=== PATIENT | male | born 1935 ===

== ENCOUNTER 2021-03-07 10:38 | Inpatient (IN) | payer MEDICARE ==
[~2021-03-07] VITALS: Ht 167.6 cm; Wt 74.0 kg
[2021-03-07] MEDS ORDERED: MAG HYDROX/AL HYDROX/SIMETH 30 ML ORAL.SUSP PO PRN (11:45)
[2021-03-07] MEDS ORDERED: ACETAMINOPHEN 325 MG TABLET PO PRN (11:45)
[2021-03-07] MEDS ORDERED: MAGNESIUM HYDROXIDE 2,400 MG/30 ML ORAL.SUSP. PO PRN (11:45)
[2021-03-07] MEDS ORDERED: METHYL SALICYLATE/MENTHOL TOPICAL OINTMENT 57GM TUBE. TP PRN (11:45)
[2021-03-07] MEDS ORDERED: DOCU-109 PO (12:59)
[2021-03-07] MEDS ORDERED: POLY17PO5 PO (12:59)
[2021-03-07] MEDS ORDERED: OLAN5TAB67 PO (12:59)
[2021-03-07] MEDS ORDERED: CYAN100072 PO (12:59)
--- NOTE | 2021-03-07 15:15 | NUR ---
Admission Note with Justification for Admission to [facility] Patient admitted to [facility] for protective oversight for emergency stabilization of acute psychiatric crisis. Pt admitted from: SNF Mode of arrival: POV Accompanied By: unknown Precipitating behaviors that initiated intake and admission: Refused to elevate legs, thinks he's in [facility], refusing skin assessments, wants to take clothes off, argumentative, yelling at people, refusing to eat, refusing meds, delusional, family abandoned him, very angry, calls staff spawn of the devil, paranoid Description of failure of out patient attempts at stabilization in previous setting list behavior and medication trials: Redirection, olanzapine, PCP recommends chetan psych tx Behaviors and assessment findings upon admission: Calm, hunched over r/t curved spine, drowsy at times, several abrasions, +4 pitting edema BLE, groin moist and red, weak, transfers with assist of 2, propels self in w/c, ate all of dinner. Plan: Admit for protective oversight for adjustment and stabilization of medications, behaviors and mood. Intense treatment regimen including groups, medication adjustments, therapy, consistent regimen for ADL's, self care, and sleep hygiene. Daily monitoring by Inpatient staff, Psychiatry, and Medical Physician.
[2021-03-07 15:51] VITALS: BP 166/82
[2021-03-07 17:33] LABS: BASO % 1 % (0-3); EOS # 0.1 x10^3/uL (0.0-0.7); EOS % 2 % (0-3); HEMATOCRIT 34.6 % (39.0-53.0); HEMOGLOBIN 11.9 g/dL (13.0-17.5); LYMPH # 0.7 x10^3/uL (1.0-4.8); LYMPH % 9 % (24-48); MEAN CORPUSCULAR HEMOGLOBIN 36 pg (25-35); MEAN CORPUSCULAR HGB CONC 34 g/dL (31-37); MEAN CORPUSCULAR VOLUME 104 fL (79-100); MONO # 0.7 x10^3/uL (0.0-1.1); MONO % 8 % (0-9); NEUT # 6.3 x10^3uL (1.8-7.7); NEUT % 80 % (31-73); PLATELET COUNT 251 x10^3/uL (140-400); RED BLOOD COUNT 3.33 x10^6/uL (4.30-5.70); RED CELL DISTRIBUTION WIDTH 13.4 % (11.5-14.5); WHITE BLOOD COUNT 7.8 x10^3/uL (4.0-11.0)
[2021-03-07 17:37] LABS: ALBUMIN 3.3 g/dL (3.4-5.0); ALBUMIN/GLOBULIN RATIO 0.7 (1.0-1.7); CALCIUM 8.7 mg/dL (8.5-10.1); CREATININE 1.1 mg/dL (0.7-1.3); GFR 63.6; MAGNESIUM 2.4 mg/dL (1.8-2.4); POTASSIUM 4.1 mmol/L (3.5-5.1); TOTAL BILIRUBIN 0.4 mg/dL (0.2-1.0); TOTAL PROTEIN 7.9 g/dL (6.4-8.2)
[2021-03-07] MEDS: traZODone 50 MG TABLET. PO PRN ×3 (19:52→21:18)
--- NOTE | 2021-03-07 20:13 | PDOC ---
Exam Note: Carmelo Note: Please also refer to the separate dictated note~for this date of service dictated separately.~Patient seen individually. Discussed the patient with Nursing staff reviewed the chart.~Reviewed interim history and current functioning. Reviewed vital signs,~Labs/ Radiology~and current medications noted below. Continue current treatment with the changes noted in the dictated addendum note Assessment: Vital Signs/I&O: Vital Signs Date Time Temp Pulse Resp B/P (MAP) Pulse Ox O2 Delivery O2 Flow Rate FiO2 03/07/21 15:51 98.9 90 18 166/82 (110) 96 Room Air Labs: Laboratory Tests Test 03/07/21 17:09 White Blood Count 7.8 x10^3/uL (4.0-11.0) Red Blood Count 3.33 x10^6/uL (4.30-5.70) L Hemoglobin 11.9 g/dL (13.0-17.5) L Hematocrit 34.6 % (39.0-53.0) L Mean Corpuscular Volume 104 fL (79-100) H Mean Corpuscular Hemoglobin 36 pg (25-35) H Mean Corpuscular Hemoglobin Concent 34 g/dL (31-37) Red Cell Distribution Width 13.4 % (11.5-14.5) Platelet Count 251 x10^3/uL (140-400) Neutrophils (%) (Auto) 80 % (31-73) H Lymphocytes (%) (Auto) 9 % (24-48) L Monocytes (%) (Auto) 8 % (0-9) Eosinophils (%) (Auto) 2 % (0-3) Basophils (%) (Auto) 1 % (0-3) Neutrophils # (Auto) 6.3 x10^3uL (1.8-7.7) Lymphocytes # (Auto) 0.7 x10^3/uL (1.0-4.8) L Monocytes # (Auto) 0.7 x10^3/uL (0.0-1.1) Eosinophils # (Auto) 0.1 x10^3/uL (0.0-0.7) Basophils # (Auto) 0.0 x10^3/uL (0.0-0.2) D-Dimer (Dyan) 1.28 mg/L (0.00-0.50) H Sodium Level 140 mmol/L (136-145) Potassium Level 4.1 mmol/L (3.5-5.1) Chloride Level 104 mmol/L (98-107) Carbon Dioxide Level 28 mmol/L (21-32) Anion Gap 8 (6-14) Blood Urea Nitrogen 16 mg/dL (8-26) Creatinine 1.1 mg/dL (0.7-1.3) Estimated GFR (Cockcroft-Gault) 63.6 BUN/Creatinine Ratio 15 (6-20) Glucose Level 137 mg/dL (70-99) H Calcium Level 8.7 mg/dL (8.5-10.1) Magnesium Level 2.4 mg/dL (1.8-2.4) Total Bilirubin 0.4 mg/dL (0.2-1.0) Aspartate Amino Transferase (AST) 17 U/L (15-37) Alanine Aminotransferase (ALT) 16 U/L (16-63) Alkaline Phosphatase 111 U/L (46-116) Total Protein 7.9 g/dL (6.4-8.2) Albumin 3.3 g/dL (3.4-5.0) L Albumin/Globulin Ratio 0.7 (1.0-1.7) L Current Medications: I have reviewed the current psychotropics carefully including drug interactions. Risk benefit ratio favors no change other than as noted in my dictated progress note. JENNY CHEUNG MD Mar 07, 2021 20:13
[2021-03-07 21:00] LABS: BACTERIA,URINE FEW /HPF (0-FEW); BILIRUBIN,URINE NEG (NEG); CLARITY,URINE HAZY; COLOR,URINE YELLOW; GLUCOSE,URINE NEG (NEG); NITRITE,URINE NEG (NEG); RBC,URINE OCC /HPF (0-2); SQUAMOUS EPITHELIAL CELL,UR OCC /LPF; WBC,URINE >40 /HPF (0-4)
[2021-03-07] MEDS: LORazepam 0.5 MG TABLET PO PRN (21:18)
--- NOTE | 2021-03-07 22:54 | NUR ---
Pt highly agitated and combative this evening. Pt yelling out stating that he needs to leave and is upset about being here. Pt A/O to self only. Cursing at staff. Refused crushed PRNs. Pt refusing to stay in his bed. PRN Zyprexa and Trazodone administered sublingually with staff x5. Pt combative and spit medications on staff. PRNs readministered sublingually. Pt then proceeded to spit phlegm all over the floor. Pt taken to the mats on the quiet room floor for safety. Repeatedly yelling help. Pt undressed and crawled into the hallway. Dr. Naeem israel. Orders received. PRN Ativan and repeat Trazodone administered sublingually with staff x5. Pt placed in onesie. Pt currently asleep on mats in quiet room. Will continue to monitor.
[2021-03-08 06:33] VITALS: BP 165/73
[2021-03-08 07:10] LABS: HEMOGLOBIN A1C 5.6 % (4.8-5.6)
--- NOTE | 2021-03-08 08:26 | EKG ---
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
[2021-03-08 09:10] LABS: THYROXINE 5.1 ug/dL (4.5-12.0)
[2021-03-08] MEDS ORDERED: DOCUSATE SODIUM 100 MG CAPSULE PO PRN (14:00)
[2021-03-08] MEDS ORDERED: POLYETHYLENE GLYCOL 3350 17 GM PACKET. PO PRN (14:00)
--- NOTE | 2021-03-08 16:08 | NUR ---
Nursing note: Patient is in hallway for morning medication & assessment. He is alert and oriented to self only. He propels self in w/c, requires a 2:1 assist with transfers. Patient denies pain/discomfort. He is currently resting in w/c in hallway with eyes closed. This nurse noted orders for nystatin powder BID. Will continue to monitor.
[2021-03-08 16:11] VITALS: BP 130/74
[2021-03-08 16:32] LABS: THYROID STIM HORMONE (TSH) 0.845 uIU/mL (0.358-3.740)
[2021-03-08] MEDS: traZODone 50 MG TABLET. PO PRN (20:50)
[2021-03-08] MEDS: NYSTATIN TOPICAL POWDER 15GM BOTTLE. TP SCH (20:50)
--- NOTE | 2021-03-08 21:06 | PDOC ---
Exam Note: Carmelo Note: Please also refer to the separate dictated note~for this date of service dictated separately.~Patient seen individually. Discussed the patient with Nursing staff reviewed the chart.~Reviewed interim history and current functioning. Reviewed vital signs,~Labs/ Radiology~and current medications noted below. Continue current treatment with the changes noted in the dictated addendum note Assessment: Vital Signs/I&O: Vital Signs Date Time Temp Pulse Resp B/P (MAP) Pulse Ox O2 Delivery O2 Flow Rate FiO2 03/08/21 16:11 98.3 83 17 130/74 (92) 96 03/07/21 15:51 Room Air I & O 03/07/21 03/07/21 03/08/21 15:00 23:00 07:00 Intake Total 240 ml Balance 240 ml Current Medications: Meds: Current Medications Medications (Trade) Dose Ordered Sig/Joseline Route PRN Reason Start Time Stop Time Status Last Admin Dose Admin Lorazepam (Ativan) 0.5 mg PRN Q2HR PRN PO ANXIETY / AGITATION 03/07/21 21:15 03/07/21 21:18 Nystatin (Nystop) 1 rivka BID TP 03/08/21 21:00 03/08/21 20:50 I have reviewed the current psychotropics carefully including drug interactions. Risk benefit ratio favors no change other than as noted in my dictated progress note. JENNY CHEUNG MD Mar 08, 2021 21:06
--- NOTE | 2021-03-08 22:17 | HP ---
DATE OF SERVICE: 03/08/2021 ADMIT DATE: 03/07/2021 PSYCHIATRIC ADMISSION HISTORY/EVALUATION This is a late entry, date of service 03/07, covers elements not covered in my initial note, 03/07. I met with the patient evening of 03/07. Previously discussed with Concha Driscoll, intake co-coordinator, reviewed information from [facility] in [place], [place]. IDENTIFYING DATA: The patient is an 85-year-old male referred to us from the above Custodial by his primary care physician/psychiatrist on account of worsening confusion, delusions, believing he was in half-way. He was getting increasingly agitated, psychotic, calling staff members "pawn of the devil." He was yelling at people, refusing to eat, refusing medications. He believes the family had abandoned him and he was angry, irritable with marked mood lability. Behaviors were deemed dangerous, unmanageable at the facility, resulting in this referral. CHIEF COMPLAINT: "I am okay. I won't take my medications, I don't need them." Additionally, after I met with the patient as called by ASHA Moreira late at night as the patient was getting extremely agitated, disruptive, rolling himself on the floor, refusing medications. We did start Zyprexa Zydis p.r.n., gave him trazodone to help him sleep and later Ativan was added p.r.n. and finally, he did sleep. HISTORY OF PRESENT ILLNESS: The patient has a history of dementia, Alzheimer's, vascular type. He has been residing at the [facility] for some time, recently getting more paranoid, delusional with sleep and appetite changes, psychotic, agitated, aggressive. No active suicidal or homicidal ideation. PAST PSYCHIATRIC HISTORY: As above. MEDICAL HISTORY: Cellulitis, left lower extremity, osteoporosis, hearing loss, nonrheumatic aortic valve disease, benign prostatic hypertrophy, history of repeated falls, cognitive deficit edema. CODE STATUS: Full code. DIET: Regular. ALLERGIES: Negative. Takes medications whole, ambulates in wheelchair with 2-person transfer. UA completed 03/07, culture is pending. CURRENT PSYCHOTROPICS: Zyprexa 2.5 mg q. 2 hours p.r.n., psychosis, agitation, trazodone 50 mg at bedtime p.r.n. insomnia, may repeat x2, one hour apart, Ativan 0.5 mg q. 2 hours p.r.n. anxiety, agitation, max 2 mg in 24 hours. All his psychotropics were added after he was hospitalized. FAMILY HISTORY: Noncontributory. SOCIAL HISTORY: No history of alcohol, drug abuse, physical, sexual, elder abuse. He is not known to be a perpetrator. REACTION TO HOSPITALIZATION: The patient oblivious of it. REVIEW OF SYSTEMS: Ambulation impaired wheelchair with 2 person transfer. No CV, , eye, ENT, pulmonary system symptoms on review. Reliability poor. MENTAL STATUS EXAM: The patient was seen individually on evening of 03/07. He is lying in bed, oriented to himself. Insight, judgment, recent and remote memory, attention, concentration, fund of knowledge, poor, consistent with his diagnosis. He is hard of hearing. LABORATORY DATA: Reviewed. IMPRESSION: Major neurocognitive disorder, Alzheimer, vascular with delusion, depression, behavioral disturbance, anxiety disorder, unspecified; impulse control disorder, unspecified; rule out infection. Rest as above. PLAN: Admit to Geropsychiatry unit at [facility]. I will see the patient daily individually from a psychiatric standpoint, medical followup, Dr. Latham/Dr. Taylor. Continue patient on his current psychotropics and as noted, the Zyprexa, trazodone, Ativan were added. Observe baseline and make further adjustments as clinically indicated. ESTIMATED LENGTH OF STAY: 10-12 days. DISPOSITION PLANS: Back to fpc when stable. TUCKER DR: Panchito TID: [id number]
--- NOTE | 2021-03-08 23:13 | NUR ---
Pt located in the hallway this evening sitting calmly in his wheelchair. No agitation or aggression. Compliant with all cares. Pt does not have scheduled HS medications. PRN Trazodone administered crushed in one bite of pudding.
--- NOTE | 2021-03-09 00:19 | CONS ---
DATE OF CONSULTATION: 03/08/2021 ATTENDING PHYSICIAN: Dr. Cheung. We are asked to see this patient for medical consultation. HISTORY OF PRESENT ILLNESS: The patient is an 85-year-old gentleman, admitted to the [facility] with some paranoia. He is demented. He is refusing to eat, refusing his meds, become somewhat delusional. No recent fevers or chills. He has very little medicine. He takes B12 shots. PAST MEDICAL HISTORY: Has indicated he has venous insufficiency, chronic cellulitis, generalized debilitation, benign prostatic hypertrophy, pedal edema. He also has severe kyphoscoliosis. He is hunched over and as a result, he has formal restrictive lung disease. There is no pulmonary symptoms at this time. ALLERGIES: He has no recorded drug allergies. CURRENT MEDICATIONS: Includes B12, docusate, and MiraLax. In the [facility] behavioral unit, he was started on trazodone, olanzapine and lorazepam. SOCIAL HISTORY: He is a nonsmoker, nondrinker. FAMILY HISTORY: Unobtainable. REVIEW OF SYSTEMS: Unobtainable due to the patient's confusion. PHYSICAL EXAMINATION: GENERAL: When I saw him, this is a pleasant elderly gentleman in no acute distress. We tried to have a fairly normal conversation. VITAL SIGNS: His blood pressure is 160/80, pulse is 90 and regular, temperature 98.9 degrees Fahrenheit, oxygen saturation 94% on room air. HEENT: Head is without trauma. The pupils are reactive. Sclerae nonicteric. Oropharynx is clear. NECK: Supple, no bruits identified. LUNGS: Good breath sounds. CARDIOVASCULAR: Showed regular heart tones. No gallops. ABDOMEN: Soft. EXTREMITIES: Showed 2+ nonpitting edema. NEUROLOGIC: Function focally intact. Speech is fluent. He has no focal deficits. PERTINENT LABORATORY STUDIES: Admission hemoglobin was 11.9 g/dL with a white count of 7800. Electrolytes all within normal range. Creatinine 1.1. Transaminases were normal. ASSESSMENT: 1. This 85-year-old gentleman is admitted to the [facility] with increasing delusional behavior with underlying dementia. 2. Kyphoscoliosis with restrictive lung disease, asymptomatic at this time. 3. Stasis dermatitis. 4. Generalized debilitation. 5. Degenerative arthritis. RECOMMENDATIONS: 1. This patient has been seen and is medically stable. 2. I reviewed his limited meds and there are no changes. 3. He is stable from a medical standpoint. We should gladly follow along during his inpatient course. Thank you again for asking me to see this patient for medical consultation. PARMJIT/MARIANNE DR: Safia TID: [id number] CC: JENNY CHEUNG MD
[2021-03-09 06:00] VITALS: BP 146/81
--- NOTE | 2021-03-09 07:33 | PDOC ---
Exam Note: Carmelo Note: This note is a late entry for 03/08/2021 covers elements not covered in my initial note. Subjective: The patient was seen individually in the evening of 03/08/2021 with Ligia BARRY, discussed and reviewed the chart. The patient slept 6-1/4 hours previous night. Nursing staff had called me late last night. He was extremely agitated, rolling himself on the floor. We have added Zyprexa and trazodone to help him sleep and for his psychotic symptoms and then later added Ativan for his anxiety. He finally slept and has done better today, so far this evening he is doing better per nursing staff. UA is pending. Review of Systems: Ambulation impaired, in wheelchair. No CV, , pulmonary, eye, ENT system symptoms on review. Reliability poor. Mental Status Exam: The patient is oriented to himself. Insight and judgment, recent and remote memory, attention and concentration, fund of knowledge is poor consistent with his diagnosis. Laboratory Data: Reviewed. Impression: Major neurocognitive disorder, Alzheimer, vascular with delusion, depression, behavioral disturbance. Anxiety disorder unspecified. Impulse control disorder unspecified and rest from admission. Plan: Continue current psychotropics and p.r.n.s., noted above. Start Zoloft 25 mg a day for 3 days, then 50 mg a day thereafter for his mood and anxiety symptoms. Adjust further as clinically indicated. Assessment: Vital Signs/I&O: Vital Signs Date Time Temp Pulse Resp B/P (MAP) Pulse Ox O2 Delivery O2 Flow Rate FiO2 03/09/21 06:00 98.4 87 16 146/81 (102) 92 03/07/21 15:51 Room Air I & O 03/08/21 03/08/21 03/09/21 15:00 23:00 07:00 Intake Total 600 ml 240 ml 0 ml Balance 600 ml 240 ml 0 ml Current Medications: Meds: Current Medications Medications (Trade) Dose Ordered Sig/Joseline Route PRN Reason Start Time Stop Time Status Last Admin Dose Admin Acetaminophen (Tylenol) 650 mg PRN Q6HRS PRN PO MILD PAIN / TEMP > 100.3'F 03/07/21 11:45 Multi-Ingredient Ointment (Analgesic [place]) 1 rivka PRN QID PRN TP MUSCLE PAIN 03/07/21 11:45 Al Hydroxide/Mg Hydroxide (Mylanta Plus Xs) 15 ml PRN AFTMEALHC PRN PO DYSPEPSIA 03/07/21 11:45 Magnesium Hydroxide (Milk Of Magnesia) 2,400 mg PRN QHS PRN PO CONSTIPATION 03/07/21 11:45 Trazodone HCl (Desyrel) 50 mg PRN QHS PRN PO INSOMNIA, MAY REPEAT X2 03/07/21 19:45 03/08/21 20:50 Olanzapine (ZyPREXA ZYDIS) 2.5 mg PRN Q2HRS PRN PO PSYCHOSIS 03/07/21 19:45 03/07/21 20:00 Lorazepam (Ativan) 0.5 mg PRN Q2HR PRN PO ANXIETY / AGITATION 03/07/21 21:15 03/07/21 21:18 Nystatin (Nystop) 1 rivka BID TP 03/08/21 21:00 03/08/21 20:50 Cyanocobalamin (Vitamin B-12) 1,000 mcg DAILY08 PO 03/09/21 08:00 Docusate Sodium (Colace) 100 mg PRN DAILY PRN PO 2ND CHOICE CONSTIPATION 03/08/21 14:00 Polyethylene Glycol (miraLAX) 17 gm PRN DAILY PRN PO FIRST CHOICE CONSTIPATION 03/08/21 14:00 Sertraline HCl (Zoloft) 25 mg DAILY PO 03/09/21 09:00 03/11/21 21:00 Sertraline HCl (Zoloft) 50 mg DAILY PO 03/12/21 09:00 Current Medications Medications (Trade) Dose Ordered Sig/Joseline Route PRN Reason Start Time Stop Time Status Last Admin Dose Admin Nystatin (Nystop) 1 rivka BID TP 03/08/21 21:00 03/08/21 20:50 I have reviewed the current psychotropics carefully including drug interactions. Risk benefit ratio favors no change other than as noted in my dictated progress note. Diagnosis: Problems: (1) Major neurocognitive disorder (2) Dementia in Alzheimer's disease with delusions (3) Dementia in Alzheimer's disease with depression (4) Dementia of the Alzheimer's type with early onset with behavioral disturbance (5) Dementia, vascular, with delusions (6) Dementia, vascular, with depression (7) Anxiety disorder, unspecified (8) Impulse control disorder, unspecified JENNY CHEUNG MD Mar 09, 2021 07:33
[2021-03-09] MEDS: NYSTATIN TOPICAL POWDER 15GM BOTTLE. TP SCH ×2 (09:12→21:00)
[2021-03-09] MEDS: CYANOCOBALAMIN (VITAMIN B-12) 1,000 MCG TABLET. PO SCH (09:13)
[2021-03-09] MEDS: SERTRALINE 25 MG TABLET. PO SCH (09:13)
--- NOTE | 2021-03-09 15:34 | NUR ---
PSYCHOSOCIAL ASSESSMENT ADMISSION DATE: 03/07/21 CONTACT INFORMATION: DPOA/Guardian Contact Name: Jon Robertson Contact Address: [place], [place] Contact Phone #: ETHNIC ORIGIN: REASONS FOR ADMISSION: ADDITIONAL ADMISSION COMMENTS: According to the intake, thinks he's in detention, calls "spawn of the devil", yelling at people, refusing to eat, refusing meds, delusional, thinks family abandoned him and angry. REASON FOR ADMISSION IN PATIENT/FAMILY'S OWN WORDS: He just gets into these fits and then levels out PATIENT/FAMILY EXPECTATIONS FOR ADMISSION: Medication and behavior management LIVING SITUATION: Patient lives with: Memory Care Other living arrangements: Contact Name: [facility] Contact Address: [address] [place] [address]; [place] [address] Contact Phone #: Contact Fax #: FAMILY RELATIONS: Marital Status: # of Marriages: 1 # of Children: 2 [facility] Family Support: Involved in DC Planning Additional Comments r/t Family: Pt had been to his , Agusto Allan, for 60 years. Pt cared for his who had severe diabetes, arthritis and Dementia until he had to place her at [facility]. Pt about a year ago. Pt has 2 sons: Mc who lives in [place] and Jeremias who lives in [place]. They are somewhat estranged from pt but keeps in contact with the DPOA. SIGNIFICANT PSYCHIATRIC/MEDICAL HISTORY: Psychiatric/Treatment History: This is pt first stay on [facility]. Pertinent Family History: None noted HISTORICAL DATA: Childhood Environment: Supportive Childhood Environment Additional Comments: Pt grew up in [place], [place]. Pt is the 2nd oldest of 4 siblings, who are all still living. Pt sister is 87, pt is 85, his other sister is 82 and his youngest brother is 71. "They were essentially teenagers and out of the house when I was born, I was raised differently than Joaquín and my sisters, so it's hard for me to speak on their childhood versus mine". 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 Pt bought a bunch of land and then built [employer]/townhomes on the land. service: [employer] for the [employer] (years spent unknown) Mosque background: Pt is a devout Evangelical. He attended Evangelical tenriism services until he "couldn't keep up the facade any longer". Sexual orientation: Heterosexual Educational Level: Pt did graduate high school (12 years) and attended one year of college. Past/Present Interests/Hobbies: "he has none. He worked all the time". Financial support/resources: Detention/Pension Social Security Monthly income: Person handling finances: Pt brother handles all finances Do you have a history of legal problems: N Cultural considerations: None SOCIAL RELATIONSHIPS-CURRENT/PAST: Psychiatrist: None PCP: Dr. Christiano Mcarthur Counselor/Therapist: None Veterans' Administration: None Support Group: Non Mannequin Mold Maker/Forensic Sergeant: None Other relationships: staff at [facility] STRENGTHS & WEAKNESSES: Patient's strengths: Good family support Good verbal skills Other patient strengths: Patient's weaknesses: Impulsive Physically Aggressive Verbally Aggressive Other patient weaknesses: PRELIMINARY PLAN OF TREATMENT: Preliminary plan: Promote Coping Skill Improved Social Skills Medication Stabilization Dec. Outbursts Dec. Aggression Other preliminary treatment comments: DISCHARGE PLANNING: Discharge planning/disposition: Current Living Arrange. Additional discharge needs identified: Potential referrals for psychiatric follow-up at discharge ADDITIONAL INFORMATION: Other Pertinent Data: ANDRE completed PSA with pt brother, Jon. ANDRE gave Jon an update on pt behaviors, who noted that pt goes through these "fits". He knows that people are there to help him but then gets delusional and believes that his son is conspiring with others against him, which results in him acting out. Pt brother noted that he found pt on the floor naked and to be there all day; pt refused to let him help him up to the point where, Jon had to call the ambulance for help. Pt has been at his current facility for less than a month but continues to have his properties, in which Jon manages for him. Jon did note he believes that pt has had a slow decline over the last 10 years and understands that he may live for another 10 years at this rate. ANDRE will continue to keep pt brother updated and work with him on getting pt moved back to [facility] once stable.
--- NOTE | 2021-03-09 15:55 | TX PLAN ---
Interdisciplinary Tx Plan Admission Information Mar 07, 2021 at 15:19 Legal Status (on Admission): Voluntary DPOA/Guardian Name: Jon Robertson Contact Other Contact Name: [facility] gay Erickson Other Contact Verified Code Status: Full Code Allergies: Coded Allergies: No Known Allergies (Verified Allergy, Unknown, 03/07/21) Diagnoses Primary Diagnosis: Dementia with Behavioral Disturbance Reasons for Admission: Delusions, Sig. Change Appetite, Suspicious/paranoid, Confusion/Disoriented, Other Problem in Patient's Words: He just gets into these fits and then levels out Additional Admission Comments: According to the intake, thinks he's in penitentiary, calls "spawn of the devil", yelling at people, refusing to eat, refusing meds, delusional, thinks family abandoned him and angry. Problems Active Problems: combative delusional refusal of medications upon admissions Inactive Problems: N/A Pt Strengths/Limitations Ability for Frontier: Poor Cognitive Functioning/Ability: Fair Communication Skills/Ability: Fair Financial Resources: Good Insight/Judgement: Poor Intellectual Ability: Fair Physical Health: Fair Social Skills: Poor Stability in Family: Good Stability in School/Work: Poor Verbal Skills: Fair Discharge Criteria Discharge Criteria: No need for close observ., Adequate arrangements @DC, Improved behavior, Improved mood/thought Preliminary Discharge Plan Preliminary DC Plan: Current Living Arrange. Special Precautions Fall Risk: Moderate Initial D/C Plan Pt will return to [facility] at discharg Identified Discharge Needs: Potential referrals for psychiatric follow-up at discharge Currently Utilized Resources Currently Utilized Resources/P: Primary Care Physican Referrals Community Resources: Psychiatrist Identified Problems/Hx/Goals Objectives/Short-Term Goals Short Term Goals: Feb. Aggression, Feb. Outbursts, Improved Social Skills, Medication Stabilization, Promote Coping Skill Short Term Goals in Patient's: N/A Interventions/Frequency Staff Interventions/Frequency&: Psychiatrist to assess pt at least 3x per week for medication management. Social Work to assess pt at least 2x per week to identify barriers to care and discharge planning. Nursing to asess medication effects, behavior modification and completion of 15 minute checks daily. Encourage participation in group activities (if applicable) or 1:1 engagement based off Activity Dept goals. 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 Pt bought a bunch of land and then built [employer] on the land. Education: Pt did graduate high school (12 years) and attended one year of college. Community Follow-up Primary Care Physician Community Provider/Family Inpu: He has these "fits" sometimes. He just need something to take the edge off so he can be cared for at his facility. Treatment Plan Explained Patient/Maltster had this treatment plan explained to him/her as indicated by the signature below and has been given the opportunity to ask questions and make suggestions: Date: Patient/Maltster Signature: Patient/Maltster Decline: No (Pt brother is active in pt care.) KRISHNA RIVAS Mar 09, 2021 15:55
[2021-03-09 16:00] VITALS: BP 169/89
--- NOTE | 2021-03-09 18:30 | NUR ---
Patient has been calm, cooperative, and pleasantly confused throughout this shift. He has been drowsy throughout this shift and generally withdrawn. Patient was cooperative with staff when showered and toileted. Will continue to monitor and report to oncoming shift.
[2021-03-09] MEDS: ENOXAPARIN ** NOTE DOSE ** SYRINGE SQ SCH (21:00)
--- NOTE | 2021-03-09 21:01 | PDOC ---
Exam Note: Carmelo Note: Please also refer to the separate dictated note~for this date of service dictated separately.~Patient seen individually. Discussed the patient with Nursing staff reviewed the chart.~Reviewed interim history and current functioning. Reviewed vital signs,~Labs/ Radiology~and current medications noted below. Continue current treatment with the changes noted in the dictated addendum note Assessment: Vital Signs/I&O: Vital Signs Date Time Temp Pulse Resp B/P (MAP) Pulse Ox O2 Delivery O2 Flow Rate FiO2 03/09/21 16:00 98.0 86 18 169/89 (115) 95 Room Air I & O 03/08/21 03/08/21 03/09/21 15:00 23:00 07:00 Intake Total 600 ml 240 ml 0 ml Balance 600 ml 240 ml 0 ml Current Medications: Meds: Current Medications Medications (Trade) Dose Ordered Sig/Joseline Route PRN Reason Start Time Stop Time Status Last Admin Dose Admin Acetaminophen (Tylenol) 650 mg PRN Q6HRS PRN PO MILD PAIN / TEMP > 100.3'F 03/07/21 11:45 Multi-Ingredient Ointment (Analgesic [place]) 1 rivka PRN QID PRN TP MUSCLE PAIN 03/07/21 11:45 Al Hydroxide/Mg Hydroxide (Mylanta Plus Xs) 15 ml PRN AFTMEALHC PRN PO DYSPEPSIA 03/07/21 11:45 Magnesium Hydroxide (Milk Of Magnesia) 2,400 mg PRN QHS PRN PO CONSTIPATION 03/07/21 11:45 Trazodone HCl (Desyrel) 50 mg PRN QHS PRN PO INSOMNIA, MAY REPEAT X2 03/07/21 19:45 03/08/21 20:50 Olanzapine (ZyPREXA ZYDIS) 2.5 mg PRN Q2HRS PRN PO PSYCHOSIS 03/07/21 19:45 03/07/21 20:00 Lorazepam (Ativan) 0.5 mg PRN Q2HR PRN PO ANXIETY / AGITATION 03/07/21 21:15 03/07/21 21:18 Nystatin (Nystop) 1 rivka BID TP 03/08/21 21:00 03/09/21 09:12 Cyanocobalamin (Vitamin B-12) 1,000 mcg DAILY08 PO 03/09/21 08:00 03/09/21 09:13 Docusate Sodium (Colace) 100 mg PRN DAILY PRN PO 2ND CHOICE CONSTIPATION 03/08/21 14:00 Polyethylene Glycol (miraLAX) 17 gm PRN DAILY PRN PO FIRST CHOICE CONSTIPATION 03/08/21 14:00 Sertraline HCl (Zoloft) 25 mg DAILY PO 03/09/21 09:00 03/11/21 21:00 03/09/21 09:13 Sertraline HCl (Zoloft) 50 mg DAILY PO 03/12/21 09:00 Enoxaparin Sodium (Lovenox 80mg Syringe) 70 mg Q12HR SQ 03/09/21 21:00 Current Medications Medications (Trade) Dose Ordered Sig/Joseline Route PRN Reason Start Time Stop Time Status Last Admin Dose Admin Cyanocobalamin (Vitamin B-12) 1,000 mcg DAILY08 PO 03/09/21 08:00 03/09/21 09:13 Sertraline HCl (Zoloft) 25 mg DAILY PO 03/09/21 09:00 03/11/21 21:00 03/09/21 09:13 I have reviewed the current psychotropics carefully including drug interactions. Risk benefit ratio favors no change other than as noted in my dictated progress note. Diagnosis: Problems: (1) Impulse control disorder, unspecified (2) Anxiety disorder, unspecified (3) Dementia, vascular, with depression (4) Dementia, vascular, with delusions (5) Dementia in Alzheimer's disease with depression (6) Dementia in Alzheimer's disease with delusions (7) Dementia of the Alzheimer's type with early onset with behavioral disturbance (8) Major neurocognitive disorder JENNY CHEUNG MD Mar 09, 2021 21:01
--- NOTE | 2021-03-09 22:56 | NUR ---
Nursing Note Pt in bed, calm and cooperative, denies complaints. Now sleeping well. Med compliant.
[2021-03-10 05:59] VITALS: BP 168/74
--- NOTE | 2021-03-10 08:00 | PDOC ---
Exam Note: Carmelo Note: This note is a late entry for 03/09/2021 covers elements not covered in my initial note. Subjective: The patient was seen individually in the evening of 03/09/2021 with Joseluis BARRY, discussed and reviewed the chart. The patient slept 6-3/4 hours previous night. He remains confused, compliant with medications. He is cooperative with cares. No behaviors last night. He is oriented x1. He is going to have an ultrasound left lower extremity to rule out DVT per Dr. Latham. Review of Systems: Ambulation impaired, in wheelchair. No CV, , pulmonary, eye, ENT system symptoms on review. Reliability poor. Mental Status Exam: The patient is oriented to himself. He was eating ice-ream and quite pleasant and cooperative. Insight and judgment, recent and remote memory, attention and concentration, fund of knowledge is poor consistent with his diagnosis. Laboratory Data: Reviewed. Impression: Major neurocognitive disorder, Alzheimer, vascular with delusion, depression, behavioral disturbance. Anxiety disorder unspecified. Impulse control disorder unspecified and rest from admission. Plan: We will continue to gradually increase the Zoloft. Maintain rest of the psychotropics unchanged. If mood lability worsens, he may use low dose Seroquel. Assessment: Vital Signs/I&O: Vital Signs Date Time Temp Pulse Resp B/P (MAP) Pulse Ox O2 Delivery O2 Flow Rate FiO2 03/10/21 05:59 97.4 73 18 168/74 (105) 93 03/09/21 16:00 Room Air I & O 03/09/21 03/09/21 03/10/21 15:00 23:00 07:00 Intake Total 600 ml 360 ml Balance 600 ml 360 ml Current Medications: Meds: Current Medications Medications (Trade) Dose Ordered Sig/Joseline Route PRN Reason Start Time Stop Time Status Last Admin Dose Admin Acetaminophen (Tylenol) 650 mg PRN Q6HRS PRN PO MILD PAIN / TEMP > 100.3'F 03/07/21 11:45 Multi-Ingredient Ointment (Analgesic [place]) 1 rivka PRN QID PRN TP MUSCLE PAIN 03/07/21 11:45 Al Hydroxide/Mg Hydroxide (Mylanta Plus Xs) 15 ml PRN AFTMEALHC PRN PO DYSPEPSIA 03/07/21 11:45 Magnesium Hydroxide (Milk Of Magnesia) 2,400 mg PRN QHS PRN PO CONSTIPATION 03/07/21 11:45 Trazodone HCl (Desyrel) 50 mg PRN QHS PRN PO INSOMNIA, MAY REPEAT X2 03/07/21 19:45 03/08/21 20:50 Olanzapine (ZyPREXA ZYDIS) 2.5 mg PRN Q2HRS PRN PO PSYCHOSIS 03/07/21 19:45 03/07/21 20:00 Lorazepam (Ativan) 0.5 mg PRN Q2HR PRN PO ANXIETY / AGITATION 03/07/21 21:15 03/07/21 21:18 Nystatin (Nystop) 1 rivka BID TP 03/08/21 21:00 03/09/21 21:00 Cyanocobalamin (Vitamin B-12) 1,000 mcg DAILY08 PO 03/09/21 08:00 03/09/21 09:13 Docusate Sodium (Colace) 100 mg PRN DAILY PRN PO 2ND CHOICE CONSTIPATION 03/08/21 14:00 Polyethylene Glycol (miraLAX) 17 gm PRN DAILY PRN PO FIRST CHOICE CONSTIPATION 03/08/21 14:00 Sertraline HCl (Zoloft) 25 mg DAILY PO 03/09/21 09:00 03/11/21 21:00 03/09/21 09:13 Sertraline HCl (Zoloft) 50 mg DAILY PO 03/12/21 09:00 Enoxaparin Sodium (Lovenox 80mg Syringe) 70 mg Q12HR SQ 03/09/21 21:00 03/09/21 21:00 Current Medications Medications (Trade) Dose Ordered Sig/Joseline Route PRN Reason Start Time Stop Time Status Last Admin Dose Admin Cyanocobalamin (Vitamin B-12) 1,000 mcg DAILY08 PO 03/09/21 08:00 03/09/21 09:13 Sertraline HCl (Zoloft) 25 mg DAILY PO 03/09/21 09:00 03/11/21 21:00 03/09/21 09:13 Enoxaparin Sodium (Lovenox 80mg Syringe) 70 mg Q12HR SQ 03/09/21 21:00 03/09/21 21:00 I have reviewed the current psychotropics carefully including drug interactions. Risk benefit ratio favors no change other than as noted in my dictated progress note. Diagnosis: Problems: (1) Impulse control disorder, unspecified (2) Anxiety disorder, unspecified (3) Dementia, vascular, with depression (4) Dementia, vascular, with delusions (5) Dementia in Alzheimer's disease with depression (6) Dementia in Alzheimer's disease with delusions (7) Dementia of the Alzheimer's type with early onset with behavioral disturbance (8) Major neurocognitive disorder JENNY CHEUNG MD Mar 10, 2021 08:00
--- NOTE | 2021-03-10 08:10 | RAD ---
US DPLX VENOUS EXTREMITY LOWER LT History: Reason: LLE is more swollen than RLE / Spl. Instructions: / History: Comparison: None. Technique: Multiple longitudinal and transverse high resolution real-time images of the venous system of left lower extremity were obtained with color and Doppler sampling. Findings: The common femoral, superficial femoral, popliteal and proximal calf veins are all patent and demonst rate normal flow and compressibility. Normal respiratory phasicity and augmentation is present. Left lower extremity subcutaneous edema. Impression: 1. No evidence of deep vein thrombosis. 2. Left lower extremity subcutaneous edema. Electronically signed by: Giancarlo Alicia DO (03/10/2021 8:07 AM) [id number]
[2021-03-10] MEDS: CYANOCOBALAMIN (VITAMIN B-12) 1,000 MCG TABLET. PO SCH (09:24)
[2021-03-10] MEDS: SERTRALINE 25 MG TABLET. PO SCH (09:24)
[2021-03-10] MEDS: NYSTATIN TOPICAL POWDER 15GM BOTTLE. TP SCH ×2 (09:24→20:53)
[2021-03-10] MEDS: ENOXAPARIN ** NOTE DOSE ** SYRINGE SQ SCH (09:25)
--- NOTE | 2021-03-10 11:32 | NUR ---
WEEKLY ACTIVITY THERAPY NOTE Date of Admission:03/07/21 Date of AT Assessment: TBD Precipitating behaviors that initiated intake and admission:Refused to elevate legs, thinks he's in group home, refusing skin assessments, wants to take clothes off, argumentative, yelling at people, refusing to eat, refusing meds, delusional, family abandoned him, very angry, calls staff spawn of the devil, paranoid Goal aimed: TBD Initial Goal: TBD Weekly progress towards goal: NA Group participation level: NA Weekly highlights: arrived on [facility] Behaviors observed: Plan: meet/assess pt Beneficial adaptations: TBD
--- NOTE | 2021-03-10 13:50 | NUR ---
ACTIVITY THERAPY ASSESSMENT completed based on notes,observation and interview. RD SCIENTIST introduced self and explained groups offered on [facility]. Pt said that he enjoys working, hunting, magazines and gardening. Pt was able to answer his birthday accurately but couldn't identify the current year. Pt stated that he has trouble remembering things and needed ample time to answer questions. Pt said that his towards the beginning of this year and they have three sons and two daughters together. Per nots pt has two sons. Pt expressed frustration with his sons saying they put him in here and they are worthless. Pt stated"I'm very disgusted with them because their trying to steal everything." Pt reports that he uses a wheelchair at all times to ambulate. RD SCIENTIST asked pt if he is experiencing any stress and he said "yes, I'm trying to get back to work on my property but I can't maintain it." Pt said that he typically tobias with stress by "trying to move on to the next thing." Pt reports that he was living at home prior to his admission but per notes pt was admitted to [facility] from a memory care unit. Per notes pt is mostly pleasantly confused and cooperative with staff. Initial goal aimed to increase socialization and engagement. Pt will participate in at least three Activity Therapy session per week. Addendum: 03/24/21 at 1223 by KIRA TILLMAN ACT Goal changed 03/24:Pt will participate in at least five Activity Therapy session per week
[2021-03-10 15:51] VITALS: BP 157/80
--- NOTE | 2021-03-10 16:06 | NUR ---
public policy coordinator was out of the office when Bonilla was admitted TO [facility] on 03/07/21. public policy coordinator returned to the office this date and contacted [facility] to obtain authorization. public policy coordinator was transferred from Meredith Razo, Richelle, and finally to Lenore. public policy coordinator was on the phone [address] [facility] is out of network and would need to do a single case agreement. public policy coordinator will ask revenue rep to reach out to [facility] for clarification. Call reference number for the call today is [id number]. Isabela Arreola will be the UR reviewer at [phone] ext [phone]. Lenore indicated that a [facility] patient service representative will call back within 24 hours with an authorization number. Addendum: 03/14/21 at 1310 by SARAH POWELL ANDRE was notified by Teja Marsh that [facility] authorization number is [id number] and [id number].
--- NOTE | 2021-03-10 17:56 | NUR ---
Patient has been calm, cooperative, and pleasantly confused throughout this shift. He has been interactive with staff and peers. Patient was cooperative with staff and ADLS. Will continue to monitor and report to oncoming shift.
[2021-03-10] MEDS: AMOXICILLIN 250 MG CAPSULE PO SCH (20:52)
--- NOTE | 2021-03-10 21:07 | PDOC ---
Exam Note: Carmelo Note: Please also refer to the separate dictated note~for this date of service dictated separately.~Patient seen individually. Discussed the patient with Nursing staff reviewed the chart.~Reviewed interim history and current functioning. Reviewed vital signs,~Labs/ Radiology~and current medications noted below. Continue current treatment with the changes noted in the dictated addendum note Assessment: Vital Signs/I&O: Vital Signs Date Time Temp Pulse Resp B/P (MAP) Pulse Ox O2 Delivery O2 Flow Rate FiO2 03/10/21 15:51 98.1 72 16 157/80 (105) 94 Room Air I & O 03/09/21 03/09/21 03/10/21 15:00 23:00 07:00 Intake Total 600 ml 360 ml Balance 600 ml 360 ml Current Medications: Meds: Current Medications Medications (Trade) Dose Ordered Sig/Joseline Route PRN Reason Start Time Stop Time Status Last Admin Dose Admin Acetaminophen (Tylenol) 650 mg PRN Q6HRS PRN PO MILD PAIN / TEMP > 100.3'F 03/07/21 11:45 Multi-Ingredient Ointment (Analgesic [place]) 1 rivka PRN QID PRN TP MUSCLE PAIN 03/07/21 11:45 Al Hydroxide/Mg Hydroxide (Mylanta Plus Xs) 15 ml PRN AFTMEALHC PRN PO DYSPEPSIA 03/07/21 11:45 Magnesium Hydroxide (Milk Of Magnesia) 2,400 mg PRN QHS PRN PO CONSTIPATION 03/07/21 11:45 Trazodone HCl (Desyrel) 50 mg PRN QHS PRN PO INSOMNIA, MAY REPEAT X2 03/07/21 19:45 03/08/21 20:50 Olanzapine (ZyPREXA ZYDIS) 2.5 mg PRN Q2HRS PRN PO PSYCHOSIS 03/07/21 19:45 03/07/21 20:00 Lorazepam (Ativan) 0.5 mg PRN Q2HR PRN PO ANXIETY / AGITATION 03/07/21 21:15 03/07/21 21:18 Nystatin (Nystop) 1 rivka BID TP 03/08/21 21:00 03/10/21 20:53 Cyanocobalamin (Vitamin B-12) 1,000 mcg DAILY08 PO 03/09/21 08:00 03/10/21 09:24 Docusate Sodium (Colace) 100 mg PRN DAILY PRN PO 2ND CHOICE CONSTIPATION 03/08/21 14:00 Polyethylene Glycol (miraLAX) 17 gm PRN DAILY PRN PO FIRST CHOICE CONSTIPATION 03/08/21 14:00 Sertraline HCl (Zoloft) 25 mg DAILY PO 03/09/21 09:00 03/11/21 21:00 03/10/21 09:24 Sertraline HCl (Zoloft) 50 mg DAILY PO 03/12/21 09:00 Enoxaparin Sodium (Lovenox 80mg Syringe) 70 mg Q12HR SQ 03/09/21 21:00 03/10/21 17:44 DC 03/10/21 09:25 Amoxicillin (Amoxil) 500 mg TID PO 03/10/21 21:00 03/17/21 16:00 03/10/21 20:52 Current Medications Medications (Trade) Dose Ordered Sig/Joseline Route PRN Reason Start Time Stop Time Status Last Admin Dose Admin Amoxicillin (Amoxil) 500 mg TID PO 03/10/21 21:00 03/17/21 16:00 03/10/21 20:52 I have reviewed the current psychotropics carefully including drug interactions. Risk benefit ratio favors no change other than as noted in my dictated progress note. Diagnosis: Problems: (1) Impulse control disorder, unspecified (2) Anxiety disorder, unspecified (3) Dementia, vascular, with depression (4) Dementia, vascular, with delusions (5) Dementia in Alzheimer's disease with depression (6) Dementia in Alzheimer's disease with delusions (7) Dementia of the Alzheimer's type with early onset with behavioral disturbance (8) Major neurocognitive disorder JENNY CHEUNG MD Mar 10, 2021 21:07
--- NOTE | 2021-03-11 01:09 | NUR ---
Nursing Note Pt in bed in room, takes po meds well, left leg edematous and red. Skin is taght to the touch. 2-3 plus pitting edema. Pleasant and cooperative with meds and assessments.
[2021-03-11 06:09] VITALS: BP 172/88
--- NOTE | 2021-03-11 06:56 | PDOC ---
Exam Note: Carmelo Note: This note is a late entry for 03/10/2021 covers elements not covered in my initial note. Subjective: The patient was reviewed at treatment team meeting individually in the morning on 03/10/2021 with Kaylyn Marsh, Concha Doan, and Priya Gay (social welfare administrator), Kajal Mckeon (Driver Service Technician), [place], activity therapy, and Joseluis BARRY, discussed and reviewed the chart. The patient slept 7- 3/4 hours previous night. Average sleep 6-1/2 hours. He remains confused. Appetite 80%. He is cooperative with cares. UA 80,000 enterococcus faecalis. Culture is being done. We will defer to Dr. Latham. I met with him in his room. Reportedly we reviewed his history at length. 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 One day brother found him naked on the floor at home. Patient was cooperative, unmanageable and that is when he was placed in a residential. His memory has worsened significantly. However as I met with him today at length he was able to tell me he owned about 10 rental apartments. He was getting an average of $900 a month for each but he was unable to calculate what he had had left with him if the expenses were #1100 a month. He is probably not doing a very good job of keeping his accounts at home due to his memory deficits. He had flu vaccine on 03/04/2021. At times he was yelling. Oral intake is poor, refusing meds at times. Review of Systems: Ambulation impaired, in wheelchair. No CV, , pulmonary, eye, ENT system symptoms on review. Reliability poor. Mental Status Exam: The patient is oriented to himself and situation. Speech moderate latency, coherent, low in volume. Abstraction fair. Computation impaired. Language function intact. Mood and affect withdrawn. Laboratory Data: Reviewed. Impression: Major neurocognitive disorder, Alzheimer, vascular with delusion, depression, behavioral disturbance. Anxiety disorder unspecified. Impulse control disorder unspecified. Plan: Continue current psychotropics, Zyprexa p.r.n., trazodone and Ativan p.r.n. Gradually increase Zoloft. Add Seroquel as needed for psychosis and anxiety. Make adjustments as clinically indicated. Assessment: Vital Signs/I&O: Vital Signs Date Time Temp Pulse Resp B/P (MAP) Pulse Ox O2 Delivery O2 Flow Rate FiO2 03/11/21 06:09 97.9 73 16 172/88 (116) 92 Room Air I & O 03/10/21 03/10/21 03/11/21 15:00 23:00 07:00 Intake Total 540 ml 560 ml 120 ml Balance 540 ml 560 ml 120 ml Current Medications: Meds: Current Medications Medications (Trade) Dose Ordered Sig/Joseline Route PRN Reason Start Time Stop Time Status Last Admin Dose Admin Acetaminophen (Tylenol) 650 mg PRN Q6HRS PRN PO MILD PAIN / TEMP > 100.3'F 03/07/21 11:45 Multi-Ingredient Ointment (Analgesic [place]) 1 rivka PRN QID PRN TP MUSCLE PAIN 03/07/21 11:45 Al Hydroxide/Mg Hydroxide (Mylanta Plus Xs) 15 ml PRN AFTMEALHC PRN PO DYSPEPSIA 03/07/21 11:45 Magnesium Hydroxide (Milk Of Magnesia) 2,400 mg PRN QHS PRN PO CONSTIPATION 03/07/21 11:45 Trazodone HCl (Desyrel) 50 mg PRN QHS PRN PO INSOMNIA, MAY REPEAT X2 03/07/21 19:45 03/08/21 20:50 Olanzapine (ZyPREXA ZYDIS) 2.5 mg PRN Q2HRS PRN PO PSYCHOSIS 03/07/21 19:45 03/07/21 20:00 Lorazepam (Ativan) 0.5 mg PRN Q2HR PRN PO ANXIETY / AGITATION 03/07/21 21:15 03/07/21 21:18 Nystatin (Nystop) 1 rivka BID TP 03/08/21 21:00 03/10/21 20:53 Cyanocobalamin (Vitamin B-12) 1,000 mcg DAILY08 PO 03/09/21 08:00 03/10/21 09:24 Docusate Sodium (Colace) 100 mg PRN DAILY PRN PO 2ND CHOICE CONSTIPATION 03/08/21 14:00 Polyethylene Glycol (miraLAX) 17 gm PRN DAILY PRN PO FIRST CHOICE CONSTIPATION 03/08/21 14:00 Sertraline HCl (Zoloft) 25 mg DAILY PO 03/09/21 09:00 03/11/21 21:00 03/10/21 09:24 Sertraline HCl (Zoloft) 50 mg DAILY PO 03/12/21 09:00 Enoxaparin Sodium (Lovenox 80mg Syringe) 70 mg Q12HR SQ 03/09/21 21:00 03/10/21 17:44 DC 03/10/21 09:25 Amoxicillin (Amoxil) 500 mg TID PO 03/10/21 21:00 03/17/21 16:00 03/10/21 20:52 Current Medications Medications (Trade) Dose Ordered Sig/Joseline Route PRN Reason Start Time Stop Time Status Last Admin Dose Admin Amoxicillin (Amoxil) 500 mg TID PO 03/10/21 21:00 03/17/21 16:00 03/10/21 20:52 I have reviewed the current psychotropics carefully including drug interactions. Risk benefit ratio favors no change other than as noted in my dictated progress note. Diagnosis: Problems: (1) Impulse control disorder, unspecified (2) Anxiety disorder, unspecified (3) Dementia, vascular, with depression (4) Dementia, vascular, with delusions (5) Dementia in Alzheimer's disease with depression (6) Dementia in Alzheimer's disease with delusions (7) Dementia of the Alzheimer's type with early onset with behavioral disturban ce (8) Major neurocognitive disorder JENNY CHEUNG MD Mar 11, 2021 06:56
[2021-03-11] MEDS: CYANOCOBALAMIN (VITAMIN B-12) 1,000 MCG TABLET. PO SCH (08:46)
[2021-03-11] MEDS: SERTRALINE 25 MG TABLET. PO SCH (08:46)
[2021-03-11] MEDS: AMOXICILLIN 250 MG CAPSULE PO SCH ×3 (08:46→20:07)
[2021-03-11] MEDS: NYSTATIN TOPICAL POWDER 15GM BOTTLE. TP SCH ×2 (08:46→20:07)
--- NOTE | 2021-03-11 10:31 | NUR ---
Nursing Note Pt up to chair with help calm and cooperative med compliant. No agitation, social with peers. Denies complaints.
[2021-03-11 15:27] VITALS: BP 147/83
[2021-03-11] MEDS: LACTOBACILLUS RHAMNOSUS GG 1 CAPSULE. PO SCH (20:09)
--- NOTE | 2021-03-11 21:07 | PDOC ---
Exam Note: Carmelo Note: Please also refer to the separate dictated note~for this date of service dictated separately.~Patient seen individually. Discussed the patient with Nursing staff reviewed the chart.~Reviewed interim history and current functioning. Reviewed vital signs,~Labs/ Radiology~and current medications noted below. Continue current treatment with the changes noted in the dictated addendum note Assessment: Vital Signs/I&O: Vital Signs Date Time Temp Pulse Resp B/P (MAP) Pulse Ox O2 Delivery O2 Flow Rate FiO2 03/11/21 15:27 98.0 76 16 147/83 (104) 95 03/11/21 06:09 Room Air I & O 03/10/21 03/10/21 03/11/21 15:00 23:00 07:00 Intake Total 540 ml 560 ml 120 ml Balance 540 ml 560 ml 120 ml Current Medications: Meds: Current Medications Medications (Trade) Dose Ordered Sig/Joseline Route PRN Reason Start Time Stop Time Status Last Admin Dose Admin Acetaminophen (Tylenol) 650 mg PRN Q6HRS PRN PO MILD PAIN / TEMP > 100.3'F 03/07/21 11:45 Multi-Ingredient Ointment (Analgesic [place]) 1 rivka PRN QID PRN TP MUSCLE PAIN 03/07/21 11:45 Al Hydroxide/Mg Hydroxide (Mylanta Plus Xs) 15 ml PRN AFTMEALHC PRN PO DYSPEPSIA 03/07/21 11:45 Magnesium Hydroxide (Milk Of Magnesia) 2,400 mg PRN QHS PRN PO CONSTIPATION 03/07/21 11:45 Trazodone HCl (Desyrel) 50 mg PRN QHS PRN PO INSOMNIA, MAY REPEAT X2 03/07/21 19:45 03/08/21 20:50 Olanzapine (ZyPREXA ZYDIS) 2.5 mg PRN Q2HRS PRN PO PSYCHOSIS 03/07/21 19:45 03/07/21 20:00 Lorazepam (Ativan) 0.5 mg PRN Q2HR PRN PO ANXIETY / AGITATION 03/07/21 21:15 03/07/21 21:18 Nystatin (Nystop) 1 rivka BID TP 03/08/21 21:00 03/11/21 20:07 Cyanocobalamin (Vitamin B-12) 1,000 mcg DAILY08 PO 03/09/21 08:00 03/11/21 08:46 Docusate Sodium (Colace) 100 mg PRN DAILY PRN PO 2ND CHOICE CONSTIPATION 03/08/21 14:00 Polyethylene Glycol (miraLAX) 17 gm PRN DAILY PRN PO FIRST CHOICE CONSTIPATION 03/08/21 14:00 Sertraline HCl (Zoloft) 25 mg DAILY PO 03/09/21 09:00 03/11/21 21:00 DC 03/11/21 08:46 Sertraline HCl (Zoloft) 50 mg DAILY PO 03/12/21 09:00 Enoxaparin Sodium (Lovenox 80mg Syringe) 70 mg Q12HR SQ 03/09/21 21:00 03/10/21 17:44 DC 03/10/21 09:25 Amoxicillin (Amoxil) 500 mg TID PO 03/10/21 21:00 03/17/21 16:00 03/11/21 20:07 Lactobacillus Rhamnosus (Culturelle) 1 cap BID PO 03/11/21 21:00 03/11/21 20:09 Current Medications Medications (Trade) Dose Ordered Sig/Joseline Route PRN Reason Start Time Stop Time Status Last Admin Dose Admin Lactobacillus Rhamnosus (Culturelle) 1 cap BID PO 03/11/21 21:00 03/11/21 20:09 I have reviewed the current psychotropics carefully including drug interactions. Risk benefit ratio favors no change other than as noted in my dictated progress note. Diagnosis: Problems: (1) Impulse control disorder, unspecified (2) Anxiety disorder, unspecified (3) Dementia, vascular, with depression (4) Dementia, vascular, with delusions (5) Dementia in Alzheimer's disease with depression (6) Dementia in Alzheimer's disease with delusions (7) Dementia of the Alzheimer's type with early onset with behavioral disturbance (8) Major neurocognitive disorder EJNNY CHEUNG MD Mar 11, 2021 21:07
--- NOTE | 2021-03-12 00:51 | NUR ---
Patient required 2 person assist to transfer from wheelchair to bed. He was incontinent of bladder and was very cooperative with staff changing him. He has not been delusional, he doesn't know where he is but is not saying in group home. Tonight he has been cooperative and calm so far. Dr Hartley would like patient to have a head CT tomorrow as he has declined rapidly in the last month according to report from family. CT ordered.
[2021-03-12 06:01] VITALS: BP 172/91
--- NOTE | 2021-03-12 07:55 | PDOC ---
Exam Note: Carmelo Note: This note is a late entry for 03/11/2021 covers elements not covered in my initial note. Subjective: The patient was seen individually in the evening of 03/11/2021 with Marlee BARRY, discussed and reviewed the chart. The patient slept 6-3/4 hours previous night. Overall he has UTI. Started on Amoxil per Dr. Latham. 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 Review of Systems: Ambulation impaired, in wheelchair. No CV, , pulmonary, eye, ENT system symptoms on review. Mental Status Exam: The patient is oriented to himself and situation. Speech has some latency, coherent, low in volume. Abstraction fair. Computation impaired. Language function intact. Mood and affect somewhat withdrawn. Laboratory Data: Reviewed. Impression: Major neurocognitive disorder, Alzheimer, vascular with delusion, depression, behavioral disturbance. Anxiety disorder unspecified. Impulse control disorder unspecified. Plan: Once the UTI resolves, we will reassess his confusion and psychiatric symptoms. Make further adjustments as clinically indicated. Given his somewhat reasonable cognitive functioning a few months back and significant deterioration since then we will go ahead and check CT head as well to rule out any intracra nial lesion accounting for this. Assessment: Vital Signs/I&O: Vital Signs Date Time Temp Pulse Resp B/P (MAP) Pulse Ox O2 Delivery O2 Flow Rate FiO2 03/12/21 06:01 97.0 67 20 172/91 (118) 94 Room Air I & O 03/11/21 03/11/21 03/12/21 15:00 23:00 07:00 Intake Total 440 ml 240 ml Balance 440 ml 240 ml Current Medications: Meds: Current Medications Medications (Trade) Dose Ordered Sig/Joseline Route PRN Reason Start Time Stop Time Status Last Admin Dose Admin Acetaminophen (Tylenol) 650 mg PRN Q6HRS PRN PO MILD PAIN / TEMP > 100.3'F 03/07/21 11:45 Multi-Ingredient Ointment (Analgesic [place]) 1 rivka PRN QID PRN TP MUSCLE PAIN 03/07/21 11:45 Al Hydroxide/Mg Hydroxide (Mylanta Plus Xs) 15 ml PRN AFTMEALHC PRN PO DYSPEPSIA 03/07/21 11:45 Magnesium Hydroxide (Milk Of Magnesia) 2,400 mg PRN QHS PRN PO CONSTIPATION 03/07/21 11:45 Trazodone HCl (Desyrel) 50 mg PRN QHS PRN PO INSOMNIA, MAY REPEAT X2 03/07/21 19:45 03/08/21 20:50 Olanzapine (ZyPREXA ZYDIS) 2.5 mg PRN Q2HRS PRN PO PSYCHOSIS 03/07/21 19:45 03/07/21 20:00 Lorazepam (Ativan) 0.5 mg PRN Q2HR PRN PO ANXIETY / AGITATION 03/07/21 21:15 03/07/21 21:18 Nystatin (Nystop) 1 rivka BID TP 03/08/21 21:00 03/11/21 20:07 Cyanocobalamin (Vitamin B-12) 1,000 mcg DAILY08 PO 03/09/21 08:00 03/11/21 08:46 Docusate Sodium (Colace) 100 mg PRN DAILY PRN PO 2ND CHOICE CONSTIPATION 03/08/21 14:00 Polyethylene Glycol (miraLAX) 17 gm PRN DAILY PRN PO FIRST CHOICE CONSTIPATION 03/08/21 14:00 Sertraline HCl (Zoloft) 25 mg DAILY PO 03/09/21 09:00 03/11/21 21:00 DC 03/11/21 08:46 Sertraline HCl (Zoloft) 50 mg DAILY PO 03/12/21 09:00 Enoxaparin Sodium (Lovenox 80mg Syringe) 70 mg Q12HR SQ 03/09/21 21:00 03/10/21 17:44 DC 03/10/21 09:25 Amoxicillin (Amoxil) 500 mg TID PO 03/10/21 21:00 03/17/21 16:00 03/11/21 20:07 Lactobacillus Rhamnosus (Culturelle) 1 cap BID PO 03/11/21 21:00 03/11/21 20:09 Current Medications Medications (Trade) Dose Ordered Sig/Joseline Route PRN Reason Start Time Stop Time Status Last Admin Dose Admin Lactobacillus Rhamnosus (Culturelle) 1 cap BID PO 03/11/21 21:00 03/11/21 20:09 I have reviewed the current psychotropics carefully including drug interactions. Risk benefit ratio favors no change other than as noted in my dictated progress note. Diagnosis: Problems: (1) Impulse control disorder, unspecified (2) Anxiety disorder, unspecified (3) Dementia, vascular, with depression (4) Dementia, vascular, with delusions (5) Dementia in Alzheimer's disease with depression (6) Dementia in Alzheimer's disease with delusions (7) Dementia of the Alzheimer's type with early onset with behavioral disturbance (8) Major neurocognitive disorder JENNY CHEUNG MD Mar 12, 2021 07:55
[2021-03-12] MEDS: LACTOBACILLUS RHAMNOSUS GG 1 CAPSULE. PO SCH ×2 (08:31→20:03)
[2021-03-12] MEDS: AMOXICILLIN 250 MG CAPSULE PO SCH ×3 (08:31→20:03)
[2021-03-12] MEDS: CYANOCOBALAMIN (VITAMIN B-12) 1,000 MCG TABLET. PO SCH (08:31)
[2021-03-12] MEDS: NYSTATIN TOPICAL POWDER 15GM BOTTLE. TP SCH ×2 (08:31→21:00)
[2021-03-12] MEDS: SERTRALINE 50 MG TABLET. PO SCH (08:34)
--- NOTE | 2021-03-12 09:42 | RAD ---
EXAM: Head CT without contrast. HISTORY: Mental status changes. TECHNIQUE: Computed tomographic images of the head were obtained without contrast. *One or more of the following individualized dose reduction techniques were utilized for this examina tion: 1. Automated exposure control. 2. Adjustment of the mA and/or kV according to patient size. 3. Use of iterative reconstruction technique. COMPARISON: None. FINDINGS: There is no hemorrhage. There is no mass effect or midline shift. There is ventricular enla rgement due to cerebral volume loss. There is extensive decreased attenuation throughout the cerebral white matter, likely due to chronic small vessel disease. There is superimposed hypodensity within t he left greater than right occipital lobe possibly due to chronic infarction. There is paranasal sinu s mucosal thickening. The mastoid air cells are clear. There is no suspicious calvarial lesion. IMPRESSION: 1. Moderate ventricular enlargement. This appears to be within appropriate limits for the degree of c erebral volume loss. The ventricular size is not clearly greater than expected for cerebral volume to suggest hydrocephalus. 2. Bilateral cerebral white matter changes, likely due to chronic small vessel disease. 3. 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 Electronically signed by: Lilian Goldberg MD (03/12/2021 9:40 AM) [id number]
[2021-03-12 15:12] VITALS: BP 161/74
[2021-03-12] MEDS: CHOLECALCIFEROL (VITAMIN D3) 50,000 UNIT CAPSULE PO SCH (17:30)
--- NOTE | 2021-03-12 22:48 | PN ---
DATE: 03/12/2021 SUBJECTIVE: The patient was seen today, met with the staff. Chart was reviewed and also covering for Dr. Hartley. The patient continues to show improvement having recurrent UTI. The patient has been cooperative and pleasantly confused. OBSERVATION: VITAL SIGNS: Temperature 97, blood pressure 172/91, pulse 67, respirations 20, O2 sat 94%. GENERAL: Slept about 8 hours last night. The patient's appetite improved. CURRENT MEDICATIONS: Include Zoloft 50 mg daily, Ativan 0.5 mg q. 2 hours p.r.n., olanzapine 2.5 mg q. 2 hours p.r.n., trazodone 50 mg at night. LABORATORY DATA: The patient's lab reviewed. The patient's hemoglobin is 11.9. ASSESSMENT: Major neurocognitive disorder, most likely Alzheimer's, vascular with delusions and behavioral disturbances, generalized anxiety disorder. PLAN: To continue with the treatment. LENGTH OF STAY: Five to seven days. REJI DR: Anabelle TID: [id number]
[2021-03-12] MEDS: traZODone 50 MG TABLET. PO PRN (23:10)
--- NOTE | 2021-03-12 23:25 | NUR ---
Pt located in his bed this evening. Pt calm and pleasantly confused. Compliant with whole medications. Pt concerned about the "people in the hallway" worrying that they would have "nowhere to sleep." No agitation or aggression. PRN Trazodone administered later in the evening. Pt currently awake in bed.
[2021-03-13] MEDS: traZODone 50 MG TABLET. PO PRN ×2 (01:45→19:45)
--- NOTE | 2021-03-13 02:00 | NUR ---
Pt awake and restless all night. Attempted to administer repeat Trazodone and Zydis; however pt refused and became combative. PRN medications administered sublingually with staff x4. Pt extremely resistive and combative. Pt currently in bed yelling out and attempting to spit medications out. Will continue to monitor.
[2021-03-13 05:30] VITALS: BP 127/60
[2021-03-13] MEDS: NYSTATIN TOPICAL POWDER 15GM BOTTLE. TP SCH ×2 (08:54→19:43)
[2021-03-13] MEDS: CYANOCOBALAMIN (VITAMIN B-12) 1,000 MCG TABLET. PO SCH (08:54)
[2021-03-13] MEDS: AMOXICILLIN 250 MG CAPSULE PO SCH ×3 (08:54→19:43)
[2021-03-13] MEDS: LACTOBACILLUS RHAMNOSUS GG 1 CAPSULE. PO SCH ×2 (08:54→19:43)
[2021-03-13] MEDS: SERTRALINE 50 MG TABLET. PO SCH (08:54)
[2021-03-13 09:25] LABS: BASO % 1 % (0-3); EOS # 0.2 x10^3/uL (0.0-0.7); EOS % 4 % (0-3); HEMATOCRIT 34.7 % (39.0-53.0); HEMOGLOBIN 11.9 g/dL (13.0-17.5); LYMPH % 24 % (24-48); MEAN CORPUSCULAR HEMOGLOBIN 35 pg (25-35); MEAN CORPUSCULAR HGB CONC 34 g/dL (31-37); MEAN CORPUSCULAR VOLUME 103 fL (79-100); MONO # 0.5 x10^3/uL (0.0-1.1); MONO % 13 % (0-9); NEUT # 2.6 x10^3uL (1.8-7.7); NEUT % 59 % (31-73); PLATELET COUNT 250 x10^3/uL (140-400); RED BLOOD COUNT 3.36 x10^6/uL (4.30-5.70); RED CELL DISTRIBUTION WIDTH 13.1 % (11.5-14.5); WHITE BLOOD COUNT 4.4 x10^3/uL (4.0-11.0)
[2021-03-13 09:38] LABS: ALBUMIN/GLOBULIN RATIO 0.7 (1.0-1.7); CALCIUM 8.7 mg/dL (8.5-10.1); POTASSIUM 3.7 mmol/L (3.5-5.1); TOTAL BILIRUBIN 0.5 mg/dL (0.2-1.0); TOTAL PROTEIN 7.5 g/dL (6.4-8.2)
[2021-03-13] MEDS: LORazepam 0.5 MG TABLET PO PRN (14:26)
--- NOTE | 2021-03-13 15:34 | NUR ---
Nursing note: Patient is in hallway for morning medication & assessment. He was compliant with am medications, required encouragement with afternoon medications. He is alert and oriented to self & month. He propels self in w/c, requires a standby assist with transfers. Patient denies pain/discomfort. He is currently sitting in w/c in hallway. He was irritable & exit seeking in afternoon, PRN given per order. Will continue to monitor.
[2021-03-13 15:39] VITALS: BP 155/79
--- NOTE | 2021-03-13 21:15 | PN ---
DATE: 03/13/2021 SUBJECTIVE: The patient was seen today, met with the staff, chart reviewed and also covering for Dr. Hartley. OBSERVATION: VITAL SIGNS: Stable. GENERAL: The patient's sleep and appetite have improved. CURRENT MEDICATIONS: Include Zoloft 50 mg daily, Ativan 0.5 mg q. 2 hours p.r.n., olanzapine 2.5 mg q. 2 hours p.r.n., and trazodone 50 mg at night. LABORATORY DATA: The patient's lab reviewed. ASSESSMENT: 1. Major neurocognitive disorder, most likely Alzheimer's, vascular with delusion and behavioral disturbances. 2. Generalized anxiety disorder. PLAN: To continue with treatment. LENGTH OF STAY: Five to seven days. VIVIAN DR: Anabelle TID: [id number]
--- NOTE | 2021-03-13 23:57 | NUR ---
Pt located in the hallway this evening. Pt calm and pleasant. Compliant with shower and whole medications. Pt currently sleeping.
[2021-03-14 05:51] VITALS: BP 145/68
[2021-03-14] MEDS: CYANOCOBALAMIN (VITAMIN B-12) 1,000 MCG TABLET. PO SCH (08:41)
[2021-03-14] MEDS: NYSTATIN TOPICAL POWDER 15GM BOTTLE. TP SCH ×2 (08:41→20:17)
[2021-03-14] MEDS: AMOXICILLIN 250 MG CAPSULE PO SCH ×3 (08:41→20:17)
[2021-03-14] MEDS: SERTRALINE 50 MG TABLET. PO SCH (08:41)
[2021-03-14] MEDS: LACTOBACILLUS RHAMNOSUS GG 1 CAPSULE. PO SCH ×2 (08:41→20:17)
--- NOTE | 2021-03-14 13:35 | NUR ---
SW completed concurrent review and was granted an additional 3 days; approval from 12/12-12/15. SW will have to complete the concurrent review for pt or plan discharge if he does not meet criteria for continued stay at that time. Authorization number: [id number]
--- NOTE | 2021-03-14 14:21 | NUR ---
Nursing note: Patient is in hallway for morning medication & assessment. He was compliant with am medications taken whole. He is alert and oriented to self, situation & name of town. He was unable to report facility name & date. He propels self in w/c, requires a standby assist with transfers. Patient denies pain/discomfort. He is currently in day room participating in group. Will continue to monitor.
[2021-03-14 15:33] VITALS: BP 152/82
[2021-03-14] MEDS: traZODone 50 MG TABLET. PO PRN (20:18)
--- NOTE | 2021-03-14 22:31 | NUR ---
Pt located in the hallway this evening rolling himself around in his wheelchair. Pt very pleasant, calm and interactive. Compliant with whole medications. No agitation or aggression. Pt currently sleeping in bed.
--- NOTE | 2021-03-15 00:47 | PN ---
DATE: 03/14/2021 SUBJECTIVE: The patient was seen today, met with the staff, chart was reviewed, and also covering for Dr. Hartley. Staff reports no major behavior problems. The patient is planned for discharge in the next couple of days. OBSERVATION: VITAL SIGNS: Temperature 97.7, blood pressure 145/68, pulse 70, respirations 16, O2 sat 93%. GENERAL: Slept about 8 hours last night. The patient's appetite improved. LABORATORY DATA: The patient's lab reviewed. CURRENT MEDICATIONS: The patient's current medications include Zoloft 50 mg daily, Ativan 0.5 mg q. 2 hours p.r.n., olanzapine 2.5 mg q. 2 hours p.r.n., and trazodone 50 mg at night. ASSESSMENT: 1. Major neurocognitive disorder, most likely Alzheimer's, vascular with delusion and behavioral disturbances. 2. Generalized anxiety disorder. PLAN: To continue with the treatment. LENGTH OF STAY: 2 days. The patient is planned for discharge in next few days. ESTRELLITA DR: Anabelle TID: [id number]
[2021-03-15] MEDS: traZODone 50 MG TABLET. PO PRN (01:20)
--- NOTE | 2021-03-15 01:21 | NUR ---
Pt is awake and delusional. Pt agitated, stating that he needs to get up and get to work. Pt stated that he works at [employer] doing "miscellaneous things." Redirection unsuccessful as pt just became angrier. Pt refused PO PRNs. Trazodone and Zydis administered sublingually with staff x4 as pt was combative with medication administration. Pt currently awake in bed. Will continue to monitor.
[2021-03-15 05:37] VITALS: BP 159/71
[2021-03-15] MEDS: SERTRALINE 50 MG TABLET. PO SCH (08:39)
[2021-03-15] MEDS: CYANOCOBALAMIN (VITAMIN B-12) 1,000 MCG TABLET. PO SCH (08:39)
[2021-03-15] MEDS: AMOXICILLIN 250 MG CAPSULE PO SCH ×3 (08:39→19:48)
[2021-03-15] MEDS: LACTOBACILLUS RHAMNOSUS GG 1 CAPSULE. PO SCH ×2 (08:39→19:48)
[2021-03-15] MEDS: NYSTATIN TOPICAL POWDER 15GM BOTTLE. TP SCH ×2 (09:00→19:48)
[2021-03-15 15:05] VITALS: BP 148/71
--- NOTE | 2021-03-15 22:47 | NUR ---
Nursing Note Pt in bed right after shift change, compliant with meds, and assessment. No behaviors this pm took a shower.
--- NOTE | 2021-03-16 00:06 | PN ---
DATE: 03/15/2021 SUBJECTIVE: The patient was seen today, met with the staff, chart reviewed. Staff reports continued improvement, still confused, did not present with any major behavior problems today. The patient was able to hold a reasonable conversation, but has significant cognitive deficits. OBJECTIVE: VITAL SIGNS: Temperature 97.6, blood pressure 159/71, pulse 66, respirations 18, O2 sat 94%. GENERAL: Slept about 6 hours last night. The patient's appetite is fair. CURRENT MEDICATIONS: Include Zoloft 50 mg daily, Ativan 0.5 mg q. 2 hours p.r.n., olanzapine 2.5 mg q. 2 hours p.r.n., and trazodone 50 mg at night. The patient is not having any side effects. LABORATORY DATA: The patient's lab reviewed. ASSESSMENT: 1. 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 2. Generalized anxiety disorder. PLAN: To continue with treatment. LENGTH OF STAY: 2 days. CHAPITO/MIHAELA DR: Anabelle TID: [id number]
[2021-03-16 06:02] VITALS: BP 170/74
[2021-03-16] MEDS: CYANOCOBALAMIN (VITAMIN B-12) 1,000 MCG TABLET. PO SCH (08:40)
[2021-03-16] MEDS: LACTOBACILLUS RHAMNOSUS GG 1 CAPSULE. PO SCH ×2 (08:40→20:48)
[2021-03-16] MEDS: SERTRALINE 50 MG TABLET. PO SCH (08:40)
[2021-03-16] MEDS: AMOXICILLIN 250 MG CAPSULE PO SCH ×3 (08:41→20:48)
[2021-03-16] MEDS: NYSTATIN TOPICAL POWDER 15GM BOTTLE. TP SCH ×2 (09:00→20:48)
--- NOTE | 2021-03-16 13:40 | NUR ---
Patient is increasingly agitated and exit seeking. He is delusional and believes his family is trying to steal his money and wants to get home to stop them. PRN medication provided per eMAR, will report to MD during rounds.
[2021-03-16 15:31] VITALS: BP 136/69
--- NOTE | 2021-03-17 01:05 | NUR ---
Nursing Note The patient was located in his room laying in bed for his assessment and medication pass. The patient was alert to name only. the patient was pleasant during interactions and took his medication whole. THe patient is currently sleeping in his room.
--- NOTE | 2021-03-17 01:16 | PN ---
DATE: 03/16/2021 SUBJECTIVE: The patient was seen today, met with the staff, chart reviewed, and also covering for Dr. Hartley. Staff reports no major problems today. He is much calmer, cooperative with the care. Still has periods of agitation and exit-seeking behaviors. The patient also concerned that his family is taking advantage of him financially. OBSERVATION: VITAL SIGNS: Temperature 97.6, blood pressure 170/74, pulse 71, respirations 17, O2 sat 92%. GENERAL: Slept about 9 hours last night. LABORATORY DATA: The patient's lab reviewed, within normal range. CURRENT MEDICATIONS: Include Zoloft 50 mg daily, Ativan 0.5 mg q. 2 hours p.r.n., olanzapine 2.5 mg q. 2 hours p.r.n., and trazodone 50 mg at night. The patient is not having any side effects to medications. The patient had no falls. ASSESSMENT: 1. 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 2. Generalized anxiety disorder. PLAN: To continue with treatment. LENGTH OF STAY: Two to three days. KENDALL DR: Anabelle TID: [id number]
[2021-03-17 05:28] VITALS: BP 158/76
[2021-03-17] MEDS: AMOXICILLIN 250 MG CAPSULE PO SCH ×2 (08:18→14:01)
[2021-03-17] MEDS: SERTRALINE 50 MG TABLET. PO SCH (08:18)
[2021-03-17] MEDS: LACTOBACILLUS RHAMNOSUS GG 1 CAPSULE. PO SCH ×2 (08:18→20:23)
[2021-03-17] MEDS: CYANOCOBALAMIN (VITAMIN B-12) 1,000 MCG TABLET. PO SCH (08:18)
[2021-03-17] MEDS: NYSTATIN TOPICAL POWDER 15GM BOTTLE. TP SCH ×2 (09:00→21:00)
--- NOTE | 2021-03-17 12:23 | NUR ---
WEEKLY ACTIVITY THERAPY NOTE Date of Admission:03/07/21 Date of AT Assessment: 03/10 Precipitating behaviors that initiated intake and admission:Refused to elevate legs, thinks he's in [facility], refusing skin assessments, wants to take clothes off, argumentative, yelling at people, refusing to eat, refusing meds, delusional, family abandoned him, very angry, calls staff spawn [employer] the devil, paranoid Goal aimed: increase socialization and engagement Initial Goal:Pt will participate in at least three Activity Therapy session per week Weekly progress towards goal: achieved, 06/26 Group participation level: 2 min, 2 full Weekly highlights: contributed to group discussion by talking about his fears and comfort zones Sunday, contributed thoughts during leisure and emotions group Sunday Behaviors observed: pleasant, calm and sociable Plan: no change to goal Beneficial adaptations: socialization and engagement
--- NOTE | 2021-03-17 12:58 | NUR ---
Treatment team update: Pt is eating roughly 75% of meals and sleeping on average of 7.25 hours per night. Pt had a better night and was more redirected. Pt was up around 0300 and was told that it was in the middle of the night and not time to go to work. Pt settled back into bed and was able to go to sleep. Pt is cooperative with [facility] and has attended four groups with moderate participation. Pt at this time will look at discharging back to his placement on Sunday. Pt will plan to return back to [facility] on Sunday; SW to make those arrangements.
--- NOTE | 2021-03-17 14:19 | NUR ---
ANDRE returned call to Jon, pt brother/DPOA, and gave him an update on pt care. Yeison and ANDRE discussed the possibility of pt discharging on Sunday as long as his behavior continues to decrease in nature, we will look at discharge on Sunday. ANDRE will plan to follow up on Sunday to finalize those plans. Jon did ask to bring up pt treviño and ANDRE explained that they would have to sit in the nurses station and not his room; Jon was okay with this. ANDRE also discussed the fact that his sister called wanting information but because she is not DPOA, we were not giving anything unless he was fine with that information. Jon agreed that pt sister could receive information. She lives in [place] and he states she has some memory issues herself. ANDRE and Jon will follow up on Sunday.
--- NOTE | 2021-03-17 14:36 | NUR ---
SW attempted to contact pt sister, Angela and left a message asking for her to contact SW when possible re: an update on pt.
[2021-03-17] MEDS: LORazepam 0.5 MG TABLET PO PRN (15:38)
--- NOTE | 2021-03-17 15:40 | NUR ---
Patient is becoming increasingly agitated and exit seeking. He is delusional and believes he has to get home to [place]. He is resistive to verbal redirection. PRN medication provided per eMAR, will report to MD during rounds.
[2021-03-17 15:42] VITALS: BP 152/74
--- NOTE | 2021-03-17 22:55 | NUR ---
Nursing Note The patient was located in his room sleeping in bed when approached this shift. The patient was unable to talk in depth with this nurse due to drowsiness. The patient did respond to name. The patient is currently sleeping in his room.
--- NOTE | 2021-03-18 02:22 | PN ---
DATE: 03/17/2021 SUBJECTIVE: The patient was seen today, met with the staff. Chart was reviewed and also covering for Dr. Hartley. Staff reports no major behavior problems. He has been isolating himself in his room and episodes of confusion. OBSERVATION: VITAL SIGNS: Stable. The patient ate about 30% of his meals. GENERAL: Slept about 7 hours. The patient continues to have episodes of confusion and also exit-seeking behaviors. CURRENT MEDICATIONS: Include Zoloft 50 mg daily, Ativan 0.5 mg q. 2 hours p.r.n., olanzapine 2.5 mg q. 2 hours p.r.n., and trazodone 50 mg at night. He denies of any side effects to medications. LABORATORY DATA: The patient's lab reviewed. ASSESSMENT: 1. 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 2. Generalized anxiety disorder. PLAN: To continue with the treatment. LENGTH OF STAY: Two to three days. JEN DR: Anabelle TID: [id number]
[2021-03-18 05:48] VITALS: BP 157/72
[2021-03-18] MEDS: SERTRALINE 50 MG TABLET. PO SCH (08:32)
[2021-03-18] MEDS: LACTOBACILLUS RHAMNOSUS GG 1 CAPSULE. PO SCH ×2 (08:32→20:03)
[2021-03-18] MEDS: CYANOCOBALAMIN (VITAMIN B-12) 1,000 MCG TABLET. PO SCH (08:32)
[2021-03-18] MEDS: NYSTATIN TOPICAL POWDER 15GM BOTTLE. TP SCH ×2 (08:57→21:00)
--- NOTE | 2021-03-18 13:16 | PN ---
DATE: 03/18/2021 SUBJECTIVE: The patient was seen today, met with the staff, chart reviewed, also covering for Dr. Hartley. The patient's behavior remains the same. The patient is still concerned about his inability to control his bladder. Staff reports no major behavior problems except he continues to have cognitive deficits and dependent on staff for ADLs. The patient is currently on wheelchair, not able to ambulate. The patient did not have any falls. OBSERVATION: VITAL SIGNS: Temperature 98.1, blood pressure 157/72, pulse 62, respirations 22, O2 sat 92%. GENERAL: Slept about 7 hours last night. The patient's appetite is fair. The patient is not having any other physical complaints. CURRENT MEDICATIONS: Include Zoloft 50 mg daily, Ativan 0.5 mg q. 2 hours p.r.n., olanzapine 2.5 mg q. 2 hours p.r.n. and trazodone 50 mg at night. The patient denies of any side effects to medications. LABORATORY DATA: Reviewed. ASSESSMENT: 1. 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 2. Generalized anxiety disorder. PLAN: To continue treatment. LENGTH OF STAY: The patient is planned for discharge next week. CHAPITO/ASHUTOSH/KARY DR: CHAPITO/steph TID: [id number]
--- NOTE | 2021-03-18 14:42 | NUR ---
Nursing note: Patient is in dinning room for morning medication & assessment. He was compliant with medications taken whole. He is A/O X3, unable to report current month. This am he was agitated about wanting to leave. Once this nurse explained he was here for memory care and would not be discharged today he became calm. He propels self in w/c, requires a standby assist with transfers. Patient denies pain/discomfort. He is currently resting in bed with eyes closed. Will continue to monitor.
[2021-03-18 15:38] VITALS: BP 169/69
--- NOTE | 2021-03-18 22:53 | NUR ---
Nursing Note The patient was located in his room for his assessment and medication pass. The patient was compliant with medication and took it whole. The patient was alert to self and year. The patient was pleasant during interactions with this nurse. The patient is currently sleeping in his room.
[2021-03-19 05:48] VITALS: BP 164/76
[2021-03-19] MEDS: CHOLECALCIFEROL (VITAMIN D3) 50,000 UNIT CAPSULE PO SCH (08:33)
[2021-03-19] MEDS: CYANOCOBALAMIN (VITAMIN B-12) 1,000 MCG TABLET. PO SCH (08:33)
[2021-03-19] MEDS: LACTOBACILLUS RHAMNOSUS GG 1 CAPSULE. PO SCH ×2 (08:33→20:08)
[2021-03-19] MEDS: SERTRALINE 50 MG TABLET. PO SCH (08:33)
[2021-03-19] MEDS: NYSTATIN TOPICAL POWDER 15GM BOTTLE. TP SCH ×2 (09:00→20:08)
[2021-03-19 15:39] VITALS: BP 136/77
--- NOTE | 2021-03-19 16:04 | NUR ---
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 He became upset when told that he would probably return to [facility], stating that he cannot manage his properties from there. Informed patient that I would tell his SW that he wants to talk to her. Message left for SW, will continue to monitor and report to oncoming shift.
--- NOTE | 2021-03-19 21:20 | PN ---
DATE: 03/19/2021 SUBJECTIVE: The patient was seen today, met with the staff. Chart reviewed and also covering for Dr. Hartley. The patient's behavior has improved. Staff reports no major behavioral problems, no major physical complaint. The patient apparently has swelling and redness of the left leg secondary to cellulitis. The patient's occasional behavior problems, mostly exit-seeking behaviors. The patient is cooperative with the care and is medication compliant. OBSERVATION: Vital signs within normal limits. CURRENT MEDICATIONS: Include Zoloft 50 mg daily, Ativan 0.5 mg q. 2 hours p.r.n., olanzapine 2.5 mg q. 2 hours p.r.n., and trazodone 50 mg at night. The patient denies of having any side effects to medications. ASSESSMENT: 1. 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 2. Generalized anxiety disorder. PLAN: To continue with treatment. LENGTH OF STAY: Provisionally scheduled for next week. HAYDEE DR: Anabelle TID: [id number]
--- NOTE | 2021-03-19 23:14 | NUR ---
Pt located in his room this evening. Pt calm and cooperative. A/O to name, and year. States that he had a good phone conversation today with his sister and brother in law. Compliant with whole medications. Pt currently sleeping.
[2021-03-19] MEDS: traZODone 50 MG TABLET. PO PRN (23:51)
[2021-03-20 05:44] VITALS: BP 165/77
[2021-03-20] MEDS: NYSTATIN TOPICAL POWDER 15GM BOTTLE. TP SCH ×2 (07:25→20:04)
[2021-03-20] MEDS: CYANOCOBALAMIN (VITAMIN B-12) 1,000 MCG TABLET. PO SCH (07:25)
[2021-03-20] MEDS: LACTOBACILLUS RHAMNOSUS GG 1 CAPSULE. PO SCH ×2 (07:25→19:59)
[2021-03-20] MEDS: SERTRALINE 50 MG TABLET. PO SCH (07:25)
[2021-03-20 11:16] LABS: BASO % 1 % (0-3); EOS # 0.1 x10^3/uL (0.0-0.7); EOS % 2 % (0-3); HEMATOCRIT 34.3 % (39.0-53.0); HEMOGLOBIN 11.7 g/dL (13.0-17.5); LYMPH % 17 % (24-48); MEAN CORPUSCULAR HEMOGLOBIN 36 pg (25-35); MEAN CORPUSCULAR HGB CONC 34 g/dL (31-37); MEAN CORPUSCULAR VOLUME 105 fL (79-100); MONO # 0.5 x10^3/uL (0.0-1.1); MONO % 9 % (0-9); NEUT # 4.1 x10^3uL (1.8-7.7); NEUT % 71 % (31-73); PLATELET COUNT 248 x10^3/uL (140-400); RED BLOOD COUNT 3.27 x10^6/uL (4.30-5.70); RED CELL DISTRIBUTION WIDTH 13.5 % (11.5-14.5); WHITE BLOOD COUNT 5.8 x10^3/uL (4.0-11.0)
[2021-03-20 11:29] LABS: ALBUMIN 3.1 g/dL (3.4-5.0); ALBUMIN/GLOBULIN RATIO 0.7 (1.0-1.7); CALCIUM 8.5 mg/dL (8.5-10.1); CREATININE 1.1 mg/dL (0.7-1.3); GFR 63.6; TOTAL BILIRUBIN 0.4 mg/dL (0.2-1.0); TOTAL PROTEIN 7.5 g/dL (6.4-8.2)
--- NOTE | 2021-03-20 15:14 | NUR ---
Patient spending time in room except for meals. Some limited amount of time in the day garcia with peers. Asking to be discharged. Able to recall my name from beginning of conversation to point of exiting. Could not remember the name of the hospital but knew he was in [place], [place]. Appropriate and cooperative. Taking medications without complaint or difficulty. LLE picture performed for cellulitis. Circulation is WNL with pink patches but no recognizable immediate ulceration or other open skin integrity risks. Reports depression level to be a 3 on the 10 scale.
[2021-03-20 15:54] VITALS: BP 143/63
[2021-03-20] MEDS: traZODone 50 MG TABLET. PO PRN ×2 (19:59→21:52)
--- NOTE | 2021-03-20 23:01 | NUR ---
Pt started this evening calm and pleasant. Compliant with whole medications. [place] around unit in wheelchair. Once placed in bed, pt became angry and delusional. Pt yelling that he needs to get up, repeatedly setting off bed alarm. Pt stating that his son is stealing a million dollars from him and he needs to stop it. Redirection unsuccessful w pt as pt became angrier. PRN Zydis and repeat Trazodone administered sublingually with staff x3. Pt extremely combative and spitting at staff. Pt continued to yell, repeatedly setting off alarm. Pt currently awake in bed.
--- NOTE | 2021-03-21 04:48 | PN ---
DATE: 03/20/2021 SUBJECTIVE: The patient was seen today, met with the staff, chart reviewed and also covering for Dr. Hartley. Staff reports no major behavior problems. The patient is still withdrawn, isolative, currently on wheelchair. No falls. OBSERVATION: VITAL SIGNS: Temperature 98.0, blood pressure 165/97, pulse 70, respirations 18, O2 sat 93%. GENERAL: Slept about 7 hours last night. LABORATORY DATA: The patient's lab reviewed. CURRENT MEDICATIONS: Include Zoloft 50 mg daily, Ativan 0.5 mg q. 2 hours p.r.n., olanzapine 2.5 mg q. 2 hours p.r.n., and trazodone 50 mg at night. The patient is not having any side effects to the medications. The patient continues to have periods of confusion and also complains of pain in his left leg, apparently has cellulitis. ASSESSMENT: 1. 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 2. Generalized anxiety disorder. PLAN: To continue with the treatment. LENGTH OF STAY: Plan for discharge next week. CHAPITO/FENG/KARY DR: Anabelle TID: [id number]
[2021-03-21 05:27] VITALS: BP 148/69
[2021-03-21] MEDS: LACTOBACILLUS RHAMNOSUS GG 1 CAPSULE. PO SCH ×2 (08:05→20:07)
[2021-03-21] MEDS: SERTRALINE 50 MG TABLET. PO SCH (08:05)
[2021-03-21] MEDS: CYANOCOBALAMIN (VITAMIN B-12) 1,000 MCG TABLET. PO SCH (08:05)
[2021-03-21] MEDS: NYSTATIN TOPICAL POWDER 15GM BOTTLE. TP SCH ×2 (09:00→20:08)
--- NOTE | 2021-03-21 12:08 | PN ---
DATE: 03/21/2021 SUBJECTIVE: The patient was seen today, met with the staff, chart reviewed. Also, covering for Dr. Hartley. Staff reports some improvement with his behavior. Still delusional at times, gets agitated easily. The patient did not have any falls. OBSERVATION: VITAL SIGNS: Temperature 97.5, blood pressure 148/69, pulse 65, respirations 16, O2 sat 93%. GENERAL: Slept about 6 hours last night. The patient's appetite is improved. The patient continues to have problems with incontinence of urine. LABORATORY DATA: The patient's lab reviewed. ASSESSMENT: Major neurocognitive disorder, most likely Alzheimer's versus vascular with delusions and behavioral disturbances, generalized anxiety disorder. PLAN: To continue with the treatment. LENGTH OF STAY: Five days. Awaiting for placement. JASVIR DR: Anabelle TID: [id number]
--- NOTE | 2021-03-21 14:14 | NUR ---
ANDRE completed the [facility] concurrent review on Ni's voicemail. ANDRE requested until as pt continues to have trouble in the middle of the night and will assess with the psychiatrist the need for an additional HS medication. ANDRE to await the results of the concurrent review and make discharge plans accordingly.
[2021-03-21] MEDS ORDERED: ACET325T21 PO (14:22)
[2021-03-21] MEDS ORDERED: CHOL500021 PO (14:23)
[2021-03-21] MEDS ORDERED: LACT1CAP21 PO (14:30)
[2021-03-21] MEDS ORDERED: LORA0.5T21 PO (14:32)
[2021-03-21] MEDS ORDERED: MAG30ORA2 PO (14:34)
[2021-03-21] MEDS ORDERED: MAGN24003 PO (14:35)
[2021-03-21] MEDS ORDERED: METH85CR TP (14:36)
[2021-03-21] MEDS ORDERED: NYST15PO9 TP (14:37)
[2021-03-21] MEDS ORDERED: OLAN5TAB7 PO (14:38)
[2021-03-21] MEDS ORDERED: SERT50TA PO (14:40)
[2021-03-21] MEDS ORDERED: TRAZ-120 PO (14:41)
--- NOTE | 2021-03-21 15:09 | NUR ---
ANDRE contacted Ceasar in admissions to give her an update on pt behaviors and did note that pt is more delusional during times that he wakes up in the middle of the night. During the day pt is more alert and oriented and able to be redirected; however, when redirected at night he tends to be more combative and needs the PRN's. ANDRE will send over updated notes and get back to Ceasar re: the insurance decision for discharge.
--- NOTE | 2021-03-21 15:32 | NUR ---
ANDRE contacted pt brother/DPOA, Yeison, and updated him on pt behaviors. ANDRE explained that SW completed the insurance review and noted that he continues to have aggressive behaviors at night; especially when he wakes up disoriented and delusional. He was combative and spit at nursing staff who had to administer PRNs sublingually. Once ANDRE hears back from the insurance company, ANDRE will be able to let Yeison further know the plan. ANDRE expressed concern with the noted behaviors as to whether or not pt placement will be able to manage pt upon his return.
[2021-03-21 15:35] VITALS: BP 152/76
[2021-03-21] MEDS ORDERED: MIRT-37 PO (16:01)
--- NOTE | 2021-03-21 17:30 | NUR ---
Patient has been calm, cooperative, disorganized, and mildly confused throughout this shift. He has been preoccupied with leaving and responds to verbal redirection. 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 Patient was interactive with peers and staff, and participated in group. Will continue to monitor and report to oncoming shift.
[2021-03-21] MEDS: MIRTAZAPINE 15 MG TABLET PO SCH (20:09)
--- NOTE | 2021-03-21 23:39 | NUR ---
Pt located in his room laying in bed. Pt pleasant and calm. Compliant with whole medications. No delusions noted this evening.
[2021-03-22 05:58] VITALS: BP 117/50
[2021-03-22] MEDS: NYSTATIN TOPICAL POWDER 15GM BOTTLE. TP SCH (10:30)
[2021-03-22] MEDS: CYANOCOBALAMIN (VITAMIN B-12) 1,000 MCG TABLET. PO SCH (10:31)
[2021-03-22] MEDS: LACTOBACILLUS RHAMNOSUS GG 1 CAPSULE. PO SCH ×2 (10:31→20:55)
[2021-03-22] MEDS: SERTRALINE 50 MG TABLET. PO SCH (10:31)
[2021-03-22] MEDS ORDERED: NYSTATIN TOPICAL POWDER 15GM BOTTLE. TP PRN (13:00)
[2021-03-22 16:09] VITALS: BP 112/55
--- NOTE | 2021-03-22 17:36 | NUR ---
Patient has been calm, cooperative, disorganized, and mildly confused throughout this shift. He slept in late in the morning and took a nap after lunch, he was generally withdrawn to his room today. Will continue to monitor and report to oncoming shift.
[2021-03-22] MEDS: MIRTAZAPINE 15 MG TABLET PO SCH (20:55)
--- NOTE | 2021-03-23 02:11 | NUR ---
Nursing Note The patient was located in his room for his assessment and medication pass. The patient was compliant with medication and took it whole. The patient was alert to self only. The patient was pleasant during interactions with this nurse. The patient is currently sleeping in his room.
--- NOTE | 2021-03-23 03:00 | PN ---
DATE: 03/22/2021 SUBJECTIVE: The patient was seen today, met with the staff, chart was reviewed and also covering for Dr. Hartley. Staff reports increased confusion and having difficulty with sleep and since he has been on Remeron, he was able to sleep fairly well. OBSERVATION: VITAL SIGNS: Temperature 97.6, blood pressure 117/50, pulse 65, respirations 16, O2 sat 94%. Slept about 9 hours last night. The patient's appetite is fair. CURRENT MEDICATIONS: The patient's current medications include mirtazapine 15 mg at night, Zoloft 50 mg daily, lorazepam 0.5 mg q. 2 hours p.r.n. and olanzapine 2.5 mg q. 2 hours p.r.n. He is also on trazodone 50 mg at night p.r.n. for sleep. LABORATORY DATA: The patient's lab reviewed. ASSESSMENT: 1. 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 2. Generalized anxiety disorder. PLAN: To continue with treatment. LENGTH OF STAY: Five days. Awaiting for placement. JEN DR: Anabelle TID: [id number]
[2021-03-23 06:00] VITALS: BP 124/64
[2021-03-23] MEDS: SERTRALINE 50 MG TABLET. PO SCH (08:22)
[2021-03-23] MEDS: CYANOCOBALAMIN (VITAMIN B-12) 1,000 MCG TABLET. PO SCH (08:22)
[2021-03-23] MEDS: LACTOBACILLUS RHAMNOSUS GG 1 CAPSULE. PO SCH ×2 (08:22→20:31)
--- NOTE | 2021-03-23 12:14 | NUR ---
ANDRE received a call from JAYA Watson, who expressed concern that it was taking up to 3 staff to give pt medications. ANDRE noted that it was in the evening surrounding bedtime and it was not every night. On the nights he was more delusional and difficult to redirect, pt was needing assist with medications; however, that is not a nightly occurrence. Pt was started on Remeron to help in combating that issue. Walter reports that they cannot take pt back at this time until his "behaviors are more consistent". They do not have 3 staff to assist pt with medications or behaviors and therefore, see him as a safety concern. If pt can have more consistent behaviors noted, they can see about pt returning to them at that time. ANDRE noted with Walter that insurance will no longer cover; which is why discharge is being discussed. If they do not accept pt back that puts the family in a lurch, making them financially responsible until pt can discharge. Walter stated "I understand that and I can talk to Jon, but we just can't take him back. He is not stable enough whether insurance deems it so or not". ANDRE will also call and speak to Jon about this conversation and see if finding another facility that will be able to handle pt and his "behaviors".
--- NOTE | 2021-03-23 12:44 | NUR ---
ANDRE called Ni at [facility] re: pt insurance update and had to leave a message. ANDRE informed Ni that the system was currently down and wanted to postpone the review until a full one could be completed. ANDRE did leave in the message for Ni that pt placement does not feel they are able to accept pt back because they feel he is a safety risk and needs to have more "consistent" behaviors. Once the [employer] system is up and running, ANDRE would be able to update her further on pt behaviors.
--- NOTE | 2021-03-23 13:04 | NUR ---
ANDRE spoke with pt brother/Yeison PLATT to further discuss the conversation had with JAYA Watson at [facility] on their "inability" to take pt back due to inconsistent behaviors and safety concerns. Yeison is concerned that with the holiday finding new placement will not be possible, as well as the insurance denying pt stay. ANDRE and Yeison discussed financial situation in the event insurance denies and pt needs to stay due to not having a safe discharge plan at the moment. ANDRE will finalize the insurance review and get back to Yeison on their final decision for coverage.
--- NOTE | 2021-03-23 13:22 | NUR ---
ANDRE was able to complete concurrent review now that [employer] is running. SW was able to go over pt behaviors, starting Remeron and the facility report of being unable to accept pt back with his behaviors and need for him to be more consistent. In speaking to pt brother, he is open on looking for placement, but is concerned with KRISTEN on if placement can be found that fast. SW did request until at least Sunday to aid in finding placement for pt as the facility feels he remains a safety concern for them.
--- NOTE | 2021-03-23 13:48 | NUR ---
ANDRE attempted to contact Jon pt brother/LC, asking him to contact ANDRE when possible. Addendum: 03/23/21 at 1350 by KRISHNA POWELL The time stamp on this note is incorrect. This took place 03/23 @ 4085.
[2021-03-23 15:34] VITALS: BP 138/72
--- NOTE | 2021-03-23 17:40 | NUR ---
Patient has been calm, cooperative, disorganized, and mildly confused throughout this shift. He was generally withdrawn to his room and in the afternoon was preoccupied with making his bed. After supper, he had his roommate push him up and down the garcia. Will continue to monitor and report to oncoming shift.
[2021-03-23] MEDS: MIRTAZAPINE 15 MG TABLET PO SCH (20:31)
--- NOTE | 2021-03-23 22:24 | PN ---
DATE: 03/23/2021 SUBJECTIVE: The patient was seen today, met with the staff, chart reviewed, and also covering for Dr. Hartley. Staff reports he was awake last night, able to go back to sleep. Still withdrawn, confused at times. No major behavior problems. OBSERVATION: VITAL SIGNS: Temperature 97.5, blood pressure 124/64, pulse 62, respirations 16, O2 sat 94%. GENERAL: Slept about 7 hours last night. The patient's appetite is fair. LABORATORY DATA: The patient's lab reviewed. The patient on wheelchair. The patient has difficulty with ambulation. Staff reports no falls recently. . 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 PLAN: Continue with the current treatment plan. LENGTH OF STAY: [address]: Anabelle TID: [id number]
[2021-03-24 06:03] VITALS: BP 167/71
[2021-03-24] MEDS: SERTRALINE 50 MG TABLET. PO SCH (08:28)
[2021-03-24] MEDS: LACTOBACILLUS RHAMNOSUS GG 1 CAPSULE. PO SCH ×2 (08:28→20:18)
[2021-03-24] MEDS: CYANOCOBALAMIN (VITAMIN B-12) 1,000 MCG TABLET. PO SCH (08:28)
--- NOTE | 2021-03-24 08:58 | NUR ---
Pt A&O to self only, calm and cooperative this shift. He is disorganized and pleasantly confused, and denies pain when asked. He is compliant with whole medications and is receptive to encouragement provided. Absent of disruptive behaviors on the unit. Plan of care continues, will pass to next shift.
--- NOTE | 2021-03-24 11:56 | NUR ---
WEEKLY ACTIVITY THERAPY NOTE Date of Admission:12/30/20 Date of AT Assessment: 12/31 Precipitating behaviors that initiated intake and admission:putting self on floor, combative towards staff, refusing O2, threw medications, expresses she wants to & removes O2 Goal aimed: increase socialization and engagement Initial Goal: Pt will participate in at least three individual or group Activity Therapy sessions per week Goal changed 02/16:Pt will participate in at least three Activity Therapy sessions per week with moderate engagement Goal changed 02/24:Pt will participate in at least five Activity Therapy sessions per week Goal changed 03/10:Pt will participate in all Activity Therapy sessions per week Weekly progress towards goal: achieved, 10/31 Group participation level: 1 mod, 7 full Weekly highlights: answered a couple picture man puzzles , guessed tribonds with direct prompting Sunday, participated in all exercises and contributed to name dropper independently, answered several picture puzzles correctly and independently Sunday, listened to guided meditation and demonstrated power poses Sunday Behaviors observed: social, pleasant, 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
--- NOTE | 2021-03-24 14:03 | NUR ---
ANDRE received voicemail from Ni with [employer], who has covered pt days through the weekend with an update on Sunday. At this point, they are hoping for placement to be worked out in order to have pt discharge by Sunday or Sunday.
[2021-03-24 15:06] VITALS: BP 159/83
--- NOTE | 2021-03-24 15:52 | NUR ---
Treatment team update: Pt is eating 75% of meals and sleeping on average 7.25 hours per night. Pt for the last 72 hours has had no delusions but some mild confusion. Pt has been cooperative with all cares and takes medications whole. Pt has attended four groups with moderate participation. Pt has been pleasant during groups and interacts well. At this time, pt facility does not believe pt has consistent behaviors and would like to see more consistent notes that show no resistance to medications or cares. SW and pt brother has discussed looking at other places to aid in placement if possible, as there is concerned that they will not be able to handle pt as pt Dementia progresses.
--- NOTE | 2021-03-24 16:04 | TX PLAN ---
Interdisciplinary Tx Plan Admission Information Mar 07, 2021 at 15:19 Legal Status (on Admission): Voluntary DPOA/Guardian Name: Jon Robertson Contact Other Contact Name: [facility] gay Erickson Other Contact Verified Code Status: Full Code Allergies: Coded Allergies: No Known Allergies (Verified Allergy, Unknown, 03/07/21) Diagnoses Primary Diagnosis: Dementia with Behavioral Disturbance Reasons for Admission: Delusions, Sig. Change Appetite, Suspicious/paranoid, Confusion/Disoriented, Other Problem in Patient's Words: He just gets into these fits and then levels out Additional Admission Comments: According to the intake, thinks he's in detention, calls "spawn of the devil", yelling at people, refusing to eat, refusing meds, delusional, thinks family abandoned him and angry. Problems Active Problems: combative delusional refusal of medications upon admissions Inactive Problems: N/A Pt Strengths/Limitations Ability for [place]: Poor Cognitive Functioning/Ability: Fair Communication Skills/Ability: Fair Financial Resources: Good Insight/Judgement: Poor Intellectual Ability: Fair Physical Health: Fair Social Skills: Poor Stability in Family: Good Stability in School/Work: Poor Verbal Skills: Fair Discharge Criteria Discharge Criteria: No need for close observ., Adequate arrangements @DC, Improved behavior, Improved mood/thought Preliminary Discharge Plan Preliminary DC Plan: Current Living Arrange. Special Precautions Fall Risk: Moderate Initial D/C Plan Pt will return to [facility] at discharg Identified Discharge Needs: Potential referrals for psychiatric follow-up at discharge Currently Utilized Resources Currently Utilized Resources/P: Primary Care Physican Referrals Community Resources: Psychiatrist Identified Problems/Hx/Goals Objectives/Short-Term Goals Short Term Goals: Feb. Aggression, Feb. Outbursts, Improved Social Skills, Medication Stabilization, Promote Coping Skill Short Term Goals in Patient's: N/A Interventions/Frequency Staff Interventions/Frequency&: Psychiatrist to assess pt at least 3x per week for medication management. Social Work to assess pt at least 2x per week to identify barriers to care and discharge planning. Nursing to asess medication effects, behavior modification and completion of 15 minute checks daily. Encourage participation in group activities (if applicable) or 1:1 engagement based off Activity Dept goals. 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 Pt bought a bunch of land and then built [employer] on the land. Education: Pt did graduate high school (12 years) and attended one year of college. Community Follow-up Primary Care Physician Community Provider/Family Inpu: He has these "fits" sometimes. He just need something to take the edge off so he can be cared for at his facility. 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 Pt for the last 72 hours has had no delusions but some mild confusion. Pt has been cooperative with all cares and takes medications whole. Pt has attended four groups with moderate participation. Pt has been pleasant during groups and interacts well. At this time, pt facility does not believe pt has consistent behaviors and would like to see more consistent notes that show no resistance to medications or cares. SW and pt brother has discussed looking at other places to aid in placement if possible, as there is concerned that they will not be able to handle pt as pt Dementia progresses. KRISHNA RIVAS Mar 24, 2021 16:04
[2021-03-24] MEDS: MIRTAZAPINE 15 MG TABLET PO SCH (20:18)
--- NOTE | 2021-03-24 20:24 | PN ---
DATE: 03/24/2021 SUBJECTIVE: The patient was seen today, met with the staff, chart was reviewed and also participated in the treatment review conference today. Staff reports continued improvement with his behavior, still tends to withdraw to himself, stays in his room most of the time. Still having problems with short-term memory. The patient's behavior is appropriate, interacts with the staff and also participating in some of the activities. The patient denies of feeling depressed. LABORATORY DATA: The patient's lab reviewed. CURRENT MEDICATIONS: The patient's current medications include mirtazapine 15 mg at night, Zoloft 50 mg daily, lorazepam 0.5 mg q. 2 hours p.r.n., olanzapine 2.5 mg q. 2 hours p.r.n., trazodone 50 mg at night p.r.n. for sleep. The patient is not having any side effects to medications. 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 PLAN: To continue with current treatment plan. The patient is awaiting for placement. Apparently, the facility that he came from refused to take him back unless he shows significant improvement. LENGTH OF STAY: Five days. JEN DR: Anabelle TID: [id number]
--- NOTE | 2021-03-24 23:15 | NUR ---
Pt located in his room this evening sleeping in bed. Pt pleasant and compliant with whole medications. Pt currently sleeping.
[2021-03-25 05:59] VITALS: BP 147/61
[2021-03-25] MEDS: SERTRALINE 50 MG TABLET. PO SCH (08:12)
[2021-03-25] MEDS: CYANOCOBALAMIN (VITAMIN B-12) 1,000 MCG TABLET. PO SCH (08:12)
[2021-03-25] MEDS: LACTOBACILLUS RHAMNOSUS GG 1 CAPSULE. PO SCH ×2 (08:12→19:53)
--- NOTE | 2021-03-25 09:02 | NUR ---
Pt calm, cooperative, and appropriate this shift. During breakfast appetite appeared adequate. He is compliant with whole medications. Absent of disruptive behaviors on the unit. Plan of care continues, will pass to next shift.
[2021-03-25 15:42] VITALS: BP 148/88
[2021-03-25] MEDS: MIRTAZAPINE 15 MG TABLET PO SCH (19:53)
--- NOTE | 2021-03-25 22:39 | PN ---
DATE: 03/25/2021 SUBJECTIVE: The patient was seen today, met with the staff. Chart was reviewed and also covering for Dr. Hartley. The patient's behavior has improved significantly. He is much calmer, mostly on wheelchair. No falls. The patient is not exhibiting any major behavioral problems. He is not depressed. He continues to have short-term memory deficits. OBSERVATION: VITAL SIGNS: Temperature 97.2, blood pressure 147/61, pulse 59, respirations 18, O2 sat 94%. Slept about 10 hours last night. LABORATORY DATA: The patient's lab reviewed. CURRENT MEDICATIONS: The patient's current medications include mirtazapine 15 mg at night, Zoloft 50 mg daily, lorazepam 0.5 mg q.2 hours p.r.n., olanzapine 2.5 mg q.2 hours p.r.n. and trazodone 50 mg at night p.r.n. The patient denies of any side effects. 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 PLAN: To continue with treatment. The patient is awaiting for placement. LENGTH OF STAY: [address]: Anabelle TID: [id number]
--- NOTE | 2021-03-25 23:45 | NUR ---
Patient is located in his room on assumption of care, sitting in his wheelchair with a couple of peers. He is disorganized, pleasantly confused. No delusions voiced so far this shift, no agitated behaviors. He was compliant with assessments and medications whole. Cooperative with shower and cares. He enjoyed showing staff his personalized book, and agreed it would be safer if locked up in the closet when he's not reading it. He denies any pain or discomfort and appears to be sleeping comfortably at present time. Will continue to monitor.
[2021-03-26 06:00] VITALS: BP 129/70
[2021-03-26] MEDS: SERTRALINE 50 MG TABLET. PO SCH (08:30)
[2021-03-26] MEDS: LACTOBACILLUS RHAMNOSUS GG 1 CAPSULE. PO SCH ×2 (08:30→20:07)
[2021-03-26] MEDS: CYANOCOBALAMIN (VITAMIN B-12) 1,000 MCG TABLET. PO SCH (08:30)
[2021-03-26] MEDS: CHOLECALCIFEROL (VITAMIN D3) 50,000 UNIT CAPSULE PO SCH (08:30)
--- NOTE | 2021-03-26 13:57 | NUR ---
Nursing note: Patient is in dinning room for morning medication & assessment. He was compliant with medications taken whole. He is A/O X3, unable to report date. He is calm, disorganized, & pleasantly confused. He propels self in w/c, requires a standby assist with transfers. Patient denies pain/discomfort. He is currently sitting in his w/c in his room with eyes closed. Will continue to monitor.
[2021-03-26 15:52] VITALS: BP 136/67
[2021-03-26] MEDS: MIRTAZAPINE 15 MG TABLET PO SCH (20:07)
--- NOTE | 2021-03-26 21:00 | NUR ---
Patient is located in his room on assumption of care, sitting in his wheelchair. He is disorganized, pleasantly confused. No delusions voiced so far this shift, no agitated behaviors. He was compliant with assessments and medications whole. Cooperative with HS cares. He denies any pain or discomfort and appears to be sleeping comfortably at present time. Will continue to monitor.
[2021-03-27 06:29] VITALS: BP 164/71
[2021-03-27] MEDS: SERTRALINE 50 MG TABLET. PO SCH (08:10)
[2021-03-27] MEDS: CYANOCOBALAMIN (VITAMIN B-12) 1,000 MCG TABLET. PO SCH (08:10)
[2021-03-27] MEDS: LACTOBACILLUS RHAMNOSUS GG 1 CAPSULE. PO SCH ×2 (08:10→19:46)
--- NOTE | 2021-03-27 13:48 | NUR ---
Nursing note: Patient is in dinning room for morning medication & assessment. He was compliant with medications taken whole. He is A/O X3, unable to report location. He is calm, disorganized, & pleasantly confused. He propels self in w/c, requires a standby assist with transfers. Patient denies pain/discomfort. He is currently sitting in his w/c in his room handling papers. Will continue to monitor.
--- NOTE | 2021-03-27 14:59 | PN ---
DATE: 03/27/2021 SUBJECTIVE: The patient was seen today, met with the staff, chart reviewed. The patient's behavior improved. The patient is not having any medical issues. No physical complaints. The patient tends to isolate himself in his room, but no major behavior problems. OBSERVATION: VITAL SIGNS: Temperature and vital signs were within normal range. GENERAL: The patient's appetite is fair. The patient is on wheelchair and no falls. CURRENT MEDICATIONS: Currently, on mirtazapine 15 mg at night, Zoloft 50 mg at night, lorazepam 0.5 mg every 2 hours p.r.n., also olanzapine 2.5 mg every 2 hours p.r.n. and also trazodone 50 mg at night p.r.n. The patient is not having any side effects to medications. 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 PLAN: To continue with the treatment. NIDIA DR: Anabelle TID: [phone]
[2021-03-27 15:58] VITALS: BP 158/80
--- NOTE | 2021-03-27 18:27 | PN ---
DATE: 03/26/2021 SUBJECTIVE: This is a late entry for the service date 03/26/2021, evaluated the patient via telehealth, discussed with the staff and chart reviewed. Staff reports no major behavior problems. The patient stays in his room. Apparently is comfortable with himself, not complaining of any depression or anxiety. OBSERVATION: VITAL SIGNS: Temperature 97.4, blood pressure 129/70, pulse 64, respirations 18, O2 sat 96%. Slept about 7 hours last night. GENERAL: The patient's appetite is fair. CURRENT MEDICATIONS: The patient is not having any side effects to medications. He will continue on his medications including mirtazapine, Zoloft, p.r.n. lorazepam, olanzapine, and trazodone. The patient is not having any side effects. 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 PLAN: To continue with treatment. Awaiting for placement. LENGTH OF STAY: Five days. REGINALD DR: Anabelle TID: [phone]
[2021-03-27] MEDS: MIRTAZAPINE 15 MG TABLET PO SCH (19:46)
--- NOTE | 2021-03-27 23:20 | NUR ---
Patient is located in his room on assumption of care, awake in bed. He is disorganized, pleasantly confused. No delusions voiced so far this shift, no agitated behaviors. He was compliant with assessments and medications whole. Cooperative with HS cares. He denies any pain or discomfort and appears to be sleeping comfortably at present time. Will continue to monitor.
[2021-03-28 06:13] VITALS: BP 184/84
[2021-03-28 07:18] LABS: BASO % 1 % (0-3); EOS # 0.2 x10^3/uL (0.0-0.7); EOS % 4 % (0-3); HEMATOCRIT 34.7 % (39.0-53.0); HEMOGLOBIN 11.8 g/dL (13.0-17.5); LYMPH # 1.3 x10^3/uL (1.0-4.8); LYMPH % 22 % (24-48); MEAN CORPUSCULAR HEMOGLOBIN 36 pg (25-35); MEAN CORPUSCULAR HGB CONC 34 g/dL (31-37); MEAN CORPUSCULAR VOLUME 105 fL (79-100); MONO # 0.6 x10^3/uL (0.0-1.1); MONO % 11 % (0-9); NEUT # 3.8 x10^3uL (1.8-7.7); NEUT % 63 % (31-73); PLATELET COUNT 239 x10^3/uL (140-400); RED BLOOD COUNT 3.31 x10^6/uL (4.30-5.70); RED CELL DISTRIBUTION WIDTH 13.3 % (11.5-14.5)
[2021-03-28 07:28] LABS: ALBUMIN/GLOBULIN RATIO 0.7 (1.0-1.7); CALCIUM 8.6 mg/dL (8.5-10.1); CREATININE 1.1 mg/dL (0.7-1.3); GFR 63.6; POTASSIUM 3.9 mmol/L (3.5-5.1); TOTAL BILIRUBIN 0.5 mg/dL (0.2-1.0); TOTAL PROTEIN 7.3 g/dL (6.4-8.2)
[2021-03-28] MEDS: CYANOCOBALAMIN (VITAMIN B-12) 1,000 MCG TABLET. PO SCH (07:55)
[2021-03-28] MEDS: LACTOBACILLUS RHAMNOSUS GG 1 CAPSULE. PO SCH ×2 (07:55→21:11)
[2021-03-28] MEDS: SERTRALINE 50 MG TABLET. PO SCH (07:55)
--- NOTE | 2021-03-28 15:48 | NUR ---
Nursing note: Patient is in dinning room for morning medication & assessment. He was compliant with medications taken whole. He is A/O X4. He is calm, disorganized, & pleasantly confused. He propels self in w/c, requires a standby assist with transfers. Patient denies pain/discomfort. He is currently sitting in his w/c in day room. Will continue to monitor.
[2021-03-28 16:23] VITALS: BP 165/75
[2021-03-28] MEDS: MIRTAZAPINE 15 MG TABLET PO SCH (21:11)
--- NOTE | 2021-03-28 21:34 | PN ---
DATE: 03/28/2021 SUBJECTIVE: The patient was seen today, met with the staff. Chart reviewed and also covering for admission Dr. Hartley. The patient continues to show improvement, not presenting any major behavior problems. Staff observed to be much calmer, but tend to spend more time in his room, but interacts with the staff. OBSERVATION: VITAL SIGNS: Temperature 97.8, blood pressure 184/84, pulse 65, respirations 18, O2 sat 96%. Slept about 9 hours last night. GENERAL: The patient's appetite is fair. CURRENT MEDICATIONS: Includes mirtazapine, Zoloft, lorazepam p.r.n. He is also on olanzapine and trazodone as p.r.n. He is not having any side effects to medications. 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 PLAN: To continue treatment. LENGTH OF STAY: Five days. Awaiting for placement. MALICK DR: Anabelle TID: [phone]
[2021-03-29 06:09] VITALS: BP 152/70
[2021-03-29] MEDS: CYANOCOBALAMIN (VITAMIN B-12) 1,000 MCG TABLET. PO SCH (08:38)
[2021-03-29] MEDS: SERTRALINE 50 MG TABLET. PO SCH (08:38)
[2021-03-29] MEDS: LACTOBACILLUS RHAMNOSUS GG 1 CAPSULE. PO SCH ×2 (08:38→20:11)
--- NOTE | 2021-03-29 13:10 | NUR ---
ANDRE returned call to Jon to see about whether or not pt could discharge. ANDRE explained that at this time, none of the pt tests have returned yet; therefore, we are still on hold with making discharge decisions. ANDRE did inform Jon that the insurance company has covered an extra day to get the results back. ANDRE will update insurance and then update him once a decision on insurance has been made.
--- NOTE | 2021-03-29 15:06 | NUR ---
ANDRE contacted Jon, pt brother/DPOA, to let him know that pt test results are negative. Once the last result comes in, the administration and others will determine if discharges can proceed or will be held. ANDRE will be able to keep Jon updated.
--- NOTE | 2021-03-29 15:20 | NUR ---
Nursing note: Patient is in dinning room for morning medication & assessment. He was compliant with medications taken whole. He is A/O X4. He is calm, disorganized, & pleasantly confused. He voice concerns about wanting to discharge home not recognizing his limitations, as well as his displeasure with his children. He propels self in w/c, requires a standby assist with transfers. Patient denies pain/discomfort. He is currently sitting in his w/c in his room. Will continue to monitor.
[2021-03-29 15:39] VITALS: BP 158/73
[2021-03-29] MEDS: MIRTAZAPINE 15 MG TABLET PO SCH (20:11)
--- NOTE | 2021-03-29 21:47 | PN ---
DATE: 03/29/2021 SUBJECTIVE: The patient was seen today, met with the staff, chart reviewed. The patient's behavior continues to improve, not presenting with any marked confusion, any behavior problems, but still lacking insight and unrealistic with his plans and is hoping to go back home and wanting to drive his car. OBSERVATION: VITAL SIGNS: Temperature 97.9, blood pressure 152/70, pulse 71, respirations 16, O2 sat 94%. GENERAL: Slept about 6 hours last night. The patient's appetite is fair. LABORATORY DATA: The patient's lab reviewed. CURRENT MEDICATIONS: The patient's current medications include mirtazapine, Zoloft and lorazepam p.r.n. The patient is also on olanzapine and trazodone p.r.n. He is not having any side effects to medications. PLAN: To continue with the treatment. LENGTH OF STAY: Three to five days. REJI DR: Anabelle TID: [phone]
--- NOTE | 2021-03-30 03:34 | NUR ---
Pt has been pleasant and cooperative tonight. He took meds whole and has had no behaviors tonight. Since going to bed he has been sleeping.
[2021-03-30 06:26] VITALS: BP 168/77
[2021-03-30] MEDS: SERTRALINE 50 MG TABLET. PO SCH (08:14)
[2021-03-30] MEDS: LACTOBACILLUS RHAMNOSUS GG 1 CAPSULE. PO SCH ×2 (08:14→20:22)
[2021-03-30] MEDS: CYANOCOBALAMIN (VITAMIN B-12) 1,000 MCG TABLET. PO SCH (08:14)
--- NOTE | 2021-03-30 10:15 | NUR ---
SW met with pt per his request to discuss discharge. SW explained that in light of recent events and Covid, we would not be able to discharge anyone until Sunday. Pt appeared to understand and noted "if that what must be done, nothing I can do about it". SW noted that he is doing a great job and to keep working with staff on taking his medication and completion of cares.
--- NOTE | 2021-03-30 14:33 | NUR ---
Nsg Note: Ismael has been calm, cooperative and med compliant today. He prefers to stay in the hallway between meals, sitting with peers and occ talking with them.
[2021-03-30 15:42] VITALS: BP 119/68
[2021-03-30] MEDS: MIRTAZAPINE 15 MG TABLET PO SCH (20:22)
--- NOTE | 2021-03-30 21:52 | PN ---
DATE: 03/30/2021 SUBJECTIVE: The patient was seen today, met with the staff. Chart reviewed. The patient's behavior has improved. Staff reports no major behavior problems. OBSERVATION: VITAL SIGNS: Temperature 97.5, blood pressure 168/77, pulse 61, respirations 20, O2 sat 93%. Slept about 7 hours last night. GENERAL: The patient's appetite normal. The patient is not having any side effects to medications. The patient has no major physical complaints. CURRENT MEDICATIONS: Include mirtazapine 15 mg at night, Zoloft 50 mg daily, lorazepam 0.5 mg q. 2 hours p.r.n., olanzapine 2.5 mg q. 2 hours p.r.n., and trazodone 50 mg at night p.r.n. 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 PLAN: Continue treatment. LENGTH OF STAY: Three to five days. TEO DR: Anabelle TID: [phone]
[2021-03-31 06:08] VITALS: BP 164/74
[2021-03-31] MEDS: SERTRALINE 50 MG TABLET. PO SCH (08:22)
[2021-03-31] MEDS: LACTOBACILLUS RHAMNOSUS GG 1 CAPSULE. PO SCH ×2 (08:22→20:06)
[2021-03-31] MEDS: CYANOCOBALAMIN (VITAMIN B-12) 1,000 MCG TABLET. PO SCH (08:22)
--- NOTE | 2021-03-31 11:47 | NUR ---
WEEKLY ACTIVITY THERAPY NOTE Date of Admission:03/07/21 Date of AT Assessment: 03/10 Precipitating behaviors that initiated intake and admission:Refused to elevate legs, thinks he's in nursing home, refusing skin assessments, wants to take clothes off, argumentative, yelling at people, refusing to eat, refusing meds, delusional, family abandoned him, very angry, calls staff spawn of the devil, paranoid Goal aimed: increase socialization and engagement Initial Goal:Pt will participate in at least three Activity Therapy session per week Goal changed 03/24:Pt will participate in at least five Activity Therapy session per week Weekly progress towards goal: did not achieve, zero Group participation level: none Weekly highlights: no participation Behaviors observed: politely declines group offers, alternate leisure-reading a book Plan: no change to goal Beneficial adaptations: engagement and socialization
--- NOTE | 2021-03-31 13:12 | NUR ---
Nsg Note; Ismael has been calm and cooperative today. He takes his meds whole without difficulty. He is able to wheel himself in the w/c but does need assist when transferring to the toilet.
[2021-03-31 15:52] VITALS: BP 120/81
[2021-03-31] MEDS: MIRTAZAPINE 15 MG TABLET PO SCH (20:06)
--- NOTE | 2021-03-31 20:36 | PN ---
DATE: 03/31/2021 SUBJECTIVE: The patient was seen today, met with the staff, chart reviewed and also participated in the treatment review conference. Staff reports no major behavior problems. He has improved significantly. His appetite improved. The patient is not having any physical complaints. The patient is on wheelchair. Did not have any falls. OBSERVATION: VITAL SIGNS: Temperature 97.9, blood pressure 164/74, pulse 68, respirations 16, O2 sat 97%. GENERAL: Slept about 6 hours last night. The patient's appetite improved. LABORATORY DATA: The patient's lab reviewed. CURRENT MEDICATIONS: Mirtazapine 15 mg at night, Zoloft 50 mg daily, lorazepam 0.5 mg q. 2 hours p.r.n., and olanzapine 2.5 mg q. 2 hours p.r.n., and trazodone 50 mg at night p.r.n. The patient is not having any side effects to medications. 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 PLAN: We will continue with treatment. LENGTH OF STAY: Three to five days. VIVIAN DR: Anabelle TID: [phone]
--- NOTE | 2021-03-31 23:02 | NUR ---
Pt located in his room this evening laying in bed. Pleasant and cooperative. Compliant with whole medications. Pt currently sleeping.
[2021-04-01 06:25] VITALS: BP 158/68
[2021-04-01] MEDS: LACTOBACILLUS RHAMNOSUS GG 1 CAPSULE. PO SCH ×2 (09:12→20:46)
[2021-04-01] MEDS: SERTRALINE 50 MG TABLET. PO SCH (09:12)
[2021-04-01] MEDS: CYANOCOBALAMIN (VITAMIN B-12) 1,000 MCG TABLET. PO SCH (09:13)
[2021-04-01 15:54] VITALS: BP 155/74
[2021-04-01] MEDS: MIRTAZAPINE 15 MG TABLET PO SCH (20:46)
--- NOTE | 2021-04-02 00:32 | NUR ---
Nursing Note The patient was located in his room for his assessment and medication pass. The patient was compliant with medication and took them whole. The patient was alert to name, date and location. The patient is currently sleeping in his room.
--- NOTE | 2021-04-02 02:39 | PN ---
DATE: 04/01/2021 SUBJECTIVE: The patient continues to show improvement. Staff reports no major behavior problems except he tends to isolate himself in his room, pleasant. Staff also observed in the night that he was confused, lying on the floor. The patient is on wheelchair. No recent falls. OBSERVATION: VITAL SIGNS: Temperature 96.8, blood pressure 158/68, pulse 62, respirations 16, O2 sat 93%. GENERAL: Slept about 8 hours last night. The patient's appetite is fair. CURRENT MEDICATIONS: Mirtazapine 15 mg at night, Zoloft 50 mg daily, lorazepam 0.5 mg q. 2 hours p.r.n., and olanzapine 2.5 mg 2 hours p.r.n. The patient is also on trazodone 50 mg at night p.r.n. The patient is not having any side effects to medications. 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 PLAN: To continue treatment. LENGTH OF STAY: Three to five days. HOWIE DR: Anabelle TID: [phone]
[2021-04-02 06:22] VITALS: BP 151/74
[2021-04-02] MEDS: CHOLECALCIFEROL (VITAMIN D3) 50,000 UNIT CAPSULE PO SCH (09:21)
[2021-04-02] MEDS: LACTOBACILLUS RHAMNOSUS GG 1 CAPSULE. PO SCH ×2 (09:21→20:10)
[2021-04-02] MEDS: SERTRALINE 50 MG TABLET. PO SCH (09:21)
[2021-04-02] MEDS: CYANOCOBALAMIN (VITAMIN B-12) 1,000 MCG TABLET. PO SCH (09:21)
[2021-04-02] MEDS: CEPHALEXIN 250 MG CAPSULE PO SCH ×2 (13:30→20:10)
[2021-04-02 16:15] VITALS: BP 154/83
[2021-04-02] MEDS: risperiDONE 0.25 MG TABLET. PO SCH (20:10)
[2021-04-02] MEDS: MIRTAZAPINE 15 MG TABLET PO SCH (20:10)
[2021-04-03 06:41] VITALS: BP 142/78
[2021-04-03 07:53] LABS: BILIRUBIN,URINE NEG (NEG); CLARITY,URINE CLEAR; COLOR,URINE YELLOW; GLUCOSE,URINE NEG (NEG); UROBILINOGEN,URINE 0.2 mg/dL (0.2 mg/dL)
[2021-04-03 07:54] LABS: BACTERIA,URINE 0 /HPF (0-FEW); NITRITE,URINE NEG (NEG); RBC,URINE 0 /HPF (0-2); WBC,URINE 0 /HPF (0-4)
[2021-04-03] MEDS: CYANOCOBALAMIN (VITAMIN B-12) 1,000 MCG TABLET. PO SCH (08:40)
[2021-04-03] MEDS: SERTRALINE 50 MG TABLET. PO SCH (08:40)
[2021-04-03] MEDS: LACTOBACILLUS RHAMNOSUS GG 1 CAPSULE. PO SCH ×2 (08:40→20:39)
[2021-04-03] MEDS: CEPHALEXIN 250 MG CAPSULE PO SCH ×3 (08:40→20:39)
--- NOTE | 2021-04-03 13:30 | NUR ---
Nursing note: Patient is sitting up in wheelchair in room. Calm, quiet and cooperative. Compliant with meds and care. No delusions noted today.
[2021-04-03 16:17] VITALS: BP 134/82
--- NOTE | 2021-04-03 17:45 | NUR ---
Nurse Note: Sore throat Patient complains of sore throat. He was swabbed for Covid-19 at this time.
[2021-04-03] MEDS: risperiDONE 0.25 MG TABLET. PO SCH (20:39)
[2021-04-03] MEDS: MIRTAZAPINE 15 MG TABLET PO SCH (20:39)
--- NOTE | 2021-04-03 21:05 | PDOC ---
Exam Note: Carmelo Note: Late entry for 04/02/2021. Please also refer to the separate dictated note~for this date of service dictated separately.~Patient seen individually. Discussed the patient with Nursing staff reviewed the chart.~Reviewed interim history and current functioning. Reviewed vital signs,~Labs/ Radiology~and current medic ations noted below. Continue current treatment with the changes noted in the dictated addendum note Assessment: Vital Signs/I&O: Vital Signs Date Time Temp Pulse Resp B/P (MAP) Pulse Ox O2 Delivery O2 Flow Rate FiO2 04/03/21 16:17 98.2 96 16 134/82 (99) 95 Room Air I & O 04/02/21 04/02/21 04/03/21 15:00 23:00 07:00 Intake Total 840 ml 240 ml Balance 840 ml 240 ml Labs: Laboratory Tests Test 04/03/21 05:30 Urine Collection Type Unknown Urine Color Yellow Urine Clarity Clear Urine pH 7.5 Urine Specific [place] 1.020 Urine Protein Neg (NEG-TRACE) Urine Glucose (UA) Neg mg/dL (NEG) Urine Ketones (Stick) Neg mg/dL (NEG) Urine Blood Neg (NEG) Urine Nitrite Neg (NEG) Urine Bilirubin Neg (NEG) Urine Urobilinogen Dipstick 0.2 mg/dL (0.2 mg/dL) Urine Leukocyte Esterase Neg (NEG) Urine RBC 0 /HPF (0-2) Urine WBC 0 /HPF (0-4) Urine Bacteria 0 /HPF (0-FEW) Current Medications: Meds: Laboratory Tests Test 04/03/21 05:30 Urine Collection Type Unknown Urine Color Yellow Urine Clarity Clear Urine pH 7.5 Urine Specific [place] 1.020 Urine Protein Neg Urine Glucose (UA) Neg mg/dL Urine Ketones (Stick) Neg mg/dL Urine Blood Neg Urine Nitrite Neg Urine Bilirubin Neg Urine Urobilinogen Dipstick 0.2 mg/dL Urine Leukocyte Esterase Neg Urine RBC 0 /HPF Urine WBC 0 /HPF Urine Bacteria 0 /HPF Current Medications Medications (Trade) Dose Ordered Sig/Joseline Route PRN Reason Start Time Stop Time Status Last Admin Dose Admin Acetaminophen (Tylenol) 650 mg PRN Q6HRS PRN PO MILD PAIN / TEMP > 100.3'F 03/07/21 11:45 Multi-Ingredient Ointment (Analgesic [place]) 1 rivka PRN QID PRN TP MUSCLE PAIN 03/07/21 11:45 Al Hydroxide/Mg Hydroxide (Mylanta Plus Xs) 15 ml PRN AFTMEALHC PRN PO DYSPEPSIA 03/07/21 11:45 Magnesium Hydroxide (Milk Of Magnesia) 2,400 mg PRN QHS PRN PO CONSTIPATION 03/07/21 11:45 Trazodone HCl (Desyrel) 50 mg PRN QHS PRN PO INSOMNIA, MAY REPEAT X2 03/07/21 19:45 03/20/21 21:52 Olanzapine (ZyPREXA ZYDIS) 2.5 mg PRN Q2HRS PRN PO PSYCHOSIS 03/07/21 19:45 03/20/21 21:52 Lorazepam (Ativan) 0.5 mg PRN Q2HR PRN PO ANXIETY / AGITATION 03/07/21 21:15 03/17/21 15:38 Nystatin (Nystop) 1 rivka BID TP 03/08/21 21:00 03/22/21 13:04 DC 03/21/21 20:08 Cyanocobalamin (Vitamin B-12) 1,000 mcg DAILY08 PO 03/09/21 08:00 04/03/21 08:40 Docusate Sodium (Colace) 100 mg PRN DAILY PRN PO 2ND CHOICE CONSTIPATION 03/08/21 14:00 03/26/21 05:13 Polyethylene Glycol (miraLAX) 17 gm PRN DAILY PRN PO FIRST CHOICE CONSTIPATION 03/08/21 14:00 Sertraline HCl (Zoloft) 25 mg DAILY PO 03/09/21 09:00 03/11/21 21:00 DC 03/11/21 08:46 Sertraline HCl (Zoloft) 50 mg DAILY PO 03/12/21 09:00 04/03/21 08:40 Enoxaparin Sodium (Lovenox 80mg Syringe) 70 mg Q12HR SQ 03/09/21 21:00 03/10/21 17:44 DC 03/10/21 09:25 Amoxicillin (Amoxil) 500 mg TID PO 03/10/21 21:00 03/17/21 16:00 DC 03/17/21 14:01 Lactobacillus Rhamnosus (Culturelle) 1 cap BID PO 03/11/21 21:00 04/03/21 20:39 Vitamin D (Vitamin D3) 50,000 unit WEEKLY PO 03/12/21 17:30 04/02/21 09:21 Mirtazapine (Remeron) 15 mg QHS PO 03/21/21 21:00 04/03/21 20:39 Nystatin (Nystop) 1 rivka PRN BID PRN TP REDNESS 03/22/21 13:00 Cephalexin HCl (Keflex) 500 mg TID PO 04/02/21 14:00 04/09/21 13:59 04/03/21 20:39 Risperidone (RisperDAL) 0.25 mg HS PO 04/02/21 21:00 04/03/21 20:39 I have reviewed the current psychotropics carefully including drug interactions. Risk benefit ratio favors no change other than as noted in my dictated progress note. Diagnosis: Problems: (1) Impulse control disorder, unspecified (2) Anxiety disorder, unspecified (3) Dementia, vascular, with depression (4) Dementia, vascular, with delusions (5) Dementia in Alzheimer's disease with depression (6) Dementia in Alzheimer's disease with delusions (7) Dementia of the Alzheimer's type with early onset with behavioral disturbance (8) Major neurocognitive disorder JENNY CHEUNG MD Apr 03, 2021 21:05
--- NOTE | 2021-04-03 21:14 | PDOC ---
Exam Note: Carmelo Note: Please also refer to the separate dictated note~for this date of service dictated separately.~Patient seen individually. Discussed the patient with Nursing staff reviewed the chart.~Reviewed interim history and current functioning. Reviewed vital signs,~Labs/ Radiology~and current medications noted below. Continue current treatment with the changes noted in the dictated addendum note Assessment: Vital Signs/I&O: Vital Signs Date Time Temp Pulse Resp B/P (MAP) Pulse Ox O2 Delivery O2 Flow Rate FiO2 04/03/21 16:17 98.2 96 16 134/82 (99) 95 Room Air I & O 04/02/21 04/02/21 04/03/21 15:00 23:00 07:00 Intake Total 840 ml 240 ml Balance 840 ml 240 ml Labs: Laboratory Tests Test 04/03/21 05:30 Urine Collection Type Unknown Urine Color Yellow Urine Clarity Clear Urine pH 7.5 Urine Specific [place] 1.020 Urine Protein Neg (NEG-TRACE) Urine Glucose (UA) Neg mg/dL (NEG) Urine Ketones (Stick) Neg mg/dL (NEG) Urine Blood Neg (NEG) Urine Nitrite Neg (NEG) Urine Bilirubin Neg (NEG) Urine Urobilinogen Dipstick 0.2 mg/dL (0.2 mg/dL) Urine Leukocyte Esterase Neg (NEG) Urine RBC 0 /HPF (0-2) Urine WBC 0 /HPF (0-4) Urine Bacteria 0 /HPF (0-FEW) Current Medications: Meds: Laboratory Tests Test 04/03/21 05:30 Urine Collection Type Unknown Urine Color Yellow Urine Clarity Clear Urine pH 7.5 Urine Specific [place] 1.020 Urine Protein Neg Urine Glucose (UA) Neg mg/dL Urine Ketones (Stick) Neg mg/dL Urine Blood Neg Urine Nitrite Neg Urine Bilirubin Neg Urine Urobilinogen Dipstick 0.2 mg/dL Urine Leukocyte Esterase Neg Urine RBC 0 /HPF Urine WBC 0 /HPF Urine Bacteria 0 /HPF Current Medications Medications (Trade) Dose Ordered Sig/Joseline Route PRN Reason Start Time Stop Time Status Last Admin Dose Admin Acetaminophen (Tylenol) 650 mg PRN Q6HRS PRN PO MILD PAIN / TEMP > 100.3'F 03/07/21 11:45 Multi-Ingredient Ointment (Analgesic [place]) 1 rivka PRN QID PRN TP MUSCLE PAIN 03/07/21 11:45 Al Hydroxide/Mg Hydroxide (Mylanta Plus Xs) 15 ml PRN AFTMEALHC PRN PO DYSPEPSIA 03/07/21 11:45 Magnesium Hydroxide (Milk Of Magnesia) 2,400 mg PRN QHS PRN PO CONSTIPATION 03/07/21 11:45 Trazodone HCl (Desyrel) 50 mg PRN QHS PRN PO INSOMNIA, MAY REPEAT X2 03/07/21 19:45 03/20/21 21:52 Olanzapine (ZyPREXA ZYDIS) 2.5 mg PRN Q2HRS PRN PO PSYCHOSIS 03/07/21 19:45 03/20/21 21:52 Lorazepam (Ativan) 0.5 mg PRN Q2HR PRN PO ANXIETY / AGITATION 03/07/21 21:15 03/17/21 15:38 Nystatin (Nystop) 1 rivka BID TP 03/08/21 21:00 03/22/21 13:04 DC 03/21/21 20:08 Cyanocobalamin (Vitamin B-12) 1,000 mcg DAILY08 PO 03/09/21 08:00 04/03/21 08:40 Docusate Sodium (Colace) 100 mg PRN DAILY PRN PO 2ND CHOICE CONSTIPATION 03/08/21 14:00 03/26/21 05:13 Polyethylene Glycol (miraLAX) 17 gm PRN DAILY PRN PO FIRST CHOICE CONSTIPATION 03/08/21 14:00 Sertraline HCl (Zoloft) 25 mg DAILY PO 03/09/21 09:00 03/11/21 21:00 DC 03/11/21 08:46 Sertraline HCl (Zoloft) 50 mg DAILY PO 03/12/21 09:00 04/03/21 08:40 Enoxaparin Sodium (Lovenox 80mg Syringe) 70 mg Q12HR SQ 03/09/21 21:00 03/10/21 17:44 DC 03/10/21 09:25 Amoxicillin (Amoxil) 500 mg TID PO 03/10/21 21:00 03/17/21 16:00 DC 03/17/21 14:01 Lactobacillus Rhamnosus (Culturelle) 1 cap BID PO 03/11/21 21:00 04/03/21 20:39 Vitamin D (Vitamin D3) 50,000 unit WEEKLY PO 03/12/21 17:30 04/02/21 09:21 Mirtazapine (Remeron) 15 mg QHS PO 03/21/21 21:00 04/03/21 20:39 Nystatin (Nystop) 1 rivka PRN BID PRN TP REDNESS 03/22/21 13:00 Cephalexin HCl (Keflex) 500 mg TID PO 04/02/21 14:00 04/09/21 13:59 04/03/21 20:39 Risperidone (RisperDAL) 0.25 mg HS PO 04/02/21 21:00 04/03/21 20:39 I have reviewed the current psychotropics carefully including drug interactions. Risk benefit ratio favors no change other than as noted in my dictated progress note. Diagnosis: Problems: (1) Impulse control disorder, unspecified (2) Anxiety disorder, unspecified (3) Dementia, vascular, with depression (4) Dementia, vascular, with delusions (5) Dementia in Alzheimer's disease with depression (6) Dementia in Alzheimer's disease with delusions (7) Dementia of the Alzheimer's type with early onset with behavioral disturbance (8) Major neurocognitive disorder JENNY CHEUNG MD Apr 03, 2021 21:14
--- NOTE | 2021-04-03 22:49 | NUR ---
Pt located in his room this evening sitting calmly in his wheelchair. Pt calm and pleasant. States he does not feel well. Lung sounds clear. Covid test results pending. Compliant with whole medications. Pt currently sleeping.
[2021-04-04] MEDS ORDERED: CEPH500T PO (03:46)
[2021-04-04] MEDS ORDERED: RISP0.5T24 PO (03:47)
--- NOTE | 2021-04-04 05:52 | NUR ---
Pt's covid test results came back positive. Pt transferred to [address] [place] [address] 115. Report given to Tamara. PLATT will be notified this morning. Addendum: 04/04/21 at 0634 by ESTEFANÍA GARCIA RN Spoke with LC Webb, informing him of pt's transfer.
--- NOTE | 2021-04-04 05:53 | NUR ---
Transition Record was faxed to follow-up provider with the following elements: Reason for admission, procedures, tests, principal diagnosis, pending studies, patient instructions, 16/10 contact information for unit, phone number to obtain pending test results, plan for follow-up care, physician follow-up, advanced directive information, and medication list with dose, duration and instructions. This information was included in the following documents: History and physical, lab results, study results, progress notes, social work planning form, DC instruction form, patient visit summary, and medication reconciliation form. Date & time record faxed:04/04/21 [id number] Record faxed to: [facility] Record discussed with/ report given to: Rica BARRY
--- NOTE | 2021-04-04 07:28 | PDOC ---
Exam Note: Carmelo Note: This note is a late entry for 04/02/2021 covers elements not covered in my initial note. Subjective: The patient was seen on telehealth rounds in the evening of 04/02/2021 due to COVID-19 exposure on our unit and half the patients have been COVID positive and transferred to the Medical/Surgical Floor. Discussed with Radha BARRY and reviewed the chart. Also discussed the patient with Dr. Huber who covered for me for the past 2 weeks. Reviewed the patients history, diagnoses, progress, work-up, labs etc. The patient slept 7-1/2 hours previous night. He remains somewhat paranoid, delusional, believes son is stealing money from his properties and business. His brother is his power of defense attorney but the patient is not as delusional about the brother. Review of Systems: He is seated in a wheelchair bent forward. No CV, , pulmonary, eye, ENT system symptoms on review. Mental Status Exam: The patient is oriented to himself and situation. Speech has some latency, coherent. Abstraction fair. Computation impaired. Language function intact. Attention span short. He is quite paranoid, suspicious. He believes his family is conspiring against him for money. Laboratory Data: Reviewed. Impression: Psychotic disorder unspecified. 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 Major depressive disorder with psychotic features. Anxiety disorder unspecified. Impulse control disorder unspecified. Plan: I have carefully reviewed the patients current psychotropics. He is currently on Zyprexa p.r.n., trazodone p.r.n. for insomnia, Ativan p.r.n. for anxiety, Remeron 15 mg h.s., Zoloft 50 mg a day. Given his paranoia, we will add Risperdal 0.25 mg p.o. h.s. Reviewed drug interactions and risk-benefit ratio. We will adjust further as clinically indicated. Assessment: Vital Signs/I&O: Vital Signs Date Time Temp Pulse Resp B/P (MAP) Pulse Ox O2 Delivery O2 Flow Rate FiO2 04/03/21 16:17 98.2 96 16 134/82 (99) 95 Room Air I & O 0 04/03/21 04/03/21 04/04/21 15:00 23:00 07:00 Intake Total 480 ml 440 ml Balance 480 ml 440 ml Labs: Laboratory Tests Test 04/03/21 17:40 SARS-CoV-2 (PCR) Positive (NOT DETECTD) H Current Medications: Meds: Laboratory Tests Test 04/03/21 17:40 Coronavirus (COVID-19)(PCR) Positive Current Medications Medications (Trade) Dose Ordered Sig/Joseline Route PRN Reason Start Time Stop Time Status Last Admin Dose Admin Acetaminophen (Tylenol) 650 mg PRN Q6HRS PRN PO MILD PAIN / TEMP > 100.3'F 03/07/21 11:45 04/04/21 05:56 DC Multi-Ingredient Ointment (Analgesic [place]) 1 rivka PRN QID PRN TP MUSCLE PAIN 03/07/21 11:45 04/04/21 05:56 DC Al Hydroxide/Mg Hydroxide (Mylanta Plus Xs) 15 ml PRN AFTMEALHC PRN PO DYSPEPSIA 03/07/21 11:45 04/04/21 05:56 DC Magnesium Hydroxide (Milk Of Magnesia) 2,400 mg PRN QHS PRN PO CONSTIPATION 03/07/21 11:45 04/04/21 05:56 DC Trazodone HCl (Desyrel) 50 mg PRN QHS PRN PO INSOMNIA, MAY REPEAT X2 03/07/21 19:45 04/04/21 05:56 DC 03/20/21 21:52 Olanzapine (ZyPREXA ZYDIS) 2.5 mg PRN Q2HRS PRN PO PSYCHOSIS 03/07/21 19:45 04/04/21 05:56 DC 03/20/21 21:52 Lorazepam (Ativan) 0.5 mg PRN Q2HR PRN PO ANXIETY / AGITATION 03/07/21 21:15 04/04/21 05:56 DC 03/17/21 15:38 Nystatin (Nystop) 1 rivka BID TP 03/08/21 21:00 03/22/21 13:04 DC 03/21/21 20:08 Cyanocobalamin (Vitamin B-12) 1,000 mcg DAILY08 PO 03/09/21 08:00 04/04/21 05:56 DC 04/03/21 08:40 Docusate Sodium (Colace) 100 mg PRN DAILY PRN PO 2ND CHOICE CONSTIPATION 03/08/21 14:00 04/04/21 05:56 DC 03/26/21 05:13 Polyethylene Glycol (miraLAX) 17 gm PRN DAILY PRN PO FIRST CHOICE CONSTIPATION 03/08/21 14:00 04/04/21 05:56 DC Sertraline HCl (Zoloft) 25 mg DAILY PO 03/09/21 09:00 03/11/21 21:00 DC 03/11/21 08:46 Sertraline HCl (Zoloft) 50 mg DAILY PO 03/12/21 09:00 04/04/21 05:56 DC 04/03/21 08:40 Enoxaparin Sodium (Lovenox 80mg Syringe) 70 mg Q12HR SQ 03/09/21 21:00 03/10/21 17:44 DC 03/10/21 09:25 Amoxicillin (Amoxil) 500 mg TID PO 03/10/21 21:00 03/17/21 16:00 DC 03/17/21 14:01 Lactobacillus Rhamnosus (Culturelle) 1 cap BID PO 03/11/21 21:00 04/04/21 05:56 DC 04/03/21 20:39 Vitamin D (Vitamin D3) 50,000 unit WEEKLY PO 03/12/21 17:30 04/04/21 05:56 DC 04/02/21 09:21 Mirtazapine (Remeron) 15 mg QHS PO 03/21/21 21:00 04/04/21 05:56 DC 04/03/21 20:39 Nystatin (Nystop) 1 rivka PRN BID PRN TP REDNESS 03/22/21 13:00 04/04/21 05:56 DC Cephalexin HCl (Keflex) 500 mg TID PO 04/02/21 14:00 04/04/21 05:56 DC 04/03/21 20:39 Risperidone (RisperDAL) 0.25 mg HS PO 04/02/21 21:00 04/04/21 05:56 DC 04/03/21 20:39 I have reviewed the current psychotropics carefully including drug interactions. Risk benefit ratio favors no change other than as noted in my dictated progress note. Diagnosis: Problems: (1) Impulse control disorder, unspecified (2) Anxiety disorder, unspecified (3) Dementia, vascular, with depression (4) Dementia, vascular, with delusions (5) Dementia in Alzheimer's disease with depression (6) Dementia in Alzheimer's disease with delusions (7) Dementia of the Alzheimer's type with early onset with behavioral dist urbance (8) Major neurocognitive disorder (9) Mild cognitive impairment (10) Psychotic disorder (11) Major depressive disorder with psychotic features JENNY CHEUNG MD Apr 04, 2021 07:28
--- NOTE | 2021-04-04 20:56 | PDOC ---
Exam Note: Carmelo Note: Please also refer to the separate dictated note~for this date of service dictated separately.~Patient seen individually. Discussed the patient with Nursing staff reviewed the chart.~Reviewed interim history and current functioning. Reviewed vital signs,~Labs/ Radiology~and current medications noted below. Continue current treatment with the changes noted in the dictated addendum note Assessment: Vital Signs/I&O: Vital Signs Date Time Temp Pulse Resp B/P (MAP) Pulse Ox O2 Delivery O2 Flow Rate FiO2 04/03/21 16:17 98.2 96 16 134/82 (99) 95 Room Air I & O 04/03/21 04/03/21 04/04/21 15:00 23:00 07:00 Intake Total 480 ml 440 ml Balance 480 ml 440 ml Current Medications: Meds: Current Medications Medications (Trade) Dose Ordered Sig/Joseline Route PRN Reason Start Time Stop Time Status Last Admin Dose Admin Acetaminophen (Tylenol) 650 mg PRN Q6HRS PRN PO MILD PAIN / TEMP > 100.3'F 03/07/21 11:45 04/04/21 05:56 DC Multi-Ingredient Ointment (Analgesic [place]) 1 rivka PRN QID PRN TP MUSCLE PAIN 03/07/21 11:45 04/04/21 05:56 DC Al Hydroxide/Mg Hydroxide (Mylanta Plus Xs) 15 ml PRN AFTMEALHC PRN PO DYSPEPSIA 03/07/21 11:45 04/04/21 05:56 DC Magnesium Hydroxide (Milk Of Magnesia) 2,400 mg PRN QHS PRN PO CONSTIPATION 03/07/21 11:45 04/04/21 05:56 DC Trazodone HCl (Desyrel) 50 mg PRN QHS PRN PO INSOMNIA, MAY REPEAT X2 03/07/21 19:45 04/04/21 05:56 DC 03/20/21 21:52 Olanzapine (ZyPREXA ZYDIS) 2.5 mg PRN Q2HRS PRN PO PSYCHOSIS 03/07/21 19:45 04/04/21 05:56 DC 03/20/21 21:52 Lorazepam (Ativan) 0.5 mg PRN Q2HR PRN PO ANXIETY / AGITATION 03/07/21 21:15 04/04/21 05:56 DC 03/17/21 15:38 Nystatin (Nystop) 1 rivka BID TP 03/08/21 21:00 03/22/21 13:04 DC 03/21/21 20:08 Cyanocobalamin (Vitamin B-12) 1,000 mcg DAILY08 PO 03/09/21 08:00 04/04/21 05:56 DC 04/03/21 08:40 Docusate Sodium (Colace) 100 mg PRN DAILY PRN PO 2ND CHOICE CONSTIPATION 03/08/21 14:00 04/04/21 05:56 DC 03/26/21 05:13 Polyethylene Glycol (miraLAX) 17 gm PRN DAILY PRN PO FIRST CHOICE CONSTIPATION 03/08/21 14:00 04/04/21 05:56 DC Sertraline HCl (Zoloft) 25 mg DAILY PO 03/09/21 09:00 03/11/21 21:00 DC 03/11/21 08:46 Sertraline HCl (Zoloft) 50 mg DAILY PO 03/12/21 09:00 04/04/21 05:56 DC 04/03/21 08:40 Enoxaparin Sodium (Lovenox 80mg Syringe) 70 mg Q12HR SQ 03/09/21 21:00 03/10/21 17:44 DC 03/10/21 09:25 Amoxicillin (Amoxil) 500 mg TID PO 03/10/21 21:00 03/17/21 16:00 DC 03/17/21 14:01 Lactobacillus Rhamnosus (Culturelle) 1 cap BID PO 03/11/21 21:00 04/04/21 05:56 DC 04/03/21 20:39 Vitamin D (Vitamin D3) 50,000 unit WEEKLY PO 03/12/21 17:30 04/04/21 05:56 DC 04/02/21 09:21 Mirtazapine (Remeron) 15 mg QHS PO 03/21/21 21:00 04/04/21 05:56 DC 04/03/21 20:39 Nystatin (Nystop) 1 rivka PRN BID PRN TP REDNESS 03/22/21 13:00 04/04/21 05:56 DC Cephalexin HCl (Keflex) 500 mg TID PO 04/02/21 14:00 04/04/21 05:56 DC 04/03/21 20:39 Risperidone (RisperDAL) 0.25 mg HS PO 04/02/21 21:00 04/04/21 05:56 DC 04/03/21 20:39 I have reviewed the current psychotropics carefully including drug interactions. Risk benefit ratio favors no change other than as noted in my dictated progress note. Diagnosis: Problems: (1) Impulse control disorder, unspecified (2) Anxiety disorder, unspecified (3) Dementia, vascular, with depression (4) Dementia, vascular, with delusions (5) Dementia in Alzheimer's disease with depression (6) Dementia in Alzheimer's disease with delusions (7) Dementia of the Alzheimer's type with early onset with behavioral disturbance (8) Major neurocognitive disorder (9) Psychotic disorder (10) Mild cognitive impairment (11) Major depressive disorder with psychotic features JENNY CHEUNG MD Apr 04, 2021 20:56
--- NOTE | 2021-04-04 21:21 | DS ---
DATE OF DISCHARGE: 04/04/2021 DISCHARGE SUMMARY/PSYCHIATRIC PROGRESS NOTE REASON FOR ADMISSION: Please refer to the admission history for details. Briefly, the patient is an 85-year-old male referred to us from [facility] in [place], [place] on account of worsening paranoia. The patient was convinced that he was in [facility] and was using extremely derogatory profanities with nursing staff, calling them "spawn of the devil." He was yelling at people, refusing to eat, refusing medications and delusional. He thought his family had abandoned him, was angry, believed his son was misappropriating his funds and his property and was quite overwhelmed with all of this. His brother is his power of state's attorney who had facilitated hospitalization and the patient was quite suspicious of the brother as well. SIGNIFICANT FINDINGS AND CLINICAL COURSE: Following admission, the patient was seen daily individually by myself from a psychiatric standpoint and Dr. Mac covered for me during my vacation. Medical followup with Dr. Latham/Dr. Taylor. The patient remained somewhat depressed, withdrawn, anxious, paranoid. Adjustments were made in his psychotropics and he was showing some improvement on a combination of Zoloft 50 mg a day; Remeron 15 mg at bedtime; Zyprexa p.r.n.; trazodone 50 mg at bedtime p.r.n., may repeat x2 for insomnia; Ativan p.r.n. and Risperdal was added 0.25 mg p.o. at bedtime for his psychosis. He was also treated for UTI, on Amoxil, which seemed to help some of his mood and paranoia as well. However, on 04/04/2021, he returned positive for COVID and was transferred to 1 [facility] surgical floor for stabilization and monitoring per Dr. Taylor. CONDITION ON DISCHARGE: Improved from a psychiatric standpoint, but was COVID positive. FINAL DIAGNOSES: Psychotic disorder, unspecified; major depressive disorder with psychotic features; major neurocognitive disorder; early Alzheimer's, vascular with delusion, depression; COVID positive status. Rest unchanged from admission. DISCHARGE MEDICATIONS: Please refer to the MRAD. Psychiatric and medical followup on 1 [facility] surgical floor. Time for discharge day management greater than 30 minutes. MARCE/EKT DR: MARCE/nts TID: [id number]
== END 2021-04-04 05:55 | disposition short-term general hospital (02) | DRG 885 ==
LOC: GEROPSY 15:19
PROVIDERS: ADMIT Psychiatry & Neurology Psychiatry; ATTEND Psychiatry & Neurology Psychiatry
DX: F32.3 Major depressive disorder, single episode, severe with psychotic features (principal); F01.51 Vascular dementia, unspecified severity, with behavioral disturbance; U07.1 COVID-19; F02.81 Dementia in other diseases classified elsewhere, unspecified severity, with behavioral disturbance; L03.90 Cellulitis, unspecified; N39.0 Urinary tract infection, site not specified; F63.9 Impulse disorder, unspecified; F41.1 Generalized anxiety disorder; G30.9 Alzheimer's disease, unspecified; G47.00 Insomnia, unspecified; H91.90 Unspecified hearing loss, unspecified ear; I35.9 Nonrheumatic aortic valve disorder, unspecified; I87.2 Venous insufficiency (chronic) (peripheral); J98.4 Other disorders of lung; M19.90 Unspecified osteoarthritis, unspecified site; M41.9 Scoliosis, unspecified; M81.0 Age-related osteoporosis without current pathological fracture; N40.0 Benign prostatic hyperplasia without lower urinary tract symptoms; Z79.899 Other long term (current) drug therapy; Z87.440 Personal history of urinary (tract) infections
CPT/HCPCS: 36415; 70450; 80053; 80061; 81001; 82306; 82607; 83036; 83540; 83550; 83735; 84436; 84443; 84480; 85025; 85379; 86592; 87077; 87086; 87186; 87505; 93005; 93971; J1650; U0003

== ENCOUNTER 2021-04-04 06:10 | Inpatient (IN) | payer SELFPAY ==
[~2021-04-04] VITALS: Ht 167.6 cm; Wt 70.3 kg
[~2021-04-04 06:10] MED LIST: ACET325T21 PO; CEPH500T PO; CHOL500021 PO; CYAN100072 PO; DOCU-109 PO; LACT1CAP21 PO; LORA0.5T21 PO; MAG30ORA2 PO; MAGN24003 PO; METH85CR TP; MIRT-37 PO; NYST15PO9 TP; OLAN5TAB67 PO; OLAN5TAB7 PO; POLY17PO5 PO; RISP0.5T24 PO; SERT50TA PO; TRAZ-120 PO
[2021-04-04] MEDS ORDERED: ACETAMINOPHEN 325 MG TABLET PO PRN (06:15)
[2021-04-04] MEDS ORDERED: traZODone 50 MG TABLET. PO PRN (06:15)
[2021-04-04] MEDS ORDERED: DOCUSATE SODIUM 100 MG CAPSULE PO PRN (06:15)
[2021-04-04] MEDS ORDERED: POLYETHYLENE GLYCOL 3350 17 GM PACKET. PO PRN (06:15)
[2021-04-04] MEDS ORDERED: LORazepam 0.5 MG TABLET PO PRN (06:15)
[2021-04-04] MEDS ORDERED: MAG HYDROX/AL HYDROX/SIMETH 30 ML ORAL.SUSP PO PRN (06:15)
[2021-04-04 06:17] VITALS: BP 183/83
--- NOTE | 2021-04-04 06:20 | NUR ---
The patient, MALIK NICOLE V, 85 y/o, M admitted by BJORN SOLANO MD, was given written information regarding hospital policies, unit procedures and contact persons. Valuables were checked and vitals obtained. Pt is admitted from [facility] positive for Covid. Pt A&O on room air. Currently pt is in bed resting. Will continue to monitor.
[2021-04-04] MEDS ORDERED: C.DIFF MED SCREEN BY RX. MC ONE (06:45)
[2021-04-04] MEDS ORDERED: METHYL SALICYLATE/MENTHOL TOPICAL OINTMENT 57GM TUBE. TP PRN (07:00)
[2021-04-04] MEDS ORDERED: MAGNESIUM HYDROXIDE 2,400 MG/30 ML ORAL.SUSP. PO PRN (07:00)
[2021-04-04] MEDS: CYANOCOBALAMIN (VITAMIN B-12) 1,000 MCG TABLET. PO SCH (08:29)
[2021-04-04] MEDS: CEPHALEXIN 250 MG CAPSULE PO SCH ×3 (08:29→20:04)
[2021-04-04] MEDS: SERTRALINE 50 MG TABLET. PO SCH (08:29)
[2021-04-04] MEDS: LACTOBACILLUS RHAMNOSUS GG 1 CAPSULE. PO SCH ×2 (08:29→20:04)
[2021-04-04] MEDS: NYSTATIN TOPICAL POWDER 15GM BOTTLE. TP SCH ×2 (08:29→20:05)
--- NOTE | 2021-04-04 09:42 | HP ---
DATE OF SERVICE: 04/04/2021 ADMIT DATE: 04/04/2021 ATTENDING PHYSICIAN: Dr. Taylor. We are asked to admit this patient for COVID positive status. HISTORY OF PRESENT ILLNESS: The patient is an 85-year-old gentleman from a local long-term. I saw him initially on the psychiatric unit a month ago. He has delusional paranoia with underlying dementia. He has been refusing his meds. He takes B12 shots. Otherwise, very little medicine. I did see him for stasis dermatitis and last week, I had him on oral cephalexin. He has no other symptoms. He denies any fevers, chills, cough or congestion. He is admitted here for isolation. CURRENT MEDICATIONS: [facility] include cephalexin t.i.d., vitamin D3, B12, docusate, lactobacillus, lorazepam, magnesium hydroxide, menthol, Remeron, nystatin, olanzapine, MiraLax, risperidone, Zoloft and trazodone. ALLERGIES: He has no known drug allergies. SOCIAL HISTORY: He is a nonsmoker, nondrinker. FAMILY HISTORY: Unobtainable. REVIEW OF SYSTEMS: Still remains unobtainable due to the patient's condition. PHYSICAL EXAMINATION: GENERAL: When I saw him, this is a pleasant elderly gentleman. VITAL SIGNS: Initial vital signs showed a blood pressure of 180/80, pulse is 68 and regular. He is afebrile. Oxygen saturation 94%. HEENT: Head is without trauma. Pupils are reactive. Sclerae nonicteric. Oropharynx clear. NECK: Supple. LUNGS: He has significant kyphoscoliosis resulting in some restriction of his lung expansion, otherwise clear. CARDIOVASCULAR SYSTEM: Showed regular heart tones. No gallop. ABDOMEN: Soft. EXTREMITIES: Showed 2+ edema. He has bilateral stasis dermatitis. NEUROLOGIC: Function pleasantly confused. Speech is fluent. No deficits. PERTINENT LABORATORY STUDIES: Recently on 03/28/2021, he had a hemoglobin of 11.8 grams, white count 6900. Chemistry panel unremarkable. Creatinine 1.1 mg percent. Serology this time positive for coronavirus on 04/03/2021. ASSESSMENT: 1. An 85-year-old gentleman with a positive coronavirus in a vaccinated patient, I suspect this is the Omicron variant. He is totally asymptomatic. 2. Stasis dermatitis. 3. Kyphoscoliosis with restrictive lung disease. 4. Underlying dementia with behavioral issues. 5. Degenerative arthritis. PLAN: 1. Continue antibiotics as ordered for stasis dermatitis. 2. No treatment for COVID necessary at this time. 3. Continue psychiatric meds. 4. Diet as tolerated. 5. COVID isolation. PARMJIT/EDIN DR: Safia TID: [id number] CC: JENNY CHEUNG MD
[2021-04-04 11:05] VITALS: BP 129/61
--- NOTE | 2021-04-04 16:32 | NUR ---
PT FOUND ON FLOOR ON ONE KNEE WITH ONE FOOT UP AND SAYING "HELP" WHEN THIS NURSE WENT IN TO CHECK ON PT. THIS NURSE ASKED PATINET IF HE WAS OKAY AND PT STATED HE WAS FINE BUT NEEDED HELP UP. THIS NURSE AND ANOTHER NURSE ON UNIT HELPED PT TO HIS FEET AND INTO A WC. PT WAS EXAMINED AND CHECKED FOR ANY INJURIES. NONE NOTED DURING THIS TIME. PTS VS OBTAINED AND ARE STABLE. PT STATED HE DID NOT FALL HE GOT ON THE FLOOR TO "CLEAN". PHYSICIAN NOTIFIED AND FAMILY NOTIFIED OF THIS INCIDENT. WILL CONTINUE TO MONITOR.
[2021-04-04 16:45] VITALS: BP 155/84
[2021-04-04 19:57] VITALS: BP 147/74
[2021-04-04] MEDS: risperiDONE 0.25 MG TABLET. PO SCH (20:04)
[2021-04-04] MEDS: MIRTAZAPINE 15 MG TABLET PO SCH (20:05)
[2021-04-04 23:09] VITALS: BP 183/79
[2021-04-05 07:05] VITALS: BP 154/80
[2021-04-05] MEDS: CYANOCOBALAMIN (VITAMIN B-12) 1,000 MCG TABLET. PO SCH (08:22)
[2021-04-05] MEDS: CEPHALEXIN 250 MG CAPSULE PO SCH (08:22)
[2021-04-05] MEDS: LACTOBACILLUS RHAMNOSUS GG 1 CAPSULE. PO SCH ×2 (08:22→21:01)
[2021-04-05] MEDS: SERTRALINE 50 MG TABLET. PO SCH (08:23)
[2021-04-05] MEDS: NYSTATIN TOPICAL POWDER 15GM BOTTLE. TP SCH ×2 (08:23→21:00)
--- NOTE | 2021-04-05 09:38 | NUR ---
PER DR. SOLANO, PT NO LONGER NEEDS KEFLEX FOR LEFT LOWER LEG CELLULITIS. THIS RN D/C'D MEDICATION.
[2021-04-05 10:48] VITALS: BP 127/66
--- NOTE | 2021-04-05 11:17 | PN ---
DATE: 04/05/2021 ATTENDING PHYSICIAN: Brandon. SUBJECTIVE: Alert, no new complaints. OBJECTIVE FINDINGS: VITAL SIGNS: Blood pressure this morning is 154/80 mmHg, pulse is 80 and regular. He is afebrile. Oxygen saturation 97% on room air. HEENT: Head is without trauma. Pupils are reactive. Sclerae nonicteric. Oropharynx clear. NECK: Supple. LUNGS: Clear with diminished breath sounds. He has significant kyphoscoliosis resulting in restriction of his lung expansion, otherwise, clear. CARDIOVASCULAR: Showed regular heart tones. ABDOMEN: Soft. EXTREMITIES: Edema has resolved. Stasis dermatitis is improved. NEUROLOGIC: Pleasantly confused. Speech is fluent. ASSESSMENT: 1. An 85-year-old gentleman positive for coronavirus in a vaccinated patient, I suspect this is an Omicron variant. He is asymptomatic and treatment is not necessary. 2. Stasis dermatitis, improved. 3. Kyphoscoliosis with restrictive lung disease. 4. Degenerative arthritis. 5. Underlying dementia with behavioral issues. PLAN: 1. We can discontinue his oral Keflex for stasis dermatitis, which has resolved. 2. No treatment for COVID necessary at this time. 3. Continue psychiatric medications. 4. COVID isolation. 5. He can go up stairs after the allotted quarantine time. JAN DR: Safia TID: [id number]
--- NOTE | 2021-04-05 15:57 | NUR ---
REPORT GIVEN TO ASHA TODD. PT TRANSFERRED TO [facility] UNIT.
[2021-04-05 18:21] VITALS: BP 138/60
[2021-04-05] MEDS: risperiDONE 0.25 MG TABLET. PO SCH (21:01)
[2021-04-05] MEDS: MIRTAZAPINE 15 MG TABLET PO SCH (21:01)
--- NOTE | 2021-04-05 21:21 | PDOC ---
Exam Note: Carmelo Note: Please also refer to the separate dictated note~for this date of service dictated separately.~Patient seen individually. Discussed the patient with Nursing staff reviewed the chart.~Reviewed interim history and current functioning. Reviewed vital signs,~Labs/ Radiology~and current medications noted below. Continue current treatment with the changes noted in the dictated addendum note Assessment: Vital Signs/I&O: Vital Signs Date Time Temp Pulse Resp B/P (MAP) Pulse Ox O2 Delivery O2 Flow Rate FiO2 04/05/21 18:21 98.6 79 18 138/60 (86) 93 Room Air 04/05/21 10:48 96.0 I & O 04/04/21 04/04/21 04/05/21 15:00 23:00 07:00 Intake Total 600 ml 460 ml 320 ml Output Total 3 ml 1 ml Balance 600 ml 457 ml 319 ml Current Medications: I have reviewed the current psychotropics carefully including drug interactions. Risk benefit ratio favors no change other than as noted in my dictated progress note. Diagnosis: Problems: (1) Impulse control disorder, unspecified (2) Anxiety disorder, unspecified (3) Dementia, vascular, with depression (4) Dementia, vascular, with delusions (5) Dementia in Alzheimer's disease with depression (6) Dementia in Alzheimer's disease with delusions (7) Dementia of the Alzheimer's type with early onset with behavioral disturbance (8) Major neurocognitive disorder (9) Psychotic disorder (10) Mild cognitive impairment (11) Major depressive disorder with psychotic features JENNY CEHUNG MD Apr 05, 2021 21:21
[2021-04-05 21:23] VITALS: BP 127/57
--- NOTE | 2021-04-06 04:57 | NUR ---
Nursing Note The patient was calm and cooperative this shift. The patient took his medication whole. The patient was alert to name, year and that he is in a hospital. The patient is currently sleeping in his room. The patient was cooperative with cares.
[2021-04-06 05:27] VITALS: BP 153/77
--- NOTE | 2021-04-06 06:48 | PDOC ---
Exam Note: Carmelo Note: This note is a late entry for 04/05/2021 covers elements not covered in my initial note. Subjective: The patient was seen on telehealth rounds in the evening of 04/05/2021 with Patito BARRY, discussed and reviewed the chart. Reviewed his interim history current and past records. Overall the patient was found on the floor at one time. No injury noted. He is less paranoid, seems to be tolerating Risperdal 0.25 mg h.s. Review of Systems: Ambulation impaired. No CV, , pulmonary, eye, ENT system symptoms on review. Mental Status Exam: The patient is oriented to himself and situation. Speech is coherent, has some latency. Abstraction fair. Computation impaired. Language function intact. Attention span short. He is less paranoid and when I specifically questioned him he felt his son was just taking care of his finances quite appropriately. This is quite a change from couple of days back before he started on Risperdal. Laboratory Data: Reviewed. Impression: Psychotic disorder unspecified. 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 Major depressive disorder with psychotic features. Anxiety disorder unspecified. I mpulse control disorder unspecified. Plan: Continue current psychotropics Zyprexa and trazodone p.r.n., Ativan p.r..n., Remeron 15 mg h.s., Zoloft 50 mg a day, and Risperdal 0.25 mg h.s. Adjust further as clinically indicated. Assessment: Vital Signs/I&O: Vital Signs Date Time Temp Pulse Resp B/P (MAP) Pulse Ox O2 Delivery O2 Flow Rate FiO2 04/06/21 05:27 97.7 66 16 153/77 (102) 96 04/05/21 22:51 Room Air 04/05/21 10:48 96.0 I & O 04/05/21 04/05/21 04/06/21 15:00 23:00 07:00 Intake Total 260 ml 720 ml 0 ml Balance 260 ml 720 ml 0 ml Current Medications: Meds: Current Medications Medications (Trade) Dose Ordered Sig/Joseline Route PRN Reason Start Time Stop Time Status Last Admin Dose Admin Acetaminophen (Tylenol) 650 mg PRN Q6HRS PRN PO PAIN MILD 04/04/21 06:15 Vitamin D (Vitamin D3) 50,000 unit QSA@0900 PO 04/09/21 09:00 Cyanocobalamin (Vitamin B-12) 1,000 mcg DAILY08 PO 04/04/21 08:00 04/05/21 08:22 Docusate Sodium (Colace) 100 mg PRN DAILY PRN PO constipation -1ST CHOICE 04/04/21 06:15 Lorazepam (Ativan) 0.5 mg PRN Q2HR PRN PO ANXIETY 04/04/21 06:15 04/04/21 20:04 Al Hydroxide/Mg Hydroxide (Mylanta Plus Xs) 15 ml PRN AFTMEALHC PRN PO DYSPEPSIA 04/04/21 06:15 Mirtazapine (Remeron) 15 mg QHS PO 04/04/21 21:00 04/05/21 21:01 Nystatin (Nystop) 1 rivka BID TP 04/04/21 09:00 04/05/21 21:00 Olanzapine (ZyPREXA ZYDIS) 2.5 mg PRN Q2HR PRN PO ANXIETY / AGITATION 04/04/21 06:15 Polyethylene Glycol (miraLAX) 17 gm PRN DAILY PRN PO CONSTIPATION 2ND CHOICE 04/04/21 06:15 Risperidone (RisperDAL) 0.25 mg QHS PO 04/04/21 21:00 04/05/21 21:01 Sertraline HCl (Zoloft) 50 mg DAILY PO 04/04/21 09:00 04/05/21 08:23 Trazodone HCl (Desyrel) 50 mg PRN QHS PRN PO INSOMNIA, MAY REPEAT IN 1HR 04/04/21 06:15 04/04/21 20:04 Cephalexin HCl (Keflex) 500 mg TID PO 04/04/21 09:00 04/05/21 09:38 DC 04/05/21 08:22 Lactobacillus Rhamnosus (Culturelle) 1 cap BID PO 04/04/21 09:00 04/05/21 21:01 Magnesium Hydroxide (Milk Of Magnesia) 2,400 mg PRN QHS PRN PO CONSTIPATION 3RD CHOICE 04/04/21 07:00 Multi-Ingredient Ointment (Analgesic [place]) 1 rivka PRN QID PRN TP MUSCLE PAIN 04/04/21 07:00 Pharmacy Consult (C.diff Med Screen By Rx) 1 each 1X ONCE [facility] 04/04/21 06:45 04/04/21 06:52 DC 04/04/21 06:45 I have reviewed the current psychotropics carefully including drug interactions. Risk benefit ratio favors no change other than as noted in my dictated progress note. Diagnosis: Problems: (1) Impulse control disorder, unspecified (2) Mild cognitive impairment (3) Anxiety disorder, unspecified (4) Dementia, vascular, with depression (5) Dementia, vascular, with delusions (6) Dementia in Alzheimer's disease with depression (7) Dementia in Alzheimer's disease with delusions (8) Dementia of the Alzheimer's type with early onset with behavioral disturbance (9) Major neurocognitive disorder (10) Major depressive disorder with psychotic features JENNY CHEUNG MD Apr 06, 2021 06:48
[2021-04-06] MEDS: CYANOCOBALAMIN (VITAMIN B-12) 1,000 MCG TABLET. PO SCH (07:50)
[2021-04-06] MEDS: LACTOBACILLUS RHAMNOSUS GG 1 CAPSULE. PO SCH ×2 (07:50→20:52)
[2021-04-06] MEDS: SERTRALINE 50 MG TABLET. PO SCH (07:50)
[2021-04-06] MEDS: NYSTATIN TOPICAL POWDER 15GM BOTTLE. TP SCH ×2 (07:57→20:52)
[2021-04-06 13:03] VITALS: BP 99/63
--- NOTE | 2021-04-06 15:36 | NUR ---
Nurse Day Shift Note: Pt presents with pleasant mood/affect. Pt is noted to spend time in his room resting and watching tv. Pt is medication compliant and cooperative with cares. Pt is able to make needs known to staff. Pt slept 6.25 hours last night. Pt continues to have a good appetite. Will continue to monitor.
[2021-04-06] MEDS: risperiDONE 0.25 MG TABLET. PO SCH (20:52)
[2021-04-06] MEDS: MIRTAZAPINE 15 MG TABLET PO SCH (20:52)
--- NOTE | 2021-04-06 20:55 | PDOC ---
Exam Note: Carmelo Note: Please also refer to the separate dictated note~for this date of service dictated separately.~Patient seen individually. Discussed the patient with Nursing staff reviewed the chart.~Reviewed interim history and current functioning. Reviewed vital signs,~Labs/ Radiology~and current medications noted below. Continue current treatment with the changes noted in the dictated addendum note Assessment: Vital Signs/I&O: Vital Signs Date Time Temp Pulse Resp B/P (MAP) Pulse Ox O2 Delivery O2 Flow Rate FiO2 04/06/21 18:40 98.6 04/06/21 13:03 18 18 99/63 (75) 96 Room Air 04/05/21 10:48 96.0 I & O 0 04/05/21 04/05/21 04/06/21 15:00 23:00 07:00 Intake Total 260 ml 720 ml 0 ml Balance 260 ml 720 ml 0 ml Current Medications: Meds: Current Medications Medications (Trade) Dose Ordered Sig/Joseline Route PRN Reason Start Time Stop Time Status Last Admin Dose Admin Acetaminophen (Tylenol) 650 mg PRN Q6HRS PRN PO PAIN MILD 04/04/21 06:15 Vitamin D (Vitamin D3) 50,000 unit QSA@0900 PO 04/09/21 09:00 Cyanocobalamin (Vitamin B-12) 1,000 mcg DAILY08 PO 04/04/21 08:00 04/06/21 07:50 Docusate Sodium (Colace) 100 mg PRN DAILY PRN PO constipation -1ST CHOICE 04/04/21 06:15 Lorazepam (Ativan) 0.5 mg PRN Q2HR PRN PO ANXIETY 04/04/21 06:15 04/04/21 20:04 Al Hydroxide/Mg Hydroxide (Mylanta Plus Xs) 15 ml PRN AFTMEALHC PRN PO DYSPEPSIA 04/04/21 06:15 Mirtazapine (Remeron) 15 mg QHS PO 04/04/21 21:00 04/06/21 20:52 Nystatin (Nystop) 1 rivka BID TP 04/04/21 09:00 04/06/21 20:52 Olanzapine (ZyPREXA ZYDIS) 2.5 mg PRN Q2HR PRN PO ANXIETY / AGITATION 04/04/21 06:15 Polyethylene Glycol (miraLAX) 17 gm PRN DAILY PRN PO CONSTIPATION 2ND CHOICE 04/04/21 06:15 Risperidone (RisperDAL) 0.25 mg QHS PO 04/04/21 21:00 04/06/21 20:52 Sertraline HCl (Zoloft) 50 mg DAILY PO 04/04/21 09:00 04/06/21 07:50 Trazodone HCl (Desyrel) 50 mg PRN QHS PRN PO INSOMNIA, MAY REPEAT IN 1HR 04/04/21 06:15 04/04/21 20:04 Cephalexin HCl (Keflex) 500 mg TID PO 04/04/21 09:00 04/05/21 09:38 DC 04/05/21 08:22 Lactobacillus Rhamnosus (Culturelle) 1 cap BID PO 04/04/21 09:00 04/06/21 20:52 Magnesium Hydroxide (Milk Of Magnesia) 2,400 mg PRN QHS PRN PO CONSTIPATION 3RD CHOICE 04/04/21 07:00 Multi-Ingredient Ointment (Analgesic [place]) 1 rivka PRN QID PRN TP MUSCLE PAIN 04/04/21 07:00 Pharmacy Consult (C.diff Med Screen By Rx) 1 each 1X ONCE MC 04/04/21 06:45 04/04/21 06:52 DC 04/04/21 06:45 I have reviewed the current psychotropics carefully including drug interactions. Risk benefit ratio favors no change other than as noted in my dictated progress note. Diagnosis: Problems: (1) Impulse control disorder, unspecified (2) Mild cognitive impairment (3) Anxiety disorder, unspecified (4) Dementia, vascular, with depression (5) Dementia, vascular, with delusions (6) Dementia in Alzheimer's disease with depression (7) Dementia in Alzheimer's disease with delusions (8) Dementia of the Alzheimer's type with early onset with behavioral disturbance (9) Major neurocognitive disorder (10) Major depressive disorder with psychotic features JENNY CHEUNG MD Apr 06, 2021 20:55
[2021-04-07 00:15] VITALS: BP 106/67
--- NOTE | 2021-04-07 05:29 | NUR ---
Nursing Note The patient was calm and cooperative this shift. The patient took his medication whole. The patient was alert to name and year. The patient is currently sleeping in his room. The patient was cooperative with cares.
[2021-04-07 06:22] VITALS: BP 148/70
[2021-04-07] MEDS: SERTRALINE 50 MG TABLET. PO SCH (08:21)
[2021-04-07] MEDS: CYANOCOBALAMIN (VITAMIN B-12) 1,000 MCG TABLET. PO SCH (08:21)
[2021-04-07] MEDS: NYSTATIN TOPICAL POWDER 15GM BOTTLE. TP SCH ×2 (08:22→20:37)
[2021-04-07] MEDS: LACTOBACILLUS RHAMNOSUS GG 1 CAPSULE. PO SCH ×2 (08:22→20:34)
[2021-04-07 11:39] VITALS: BP 100/59
--- NOTE | 2021-04-07 13:07 | NUR ---
Nursing note: Pt has been pleasant, med compliant and cooperative this shift. He is restless at times and requests help when needed. He has spent the morning watching TV and conversing with his roommate. He denies having any pain/concerns. Will continue to monitor.
--- NOTE | 2021-04-07 14:35 | NUR ---
SW attempted to contact Jon, pt brother/DPOA, and ended up leaving a message asking for a returned call.
--- NOTE | 2021-04-07 14:41 | NUR ---
ANDRE received returned call from Yeison, pt brother/DPOA, to go over pt discharge plan for next Sunday. Jon spoke to billing and paid up pt account. ANDRE noted that billing misspoke and said he would discharge tomorrow, but that was incorrect. Pt will remain in isolation until Sunday the . That also means that he will have another 4k to pay for the remainder of pt stay. Jon understand but noted his appreciation of forgiving a significant amount of the bill, because "it could always be worse". ANDER will follow up with Jon and the facility next week with updates and getting pt transferred to placement.
[2021-04-07 15:14] VITALS: BP 133/80
[2021-04-07] MEDS: MIRTAZAPINE 15 MG TABLET PO SCH (20:34)
[2021-04-07] MEDS: risperiDONE 0.25 MG TABLET. PO SCH (20:34)
--- NOTE | 2021-04-07 21:29 | PDOC ---
Exam Note: Carmelo Note: Please also refer to the separate dictated note~for this date of service dictated separately.~Patient seen individually. Discussed the patient with Nursing staff reviewed the chart.~Reviewed interim history and current functioning. Reviewed vital signs,~Labs/ Radiology~and current medications noted below. Continue current treatment with the changes noted in the dictated addendum note Assessment: Vital Signs/I&O: Vital Signs Date Time Temp Pulse Resp B/P (MAP) Pulse Ox O2 Delivery O2 Flow Rate FiO2 04/07/21 15:14 98.2 87 16 133/80 (97) 96 Room Air 04/05/21 10:48 96.0 I & O 04/06/21 04/06/21 04/07/21 15:00 23:00 07:00 Intake Total 600 ml 240 ml 0 ml Balance 600 ml 240 ml 0 ml Current Medications: I have reviewed the current psychotropics carefully including drug interactions. Risk benefit ratio favors no change other than as noted in my dictated progress note. Diagnosis: Problems: (1) Impulse control disorder, unspecified (2) Mild cognitive impairment (3) Anxiety disorder, unspecified (4) Dementia, vascular, with depression (5) Dementia, vascular, with delusions (6) Dementia in Alzheimer's disease with depression (7) Dementia in Alzheimer's disease with delusions (8) Dementia of the Alzheimer's type with early onset with behavioral disturbance (9) Major neurocognitive disorder (10) Major depressive disorder with psychotic features JENNY CHEUNG MD Apr 07, 2021 21:29
[2021-04-07 21:54] VITALS: BP 125/71
--- NOTE | 2021-04-08 03:49 | NUR ---
Nursing Note The patient was calm and cooperative this shift. The patient was interactive with staff and laughed at jokes and seemed to be in a generally happy mood this shift. The patient took his medication whole. The patient was alert to name and year. The patient is currently sleeping in his room. The patient was cooperative with cares.
[2021-04-08 06:43] VITALS: BP 178/88
--- NOTE | 2021-04-08 06:55 | PDOC ---
Exam Note: Carmelo Note: This note is a late entry for 04/06/2021 covers elements not covered in my initial note. Subjective: The patient was seen on telehealth rounds in the evening of 04/06/2021 with Sadie BARRY, discussed and reviewed the chart. Reviewed his interim history and current functioning. Patient has appeared weaker today needing more help for toileting, otherwise pleasant. Review of Systems: Positive for tiredness. Ambulation impaired. No CV, , pulmonary, eye, ENT system symptoms on review. Mental Status Exam: The patient is oriented to himself and situation. Speech is coherent, has some latency. Abstraction fair. Computation impaired. Language function intact. Attention span short. Mood and affect somewhat withdrawn. I specifically questioned him about his paranoia regarding his interfering with the patients finances and the patient said this was not happening anymore. He seems to be responding to the Risperdal. Laboratory Data: Reviewed. Impression: Psychotic disorder unspecified. 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 Major depressive disorder with psychotic features. Anxiety disorder unspecified. Impulse control disorder unspecified. Plan: Continue current psychotropics. I do not feel there is a need to increase the Risperdal and we will leave it unchanged. Assessment: Vital Signs/I&O: Vital Signs Date Time Temp Pulse Resp B/P (MAP) Pulse Ox O2 Delivery O2 Flow Rate FiO2 04/08/21 06:43 97.7 69 16 178/88 (118) 95 04/07/21 21:00 Room Air 04/05/21 10:48 96.0 I & O 04/07/21 04/07/21 04/08/21 15:00 23:00 07:00 Intake Total 480 ml 360 ml 0 ml Balance 480 ml 360 ml 0 ml Current Medications: Meds: Current Medications Medications (Trade) Dose Ordered Sig/Joseline Route PRN Reason Start Time Stop Time Status Last Admin Dose Admin Acetaminophen (Tylenol) 650 mg PRN Q6HRS PRN PO PAIN MILD 04/04/21 06:15 Vitamin D (Vitamin D3) 50,000 unit QSA@0900 PO 04/09/21 09:00 Cyanocobalamin (Vitamin B-12) 1,000 mcg DAILY08 PO 04/04/21 08:00 04/07/21 08:21 Docusate Sodium (Colace) 100 mg PRN DAILY PRN PO constipation -1ST CHOICE 04/04/21 06:15 Lorazepam (Ativan) 0.5 mg PRN Q2HR PRN PO ANXIETY 04/04/21 06:15 04/04/21 20:04 Al Hydroxide/Mg Hydroxide (Mylanta Plus Xs) 15 ml PRN AFTMEALHC PRN PO DYSPEPSIA 04/04/21 06:15 Mirtazapine (Remeron) 15 mg QHS PO 04/04/21 21:00 04/07/21 20:34 Nystatin (Nystop) 1 rivka BID TP 04/04/21 09:00 04/07/21 20:37 Olanzapine (ZyPREXA ZYDIS) 2.5 mg PRN Q2HR PRN PO ANXIETY / AGITATION 04/04/21 06:15 Polyethylene Glycol (miraLAX) 17 gm PRN DAILY PRN PO CONSTIPATION 2ND CHOICE 04/04/21 06:15 Risperidone (RisperDAL) 0.25 mg QHS PO 04/04/21 21:00 04/07/21 20:34 Sertraline HCl (Zoloft) 50 mg DAILY PO 04/04/21 09:00 04/07/21 08:21 Trazodone HCl (Desyrel) 50 mg PRN QHS PRN PO INSOMNIA, MAY REPEAT IN 1HR 04/04/21 06:15 04/04/21 20:04 Cephalexin HCl (Keflex) 500 mg TID PO 04/04/21 09:00 04/05/21 09:38 DC 04/05/21 08:22 Lactobacillus Rhamnosus (Culturelle) 1 cap BID PO 04/04/21 09:00 04/07/21 20:34 Magnesium Hydroxide (Milk Of Magnesia) 2,400 mg PRN QHS PRN PO CONSTIPATION 3RD CHOICE 04/04/21 07:00 Multi-Ingredient Ointment (Analgesic [place]) 1 rivka PRN QID PRN TP MUSCLE PAIN 04/04/21 07:00 Pharmacy Consult (C.diff Med Screen By Rx) 1 each 1X ONCE MC 04/04/21 06:45 04/04/21 06:52 DC 04/04/21 06:45 I have reviewed the current psychotropics carefully including drug interactions. Risk benefit ratio favors no change other than as noted in my dictated progress note. Diagnosis: Problems: (1) Impulse control disorder, unspecified (2) Mild cognitive impairment (3) Anxiety disorder, unspecified (4) Dementia, vascular, with depression (5) Dementia, vascular, with delusions (6) Dementia in Alzheimer's disease with depression (7) Dementia in Alzheimer's disease with delusions (8) Dementia of the Alzheimer's type with early onset with behavioral disturbance (9) Major neurocognitive disorder (10) Major depressive disorder with psychotic features JENNY CHEUNG MD Apr 08, 2021 06:55
[2021-04-08 07:08] LABS: BASO % 1 % (0-3); EOS # 0.2 x10^3/uL (0.0-0.7); EOS % 4 % (0-3); HEMATOCRIT 34.7 % (39.0-53.0); HEMOGLOBIN 11.7 g/dL (13.0-17.5); LYMPH # 1.3 x10^3/uL (1.0-4.8); LYMPH % 29 % (24-48); MEAN CORPUSCULAR HEMOGLOBIN 35 pg (25-35); MEAN CORPUSCULAR HGB CONC 34 g/dL (31-37); MEAN CORPUSCULAR VOLUME 104 fL (79-100); MONO # 0.6 x10^3/uL (0.0-1.1); MONO % 13 % (0-9); NEUT # 2.4 x10^3uL (1.8-7.7); NEUT % 53 % (31-73); PLATELET COUNT 186 x10^3/uL (140-400); RED BLOOD COUNT 3.33 x10^6/uL (4.30-5.70); RED CELL DISTRIBUTION WIDTH 13.2 % (11.5-14.5); WHITE BLOOD COUNT 4.5 x10^3/uL (4.0-11.0)
[2021-04-08 07:19] LABS: ALBUMIN 2.9 g/dL (3.4-5.0); ALBUMIN/GLOBULIN RATIO 0.7 (1.0-1.7); CALCIUM 8.3 mg/dL (8.5-10.1); CREATININE 1.2 mg/dL (0.7-1.3); GFR 57.5; POTASSIUM 3.8 mmol/L (3.5-5.1); TOTAL BILIRUBIN 0.4 mg/dL (0.2-1.0); TOTAL PROTEIN 6.8 g/dL (6.4-8.2)
[2021-04-08] MEDS: NYSTATIN TOPICAL POWDER 15GM BOTTLE. TP SCH ×2 (07:56→20:16)
[2021-04-08] MEDS: CYANOCOBALAMIN (VITAMIN B-12) 1,000 MCG TABLET. PO SCH (07:56)
[2021-04-08] MEDS: LACTOBACILLUS RHAMNOSUS GG 1 CAPSULE. PO SCH ×2 (07:56→20:16)
[2021-04-08] MEDS: SERTRALINE 50 MG TABLET. PO SCH (07:56)
--- NOTE | 2021-04-08 10:18 | NUR ---
Nursing note: Pt has been pleasant, med compliant and cooperative this shift. He has spent the morning watching TV and conversing with his roommate. He denies having any pain/concerns. Pt was incontinent of bowel and requested help with getting cleaned up. Pt cleaned and new bedding provided. He was placed in his wheelchair where he is now sitting while watching TV. Will continue to monitor.
[2021-04-08 12:41] VITALS: BP 108/75
[2021-04-08 15:46] VITALS: BP 146/75
[2021-04-08] MEDS: MIRTAZAPINE 15 MG TABLET PO SCH (20:16)
[2021-04-08] MEDS: risperiDONE 0.25 MG TABLET. PO SCH (20:16)
--- NOTE | 2021-04-08 21:15 | PDOC ---
Exam Note: Carmelo Note: Please also refer to the separate dictated note~for this date of service dictated separately.~Patient seen individually. Discussed the patient with Nursing staff reviewed the chart.~Reviewed interim history and current functioning. Reviewed vital signs,~Labs/ Radiology~and current medications noted below. Continue current treatment with the changes noted in the dictated addendum note Assessment: Vital Signs/I&O: Vital Signs Date Time Temp Pulse Resp B/P (MAP) Pulse Ox O2 Delivery O2 Flow Rate FiO2 04/08/21 15:46 97.9 78 18 146/75 (98) 93 04/08/21 08:00 Room Air 04/05/21 10:48 96.0 I & O 04/07/21 04/07/21 04/08/21 15:00 23:00 07:00 Intake Total 480 ml 360 ml 0 ml Balance 480 ml 360 ml 0 ml Labs: Laboratory Tests Test 04/08/21 06:40 White Blood Count 4.5 x10^3/uL (4.0-11.0) Red Blood Count 3.33 x10^6/uL (4.30-5.70) L Hemoglobin 11.7 g/dL (13.0-17.5) L Hematocrit 34.7 % (39.0-53.0) L Mean Corpuscular Volume 104 fL (79-100) H Mean Corpuscular Hemoglobin 35 pg (25-35) Mean Corpuscular Hemoglobin Concent 34 g/dL (31-37) Red Cell Distribution Width 13.2 % (11.5-14.5) Platelet Count 186 x10^3/uL (140-400) Neutrophils (%) (Auto) 53 % (31-73) Lymphocytes (%) (Auto) 29 % (24-48) Monocytes (%) (Auto) 13 % (0-9) H Eosinophils (%) (Auto) 4 % (0-3) H Basophils (%) (Auto) 1 % (0-3) Neutrophils # (Auto) 2.4 x10^3uL (1.8-7.7) Lymphocytes # (Auto) 1.3 x10^3/uL (1.0-4.8) Monocytes # (Auto) 0.6 x10^3/uL (0.0-1.1) Eosinophils # (Auto) 0.2 x10^3/uL (0.0-0.7) Basophils # (Auto) 0.0 x10^3/uL (0.0-0.2) Sodium Level 141 mmol/L (136-145) Potassium Level 3.8 mmol/L (3.5-5.1) Chloride Level 105 mmol/L (98-107) Carbon Dioxide Level 29 mmol/L (21-32) Anion Gap 7 (6-14) Blood Urea Nitrogen 21 mg/dL (8-26) Creatinine 1.2 mg/dL (0.7-1.3) Estimated GFR (Cockcroft-Gault) 57.5 BUN/Creatinine Ratio 18 (6-20) Glucose Level 87 mg/dL (70-99) Calcium Level 8.3 mg/dL (8.5-10.1) L Total Bilirubin 0.4 mg/dL (0.2-1.0) Aspartate Amino Transferase (AST) 19 U/L (15-37) Alanine Aminotransferase (ALT) 17 U/L (16-63) Alkaline Phosphatase 100 U/L (46-116) Total Protein 6.8 g/dL (6.4-8.2) Albumin 2.9 g/dL (3.4-5.0) L Albumin/Globulin Ratio 0.7 (1.0-1.7) L Current Medications: Meds: Laboratory Tests Test 04/08/21 06:40 White Blood Count 4.5 x10^3/uL Red Blood Count 3.33 x10^6/uL Hemoglobin 11.7 g/dL Hematocrit 34.7 % Mean Corpuscular Volume 104 fL Mean Corpuscular Hemoglobin 35 pg Mean Corpuscular Hemoglobin Concent 34 g/dL Red Cell Distribution Width 13.2 % Platelet Count 186 x10^3/uL Neutrophils (%) (Auto) 53 % Lymphocytes (%) (Auto) 29 % Monocytes (%) (Auto) 13 % Eosinophils (%) (Auto) 4 % Basophils (%) (Auto) 1 % Neutrophils # (Auto) 2.4 x10^3uL Lymphocytes # (Auto) 1.3 x10^3/uL Monocytes # (Auto) 0.6 x10^3/uL Eosinophils # (Auto) 0.2 x10^3/uL Basophils # (Auto) 0.0 x10^3/uL Sodium Level 141 mmol/L Potassium Level 3.8 mmol/L Chloride Level 105 mmol/L Carbon Dioxide Level 29 mmol/L Anion Gap 7 Blood Urea Nitrogen 21 mg/dL Creatinine 1.2 mg/dL Estimated GFR (Cockcroft-Gault) 57.5 BUN/Creatinine Ratio 18 Glucose Level 87 mg/dL Calcium Level 8.3 mg/dL Total Bilirubin 0.4 mg/dL Aspartate Amino Transf (AST/SGOT) 19 U/L Alanine Aminotransferase (ALT/SGPT) 17 U/L Alkaline Phosphatase 100 U/L Total Protein 6.8 g/dL Albumin 2.9 g/dL Albumin/Globulin Ratio 0.7 Current Medications Medications (Trade) Dose Ordered Sig/Joseline Route PRN Reason Start Time Stop Time Status Last Admin Dose Admin Acetaminophen (Tylenol) 650 mg PRN Q6HRS PRN PO PAIN MILD 04/04/21 06:15 Vitamin D (Vitamin D3) 50,000 unit QSA@0900 PO 04/09/21 09:00 Cyanocobalamin (Vitamin B-12) 1,000 mcg DAILY08 PO 04/04/21 08:00 04/08/21 07:56 Docusate Sodium (Colace) 100 mg PRN DAILY PRN PO constipation -1ST CHOICE 04/04/21 06:15 Lorazepam (Ativan) 0.5 mg PRN Q2HR PRN PO ANXIETY 04/04/21 06:15 04/04/21 20:04 Al Hydroxide/Mg Hydroxide (Mylanta Plus Xs) 15 ml PRN AFTMEALHC PRN PO DYSPEPSIA 04/04/21 06:15 Mirtazapine (Remeron) 15 mg QHS PO 04/04/21 21:00 04/08/21 20:16 Nystatin (Nystop) 1 rivka BID TP 04/04/21 09:00 04/08/21 20:16 Olanzapine (ZyPREXA ZYDIS) 2.5 mg PRN Q2HR PRN PO ANXIETY / AGITATION 04/04/21 06:15 Polyethylene Glycol (miraLAX) 17 gm PRN DAILY PRN PO CONSTIPATION 2ND CHOICE 04/04/21 06:15 Risperidone (RisperDAL) 0.25 mg QHS PO 04/04/21 21:00 04/08/21 20:16 Sertraline HCl (Zoloft) 50 mg DAILY PO 04/04/21 09:00 04/08/21 07:56 Trazodone HCl (Desyrel) 50 mg PRN QHS PRN PO INSOMNIA, MAY REPEAT IN 1HR 04/04/21 06:15 04/04/21 20:04 Cephalexin HCl (Keflex) 500 mg TID PO 04/04/21 09:00 04/05/21 09:38 DC 04/05/21 08:22 Lactobacillus Rhamnosus (Culturelle) 1 cap BID PO 04/04/21 09:00 04/08/21 20:16 Magnesium Hydroxide (Milk Of Magnesia) 2,400 mg PRN QHS PRN PO CONSTIPATION 3RD CHOICE 04/04/21 07:00 Multi-Ingredient Ointment (Analgesic [place]) 1 rivka PRN QID PRN TP MUSCLE PAIN 04/04/21 07:00 Pharmacy Consult (C.diff Med Screen By Rx) 1 each 1X ONCE MC 04/04/21 06:45 04/04/21 06:52 DC 04/04/21 06:45 I have reviewed the current psychotropics carefully including drug interactions. Risk benefit ratio favors no change other than as noted in my dictated progress note. Diagnosis: Problems: (1) Impulse control disorder, unspecified (2) Mild cognitive impairment (3) Anxiety disorder, unspecified (4) Dementia, vascular, with depression (5) Dementia, vascular, with delusions (6) Dementia in Alzheimer's disease with depression (7) Dementia in Alzheimer's disease with delusions (8) Dementia of the Alzheimer's type with early onset with behavioral disturbance (9) Major neurocognitive disorder (10) Major depressive disorder with psychotic features JENNY CHEUNG MD Apr 08, 2021 21:15
--- NOTE | 2021-04-08 22:45 | NUR ---
Patient is located in his room on assumption of care, laying in bed and watching television. He is disorganized, pleasantly confused. No delusions voiced so far this shift, no agitated behaviors. He was compliant with assessments and medications whole. Cooperative with [facility] cares. He denies any pain or discomfort and appears to be sleeping comfortably at present time. Will continue to monitor.
[2021-04-09 06:40] VITALS: BP 171/76
--- NOTE | 2021-04-09 07:25 | PDOC ---
Exam Note: Carmelo Note: This note is a late entry for 04/07/2021 covers elements not covered in my initial note. Subjective: The patient was seen on telehealth rounds on 04/07/2021 with Jennie BARRY, discussed and reviewed the chart. Reviewed his interim history and current functioning. Patient has been increasingly confused, at times withdrawn, difficulty with his transfers. He is still a little suspicious of his son, misappropriating his money but much less than before. I questioned him on this on telehealth visit. Review of Systems: Ambulation impaired, in wheelchair. No CV, , pulmonary, eye, ENT system symptoms on review. Mental Status Exam: The patient is oriented to himself and situation. Speech has moderate latency. Often response is monosyllabic. Abstraction fair. Computation impaired. Language function intact. Attention span short. Mood and affect withdrawn. Laboratory Data: Reviewed. Impression: Psychotic disorder unspecified. 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 Major depressive disorder with psychotic features. Anxiety disorder unspecified. Impulse control disorder unspecified. Plan: Continue current psychotropics. Assessment: Vital Signs/I&O: Vital Signs Date Time Temp Pulse Resp B/P (MAP) Pulse Ox O2 Delivery O2 Flow Rate FiO2 04/09/21 06:40 97.3 63 22 171/76 (107) 94 04/08/21 20:00 Room Air 04/05/21 10:48 96.0 I & O 04/08/21 04/08/21 04/09/21 15:00 23:00 07:00 Intake Total 860 ml 380 ml Balance 860 ml 380 ml Current Medications: Meds: Current Medications Medications (Trade) Dose Ordered Sig/Joseline Route PRN Reason Start Time Stop Time Status Last Admin Dose Admin Acetaminophen (Tylenol) 650 mg PRN Q6HRS PRN PO PAIN MILD 04/04/21 06:15 Vitamin D (Vitamin D3) 50,000 unit QSA@0900 PO 04/09/21 09:00 Cyanocobalamin (Vitamin B-12) 1,000 mcg DAILY08 PO 04/04/21 08:00 04/08/21 07:56 Docusate Sodium (Colace) 100 mg PRN DAILY PRN PO constipation -1ST CHOICE 04/04/21 06:15 Lorazepam (Ativan) 0.5 mg PRN Q2HR PRN PO ANXIETY 04/04/21 06:15 04/04/21 20:04 Al Hydroxide/Mg Hydroxide (Mylanta Plus Xs) 15 ml PRN AFTMEALHC PRN PO DYSPEPSIA 04/04/21 06:15 Mirtazapine (Remeron) 15 mg QHS PO 04/04/21 21:00 04/08/21 20:16 Nystatin (Nystop) 1 rivka BID TP 04/04/21 09:00 04/08/21 20:16 Olanzapine (ZyPREXA ZYDIS) 2.5 mg PRN Q2HR PRN PO ANXIETY / AGITATION 04/04/21 06:15 Polyethylene Glycol (miraLAX) 17 gm PRN DAILY PRN PO CONSTIPATION 2ND CHOICE 04/04/21 06:15 Risperidone (RisperDAL) 0.25 mg QHS PO 04/04/21 21:00 04/08/21 20:16 Sertraline HCl (Zoloft) 50 mg DAILY PO 04/04/21 09:00 04/08/21 07:56 Trazodone HCl (Desyrel) 50 mg PRN QHS PRN PO INSOMNIA, MAY REPEAT IN 1HR 04/04/21 06:15 04/04/21 20:04 Cephalexin HCl (Keflex) 500 mg TID PO 04/04/21 09:00 04/05/21 09:38 DC 04/05/21 08:22 Lactobacillus Rhamnosus (Culturelle) 1 cap BID PO 04/04/21 09:00 04/08/21 20:16 Magnesium Hydroxide (Milk Of Magnesia) 2,400 mg PRN QHS PRN PO CONSTIPATION 3RD CHOICE 04/04/21 07:00 Multi-Ingredient Ointment (Analgesic [place]) 1 rivka PRN QID PRN TP MUSCLE PAIN 04/04/21 07:00 Pharmacy Consult (C.diff Med Screen By Rx) 1 each 1X ONCE 04/04/21 06:45 04/04/21 06:52 DC 04/04/21 06:45 I have reviewed the current psychotropics carefully including drug interactions. Risk benefit ratio favors no change other than as noted in my dictated progress note. Diagnosis: Problems: (1) Impulse control disorder, unspecified (2) Mild cognitive impairment (3) Anxiety disorder, unspecified (4) Dementia, vascular, with depression (5) Dementia, vascular, with delusions (6) Dementia in Alzheimer's disease with depression (7) Dementia in Alzheimer's disease with delusions (8) Dementia of the Alzheimer's type with early onset with behavioral disturbance (9) Major neurocognitive disorder (10) Major depressive disorder with psychotic features JENNY CHEUNG MD Apr 09, 2021 07:25
[2021-04-09] MEDS: LACTOBACILLUS RHAMNOSUS GG 1 CAPSULE. PO SCH ×2 (07:53→19:28)
[2021-04-09] MEDS: SERTRALINE 50 MG TABLET. PO SCH (07:53)
[2021-04-09] MEDS: CYANOCOBALAMIN (VITAMIN B-12) 1,000 MCG TABLET. PO SCH (07:53)
[2021-04-09] MEDS: NYSTATIN TOPICAL POWDER 15GM BOTTLE. TP SCH ×2 (07:54→19:29)
--- NOTE | 2021-04-09 08:06 | PDOC ---
Exam Note: Carmelo Note: This note is a late entry for 04/08/2021 covers elements not covered in my initial note. Subjective: The patient was reviewed on 04/08/2021 with Jennie BARRY, discussed and reviewed the chart. Reviewed his interim history and current functioning. Per nursing report he is doing better, less paranoid. Review of Systems: Ambulation impaired, in wheelchair. No CV, , pulmonary, eye, ENT system symptoms on review. Mental Status Exam: The patient is oriented to himself and situation. He appears less paranoid today, slightly anxious. Speech is coherent, has some latency. Abstraction fair. Computation impaired. Language function intact. Attention span short. Mood and affect somewhat withdrawn. Laboratory Data: Reviewed. Impression: Psychotic disorder unspecified. 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 Major depressive disorder with psychotic features. Anxiety disorder unspecified. Impulse control disorder unspecified. Plan: Continue current psychotropics. Assessment: Vital Signs/I&O: Vital Signs Date Time Temp Pulse Resp B/P (MAP) Pulse Ox O2 Delivery O2 Flow Rate FiO2 04/09/21 06:40 97.3 63 22 171/76 (107) 94 04/08/21 20:00 Room Air 04/05/21 10:48 96.0 I & O 04/08/21 04/08/21 04/09/21 14:59 22:59 06:59 Intake Total 860 ml 380 ml Balance 860 ml 380 ml Current Medications: Meds: Current Medications Medications (Trade) Dose Ordered Sig/Joseline Route PRN Reason Start Time Stop Time Status Last Admin Dose Admin Acetaminophen (Tylenol) 650 mg PRN Q6HRS PRN PO PAIN MILD 04/04/21 06:15 Vitamin D (Vitamin D3) 50,000 unit QSA@0900 PO 04/09/21 09:00 04/09/21 07:53 Cyanocobalamin (Vitamin B-12) 1,000 mcg DAILY08 PO 04/04/21 08:00 04/09/21 07:53 Docusate Sodium (Colace) 100 mg PRN DAILY PRN PO constipation -1ST CHOICE 04/04/21 06:15 Lorazepam (Ativan) 0.5 mg PRN Q2HR PRN PO ANXIETY 04/04/21 06:15 04/04/21 20:04 Al Hydroxide/Mg Hydroxide (Mylanta Plus Xs) 15 ml PRN AFTMEALHC PRN PO DYSPEPSIA 04/04/21 06:15 Mirtazapine (Remeron) 15 mg QHS PO 04/04/21 21:00 04/08/21 20:16 Nystatin (Nystop) 1 rivka BID TP 04/04/21 09:00 04/09/21 07:54 Olanzapine (ZyPREXA ZYDIS) 2.5 mg PRN Q2HR PRN PO ANXIETY / AGITATION 04/04/21 06:15 Polyethylene Glycol (miraLAX) 17 gm PRN DAILY PRN PO CONSTIPATION 2ND CHOICE 04/04/21 06:15 Risperidone (RisperDAL) 0.25 mg QHS PO 04/04/21 21:00 04/08/21 20:16 Sertraline HCl (Zoloft) 50 mg DAILY PO 04/04/21 09:00 04/09/21 07:53 Trazodone HCl (Desyrel) 50 mg PRN QHS PRN PO INSOMNIA, MAY REPEAT IN 1HR 04/04/21 06:15 04/04/21 20:04 Cephalexin HCl (Keflex) 500 mg TID PO 04/04/21 09:00 04/05/21 09:38 DC 04/05/21 08:22 Lactobacillus Rhamnosus (Culturelle) 1 cap BID PO 04/04/21 09:00 04/09/21 07:53 Magnesium Hydroxide (Milk Of Magnesia) 2,400 mg PRN QHS PRN PO CONSTIPATION 3RD CHOICE 04/04/21 07:00 Multi-Ingredient Ointment (Analgesic [place]) 1 rivka PRN QID PRN TP MUSCLE PAIN 04/04/21 07:00 Pharmacy Consult (C.diff Med Screen By Rx) 1 each 1X ONCE MC 04/04/21 06:45 04/04/21 06:52 DC 04/04/21 06:45 Current Medications Medications (Trade) Dose Ordered Sig/Joseline Route PRN Reason Start Time Stop Time Status Last Admin Dose Admin Vitamin D (Vitamin D3) 50,000 unit QSA@0900 PO 04/09/21 09:00 04/09/21 07:53 I have reviewed the current psychotropics carefully including drug interactions. Risk benefit ratio favors no change other than as noted in my dictated progress note. Diagnosis: Problems: (1) Impulse control disorder, unspecified (2) Mild cognitive impairment (3) Anxiety disorder, unspecified (4) Dementia, vascular, with depression (5) Dementia, vascular, with delusions (6) Dementia in Alzheimer's disease with depression (7) Dementia in Alzheimer's disease with delusions (8) Dementia of the Alzheimer's type with early onset with behavioral disturbance (9) Major neurocognitive disorder (10) Major depressive disorder with psychotic features JENNY CHEUNG MD Apr 09, 2021 08:06
[2021-04-09] MEDS ORDERED: CHOLECALCIFEROL (VITAMIN D3) 50,000 UNIT CAPSULE PO SCH (09:00)
[2021-04-09 11:00] VITALS: BP 131/68
[2021-04-09 16:30] VITALS: BP 130/79
[2021-04-09] MEDS: MIRTAZAPINE 15 MG TABLET PO SCH (19:28)
[2021-04-09] MEDS: risperiDONE 0.25 MG TABLET. PO SCH (19:29)
--- NOTE | 2021-04-09 20:22 | PN ---
DATE: 04/09/2021 SUBJECTIVE: The patient is resting, slightly propped up in bed, in no apparent respiratory distress. On questioning him, he denied any complaint. The nursing staff did not voice any concern. OBJECTIVE: GENERAL: On examining him, he looked well and was clearly in no apparent respiratory distress, pale, but not jaundiced or cyanosed, no thyromegaly. No jugular venous distention. No limb edema. VITAL SIGNS: Her heart rate was 73, blood pressure was 131/68, temperature was 96.9, respiratory rate was 14 and oxygen saturation was 98% on room air. HEAD, EYES, EARS, NOSE, AND THROAT: Normocephalic, atraumatic. NECK: Supple. HEART: Normal first and second heart sounds. No gallop, rub or murmur. CHEST: Clear to auscultation, no crepitation or rhonchi. ABDOMEN: Distended, soft, nontender. NEUROLOGIC: He was demented, but without any obvious lateralizing sign. His intake and output were incompletely recorded. LABORATORY DATA: His most recent lab work showed a white cell count 4500, hemoglobin 12, hematocrit 35, MCV 104, and a platelet count of 186,000. His chemistry showed a serum sodium 141, potassium 3.8, chloride 105, bicarbonate 29, anion gap of 7, BUN 21, creatinine 1.2. Estimated GFR was 57 mL per minute. His glucose was 87. Calcium was 8.3. Total bilirubin, AST, ALT, alkaline phosphatase were normal. Total protein 6.8, albumin was 2.9. ASSESSMENT: 1. Asymptomatic coronavirus. 2. Kyphoscoliosis with restrictive lung disease. Other medical problems include nonrheumatic aortic valve disease, benign prostatic hypertrophy, recurrent falls and severe sensorineural deafness. PLAN: To obviously continue with all his psychotropic medication. Continue close observation. Once obviously he is off his quarantine, [facility]. KIMBER DR: Hailey TID: [id number]
--- NOTE | 2021-04-09 21:28 | PDOC ---
Exam Note: Carmelo Note: Please also refer to the separate dictated note~for this date of service dictated separately.~Patient seen individually. Discussed the patient with Nursing staff reviewed the chart.~Reviewed interim history and current functioning. Reviewed vital signs,~Labs/ Radiology~and current medications noted below. Continue current treatment with the changes noted in the dictated addendum note Assessment: Vital Signs/I&O: Vital Signs Date Time Temp Pulse Resp B/P (MAP) Pulse Ox O2 Delivery O2 Flow Rate FiO2 04/09/21 16:30 97.3 88 14 130/79 (96) 94 Room Air 04/05/21 10:48 96.0 I & O 04/08/21 04/08/21 04/09/21 15:00 23:00 07:00 Intake Total 860 ml 380 ml Balance 860 ml 380 ml Current Medications: Meds: Current Medications Medications (Trade) Dose Ordered Sig/Joseline Route PRN Reason Start Time Stop Time Status Last Admin Dose Admin Acetaminophen (Tylenol) 650 mg PRN Q6HRS PRN PO PAIN MILD 04/04/21 06:15 Vitamin D (Vitamin D3) 50,000 unit QSA@0900 PO 04/09/21 09:00 04/09/21 07:53 Cyanocobalamin (Vitamin B-12) 1,000 mcg DAILY08 PO 04/04/21 08:00 04/09/21 07:53 Docusate Sodium (Colace) 100 mg PRN DAILY PRN PO constipation -1ST CHOICE 04/04/21 06:15 Lorazepam (Ativan) 0.5 mg PRN Q2HR PRN PO ANXIETY 04/04/21 06:15 04/04/21 20:04 Al Hydroxide/Mg Hydroxide (Mylanta Plus Xs) 15 ml PRN AFTMEALHC PRN PO DYSPEPSIA 04/04/21 06:15 Mirtazapine (Remeron) 15 mg QHS PO 04/04/21 21:00 04/09/21 19:28 Nystatin (Nystop) 1 rivka BID TP 04/04/21 09:00 04/09/21 19:29 Olanzapine (ZyPREXA ZYDIS) 2.5 mg PRN Q2HR PRN PO ANXIETY / AGITATION 04/04/21 06:15 Polyethylene Glycol (miraLAX) 17 gm PRN DAILY PRN PO CONSTIPATION 2ND CHOICE 04/04/21 06:15 Risperidone (RisperDAL) 0.25 mg QHS PO 04/04/21 21:00 04/09/21 19:29 Sertraline HCl (Zoloft) 50 mg DAILY PO 04/04/21 09:00 04/09/21 07:53 Trazodone HCl (Desyrel) 50 mg PRN QHS PRN PO INSOMNIA, MAY REPEAT IN 1HR 04/04/21 06:15 04/04/21 20:04 Cephalexin HCl (Keflex) 500 mg TID PO 04/04/21 09:00 04/05/21 09:38 DC 04/05/21 08:22 Lactobacillus Rhamnosus (Culturelle) 1 cap BID PO 04/04/21 09:00 04/09/21 19:28 Magnesium Hydroxide (Milk Of Magnesia) 2,400 mg PRN QHS PRN PO CONSTIPATION 3RD CHOICE 04/04/21 07:00 Multi-Ingredient Ointment (Analgesic [place]) 1 rivka PRN QID PRN TP MUSCLE PAIN 04/04/21 07:00 Pharmacy Consult (C.diff Med Screen By Rx) 1 each 1X ONCE MC 04/04/21 06:45 04/04/21 06:52 DC 04/04/21 06:45 Current Medications Medications (Trade) Dose Ordered Sig/Joseline Route PRN Reason Start Time Stop Time Status Last Admin Dose Admin Vitamin D (Vitamin D3) 50,000 unit QSA@0900 PO 04/09/21 09:00 04/09/21 07:53 I have reviewed the current psychotropics carefully including drug interactions. Risk benefit ratio favors no change other than as noted in my dictated progress note. Diagnosis: Problems: (1) Impulse control disorder, unspecified (2) Mild cognitive impairment (3) Anxiety disorder, unspecified (4) Dementia, vascular, with depression (5) Dementia, vascular, with delusions (6) Dementia in Alzheimer's disease with depression (7) Dementia in Alzheimer's disease with delusions (8) Dementia of the Alzheimer's type with early onset with behavioral disturbance (9) Major neurocognitive disorder (10) Major depressive disorder with psychotic features JENNY CHEUNG MD Apr 09, 2021 21:28
[2021-04-09 22:00] VITALS: BP 130/79
[2021-04-10 05:29] VITALS: BP 128/63
[2021-04-10] MEDS: CYANOCOBALAMIN (VITAMIN B-12) 1,000 MCG TABLET. PO SCH (08:38)
[2021-04-10] MEDS: LACTOBACILLUS RHAMNOSUS GG 1 CAPSULE. PO SCH ×2 (08:38→19:47)
[2021-04-10] MEDS: SERTRALINE 50 MG TABLET. PO SCH (08:38)
[2021-04-10] MEDS: NYSTATIN TOPICAL POWDER 15GM BOTTLE. TP SCH ×2 (09:00→19:47)
--- NOTE | 2021-04-10 10:54 | NUR ---
Pt appropriate and absent of disruptive behaviors. He is compliant with whole medications and receptive to education provided. He ate approx 100% of breakfast and was very complementary of the tr[place] toast...he then spoke about how he did not like his mother's tristanian toast very well while growing up. He has been napping off and on in w/c during the morning. He gets along well with his room mate. Absent of SI/HI behaviors, absent of possible VH/AH. Plan of care continues, will pass to next shift.
[2021-04-10 16:01] VITALS: BP 146/67
[2021-04-10] MEDS: MIRTAZAPINE 15 MG TABLET PO SCH (19:47)
[2021-04-10] MEDS: risperiDONE 0.25 MG TABLET. PO SCH (19:47)
--- NOTE | 2021-04-10 21:36 | PDOC ---
Exam Note: Carmelo Note: Please also refer to the separate dictated note~for this date of service dictated separately.~Patient seen individually. Discussed the patient with Nursing staff reviewed the chart.~Reviewed interim history and current functioning. Reviewed vital signs,~Labs/ Radiology~and current medications noted below. Continue current treatment with the changes noted in the dictated addendum note Assessment: Vital Signs/I&O: Vital Signs Date Time Temp Pulse Resp B/P (MAP) Pulse Ox O2 Delivery O2 Flow Rate FiO2 04/10/21 16:01 98.0 65 19 146/67 (93) 97 04/10/21 11:40 Room Air 04/05/21 10:48 96.0 I & O 04/09/21 04/09/21 04/10/21 15:00 23:00 07:00 Intake Total 240 ml 290 ml 0 ml Balance 240 ml 290 ml 0 ml Current Medications: Meds: Current Medications Medications (Trade) Dose Ordered Sig/Joseline Route PRN Reason Start Time Stop Time Status Last Admin Dose Admin Acetaminophen (Tylenol) 650 mg PRN Q6HRS PRN PO PAIN MILD 04/04/21 06:15 Vitamin D (Vitamin D3) 50,000 unit QSA@0900 PO 04/09/21 09:00 04/09/21 07:53 Cyanocobalamin (Vitamin B-12) 1,000 mcg DAILY08 PO 04/04/21 08:00 04/10/21 08:38 Docusate Sodium (Colace) 100 mg PRN DAILY PRN PO constipation -1ST CHOICE 04/04/21 06:15 Lorazepam (Ativan) 0.5 mg PRN Q2HR PRN PO ANXIETY 04/04/21 06:15 04/04/21 20:04 Al Hydroxide/Mg Hydroxide (Mylanta Plus Xs) 15 ml PRN AFTMEALHC PRN PO DYSPEPSIA 04/04/21 06:15 Mirtazapine (Remeron) 15 mg QHS PO 04/04/21 21:00 04/10/21 19:47 Nystatin (Nystop) 1 rivka BID TP 04/04/21 09:00 04/10/21 19:47 Olanzapine (ZyPREXA ZYDIS) 2.5 mg PRN Q2HR PRN PO ANXIETY / AGITATION 04/04/21 06:15 Polyethylene Glycol (miraLAX) 17 gm PRN DAILY PRN PO CONSTIPATION 2ND CHOICE 04/04/21 06:15 Risperidone (RisperDAL) 0.25 mg QHS PO 04/04/21 21:00 04/10/21 19:47 Sertraline HCl (Zoloft) 50 mg DAILY PO 04/04/21 09:00 04/10/21 08:38 Trazodone HCl (Desyrel) 50 mg PRN QHS PRN PO INSOMNIA, MAY REPEAT IN 1HR 04/04/21 06:15 04/04/21 20:04 Cephalexin HCl (Keflex) 500 mg TID PO 04/04/21 09:00 04/05/21 09:38 DC 04/05/21 08:22 Lactobacillus Rhamnosus (Culturelle) 1 cap BID PO 04/04/21 09:00 04/10/21 19:47 Magnesium Hydroxide (Milk Of Magnesia) 2,400 mg PRN QHS PRN PO CONSTIPATION 3RD CHOICE 04/04/21 07:00 Multi-Ingredient Ointment (Analgesic [place]) 1 rivka PRN QID PRN TP MUSCLE PAIN 04/04/21 07:00 Pharmacy Consult (C.diff Med Screen By Rx) 1 each 1X ONCE MC 04/04/21 06:45 04/04/21 06:52 DC 04/04/21 06:45 I have reviewed the current psychotropics carefully including drug interactions. Risk benefit ratio favors no change other than as noted in my dictated progress note. Diagnosis: Problems: (1) Impulse control disorder, unspecified (2) Mild cognitive impairment (3) Anxiety disorder, unspecified (4) Dementia, vascular, with depression (5) Dementia, vascular, with delusions (6) Dementia in Alzheimer's disease with depression (7) Dementia in Alzheimer's disease with delusions (8) Dementia of the Alzheimer's type with early onset with behavioral disturbance (9) Major neurocognitive disorder (10) Major depressive disorder with psychotic features JENNY CHEUNG MD Apr 10, 2021 21:36
[2021-04-11 06:00] VITALS: BP 166/72
--- NOTE | 2021-04-11 07:30 | PDOC ---
Exam Note: Carmelo Note: This note is a late entry for 04/09/2021 covers elements not covered in my initial note. Subjective: The patient seen on telehealth rounds on 04/09/2021 with Myra BARRY and Ligia BARRY on tele-camera around the unit, discussed and reviewed the chart. Reviewed his interim history and current functioning. Patient has been doing reasonably well. Commode has been put by his bedside. He is still somewhat suspicious of his son managing his money from the rental properties but much less so than before. Review of Systems: Ambulation impaired. No CV, , pulmonary, eye, ENT system symptoms on review. Mental Status Exam: The patient is oriented to himself and situation. I questioned the patient closely about paranoia, regarding his brother or son and his finances and he was less paranoid. Speech is coherent, has some latency. Abstraction fair. Computation impaired. Language function intact. Attention span short. Mood and affect somewhat withdrawn. Laboratory Data: Reviewed. Impression: Psychotic disorder unspecified. 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 Major depressive disorder with psychotic features. Anxiety disorder unspecified. Impulse control disorder unspecified. Plan: Continue current psychotropics. Assessment: Vital Signs/I&O: Vital Signs Date Time Temp Pulse Resp B/P (MAP) Pulse Ox O2 Delivery O2 Flow Rate FiO2 04/11/21 06:00 97.3 72 18 166/72 (103) 96 Room Air 04/05/21 10:48 96.0 I & O 04/10/21 04/10/21 04/11/21 15:00 23:00 07:00 Intake Total 840 ml 120 ml Balance 840 ml 120 ml Current Medications: Meds: Current Medications Medications (Trade) Dose Ordered Sig/Joseline Route PRN Reason Start Time Stop Time Status Last Admin Dose Admin Acetaminophen (Tylenol) 650 mg PRN Q6HRS PRN PO PAIN MILD 04/04/21 06:15 Vitamin D (Vitamin D3) 50,000 unit QSA@0900 PO 04/09/21 09:00 04/09/21 07:53 Cyanocobalamin (Vitamin B-12) 1,000 mcg DAILY08 PO 04/04/21 08:00 04/10/21 08:38 Docusate Sodium (Colace) 100 mg PRN DAILY PRN PO constipation -1ST CHOICE 04/04/21 06:15 Lorazepam (Ativan) 0.5 mg PRN Q2HR PRN PO ANXIETY 04/04/21 06:15 04/04/21 20:04 Al Hydroxide/Mg Hydroxide (Mylanta Plus Xs) 15 ml PRN AFTMEALHC PRN PO DYSPEPSIA 04/04/21 06:15 Mirtazapine (Remeron) 15 mg QHS PO 04/04/21 21:00 04/10/21 19:47 Nystatin (Nystop) 1 rivka BID TP 04/04/21 09:00 04/10/21 19:47 Olanzapine (ZyPREXA ZYDIS) 2.5 mg PRN Q2HR PRN PO ANXIETY / AGITATION 04/04/21 06:15 Polyethylene Glycol (miraLAX) 17 gm PRN DAILY PRN PO CONSTIPATION 2ND CHOICE 04/04/21 06:15 Risperidone (RisperDAL) 0.25 mg QHS PO 04/04/21 21:00 04/10/21 19:47 Sertraline HCl (Zoloft) 50 mg DAILY PO 04/04/21 09:00 04/10/21 08:38 Trazodone HCl (Desyrel) 50 mg PRN QHS PRN PO INSOMNIA, MAY REPEAT IN 1HR 04/04/21 06:15 04/04/21 20:04 Cephalexin HCl (Keflex) 500 mg TID PO 04/04/21 09:00 04/05/21 09:38 DC 04/05/21 08:22 Lactobacillus Rhamnosus (Culturelle) 1 cap BID PO 04/04/21 09:00 04/10/21 19:47 Magnesium Hydroxide (Milk Of Magnesia) 2,400 mg PRN QHS PRN PO CONSTIPATION 3RD CHOICE 04/04/21 07:00 Multi-Ingredient Ointment (Analgesic [place]) 1 rivka PRN QID PRN TP MUSCLE PAIN 04/04/21 07:00 Pharmacy Consult (C.diff Med Screen By Rx) 1 each 1X ONCE MC 04/04/21 06:45 04/04/21 06:52 DC 04/04/21 06:45 I have reviewed the current psychotropics carefully including drug interactions. Risk benefit ratio favors no change other than as noted in my dictated progress note. Diagnosis: Problems: (1) Psychotic disorder (2) Impulse control disorder, unspecified (3) Mild cognitive impairment (4) Anxiety disorder, unspecified (5) Dementia, vascular, with depression (6) Dementia, vascular, with delusions (7) Dementia in Alzheimer's disease with depression (8) Dementia in Alzheimer's disease with delusions (9) Dementia of the Alzheimer's type with early onset with behavioral disturbance (10) Major neurocognitive disorder JENNY CHEUNG MD Apr 11, 2021 07:30
--- NOTE | 2021-04-11 07:48 | PDOC ---
Exam Note: Carmelo Note: This note is a late entry for 04/10/2021 covers elements not covered in my initial note. Subjective: The patient seen on telehealth rounds on 04/10/2021 with Ella BARRY, discussed and reviewed the chart. Reviewed his interim history and current functioning. Overall the patient is doing better. Review of Systems: Ambulation impaired. No CV, , pulmonary, eye, ENT system symptoms on review. Mental Status Exam: The patient is reasonably oriented. Speech is coherent. Abstraction fair. Computation impaired. Language function intact. On close questioning he was very forthcoming and much less paranoid, quite appropriate and as I questioned him specifically about money matters and his son he was able to state that his sons were doing the right thing for him, not taking his money and he states he was relieved with this. The Risperdal 0.25 mg p.o. h.s. seems to be helping his paranoia. Attention span short. Mood and affect somewhat wi thdrawn. Laboratory Data: Reviewed. Impression: Psychotic disorder unspecified. 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 Major depressive disorder with psychotic features. Anxiety disorder unspecified. Impulse control disorder unspecified. Plan: Continue current psychotropics. Assessment: Vital Signs/I&O: Vital Signs Date Time Temp Pulse Resp B/P (MAP) Pulse Ox O2 Delivery O2 Flow Rate FiO2 04/11/21 06:00 97.3 72 18 166/72 (103) 96 Room Air 04/05/21 10:48 96.0 I & O 04/10/21 04/10/21 04/11/21 14:59 22:59 06:59 Intake Total 840 ml 120 ml Balance 840 ml 120 ml Current Medications: Meds: Current Medications Medications (Trade) Dose Ordered Sig/Joseline Route PRN Reason Start Time Stop Time Status Last Admin Dose Admin Acetaminophen (Tylenol) 650 mg PRN Q6HRS PRN PO PAIN MILD 04/04/21 06:15 Vitamin D (Vitamin D3) 50,000 unit QSA@0900 PO 04/09/21 09:00 04/09/21 07:53 Cyanocobalamin (Vitamin B-12) 1,000 mcg DAILY08 PO 04/04/21 08:00 04/10/21 08:38 Docusate Sodium (Colace) 100 mg PRN DAILY PRN PO constipation -1ST CHOICE 04/04/21 06:15 Lorazepam (Ativan) 0.5 mg PRN Q2HR PRN PO ANXIETY 04/04/21 06:15 04/04/21 20:04 Al Hydroxide/Mg Hydroxide (Mylanta Plus Xs) 15 ml PRN AFTMEALHC PRN PO DYSPEPSIA 04/04/21 06:15 Mirtazapine (Remeron) 15 mg QHS PO 04/04/21 21:00 04/10/21 19:47 Nystatin (Nystop) 1 rivka BID TP 04/04/21 09:00 04/10/21 19:47 Olanzapine (ZyPREXA ZYDIS) 2.5 mg PRN Q2HR PRN PO ANXIETY / AGITATION 04/04/21 06:15 Polyethylene Glycol (miraLAX) 17 gm PRN DAILY PRN PO CONSTIPATION 2ND CHOICE 04/04/21 06:15 Risperidone (RisperDAL) 0.25 mg QHS PO 04/04/21 21:00 04/10/21 19:47 Sertraline HCl (Zoloft) 50 mg DAILY PO 04/04/21 09:00 04/10/21 08:38 Trazodone HCl (Desyrel) 50 mg PRN QHS PRN PO INSOMNIA, MAY REPEAT IN 1HR 04/04/21 06:15 04/04/21 20:04 Cephalexin HCl (Keflex) 500 mg TID PO 04/04/21 09:00 04/05/21 09:38 DC 04/05/21 08:22 Lactobacillus Rhamnosus (Culturelle) 1 cap BID PO 04/04/21 09:00 04/10/21 19:47 Magnesium Hydroxide (Milk Of Magnesia) 2,400 mg PRN QHS PRN PO CONSTIPATION 3RD CHOICE 04/04/21 07:00 Multi-Ingredient Ointment (Analgesic [place]) 1 rivka PRN QID PRN TP MUSCLE PAIN 04/04/21 07:00 Pharmacy Consult (C.diff Med Screen By Rx) 1 each 1X ONCE MC 04/04/21 06:45 04/04/21 06:52 DC 04/04/21 06:45 I have reviewed the current psychotropics carefully including drug interactions. Risk benefit ratio favors no change other than as noted in my dictated progress note. Diagnosis: Problems: (1) Impulse control disorder, unspecified (2) Mild cognitive impairment (3) Anxiety disorder, unspecified (4) Dementia, vascular, with depression (5) Dementia, vascular, with delusions (6) Dementia in Alzheimer's disease with depression (7) Dementia in Alzheimer's disease with delusions (8) Dementia of the Alzheimer's type with early onset with behavioral disturbance (9) Major neurocognitive disorder JENNY CHEUNG MD Apr 11, 2021 07:48
[2021-04-11] MEDS: LACTOBACILLUS RHAMNOSUS GG 1 CAPSULE. PO SCH ×2 (08:17→20:36)
[2021-04-11] MEDS: CYANOCOBALAMIN (VITAMIN B-12) 1,000 MCG TABLET. PO SCH (08:17)
[2021-04-11] MEDS: SERTRALINE 50 MG TABLET. PO SCH (08:18)
[2021-04-11] MEDS: NYSTATIN TOPICAL POWDER 15GM BOTTLE. TP SCH ×2 (09:00→20:36)
[2021-04-11 11:30] VITALS: BP 131/65
[2021-04-11 14:30] VITALS: BP 140/70
[2021-04-11 18:00] VITALS: BP 158/69
[2021-04-11] MEDS: MIRTAZAPINE 15 MG TABLET PO SCH (20:36)
[2021-04-11] MEDS: risperiDONE 0.25 MG TABLET. PO SCH (20:36)
--- NOTE | 2021-04-11 21:40 | PDOC ---
Exam Note: Carmelo Note: Please also refer to the separate dictated note~for this date of service dictated separately.~Patient seen individually. Discussed the patient with Nursing staff reviewed the chart.~Reviewed interim history and current functioning. Reviewed vital signs,~Labs/ Radiology~and current medications noted below. Continue current treatment with the changes noted in the dictated addendum note Assessment: Vital Signs/I&O: Vital Signs Date Time Temp Pulse Resp B/P (MAP) Pulse Ox O2 Delivery O2 Flow Rate FiO2 04/11/21 18:00 97.2 78 16 158/69 (98) 96 04/11/21 14:30 Room Air 04/05/21 10:48 96.0 I & O 04/10/21 04/10/21 04/11/21 14:59 22:59 06:59 Intake Total 840 ml 120 ml Balance 840 ml 120 ml Current Medications: Meds: Current Medications Medications (Trade) Dose Ordered Sig/Joseline Route PRN Reason Start Time Stop Time Status Last Admin Dose Admin Acetaminophen (Tylenol) 650 mg PRN Q6HRS PRN PO PAIN MILD 04/04/21 06:15 Vitamin D (Vitamin D3) 50,000 unit QSA@0900 PO 04/09/21 09:00 04/09/21 07:53 Cyanocobalamin (Vitamin B-12) 1,000 mcg DAILY08 PO 04/04/21 08:00 04/11/21 08:17 Docusate Sodium (Colace) 100 mg PRN DAILY PRN PO constipation -1ST CHOICE 04/04/21 06:15 Lorazepam (Ativan) 0.5 mg PRN Q2HR PRN PO ANXIETY 04/04/21 06:15 04/04/21 20:04 Al Hydroxide/Mg Hydroxide (Mylanta Plus Xs) 15 ml PRN AFTMEALHC PRN PO DYSPEPSIA 04/04/21 06:15 Mirtazapine (Remeron) 15 mg QHS PO 04/04/21 21:00 04/11/21 20:36 Nystatin (Nystop) 1 rivka BID TP 04/04/21 09:00 04/11/21 20:36 Olanzapine (ZyPREXA ZYDIS) 2.5 mg PRN Q2HR PRN PO ANXIETY / AGITATION 04/04/21 06:15 Polyethylene Glycol (miraLAX) 17 gm PRN DAILY PRN PO CONSTIPATION 2ND CHOICE 04/04/21 06:15 Risperidone (RisperDAL) 0.25 mg QHS PO 04/04/21 21:00 04/11/21 20:36 Sertraline HCl (Zoloft) 50 mg DAILY PO 04/04/21 09:00 04/11/21 08:18 Trazodone HCl (Desyrel) 50 mg PRN QHS PRN PO INSOMNIA, MAY REPEAT IN 1HR 04/04/21 06:15 04/04/21 20:04 Cephalexin HCl (Keflex) 500 mg TID PO 04/04/21 09:00 04/05/21 09:38 DC 04/05/21 08:22 Lactobacillus Rhamnosus (Culturelle) 1 cap BID PO 04/04/21 09:00 04/11/21 20:36 Magnesium Hydroxide (Milk Of Magnesia) 2,400 mg PRN QHS PRN PO CONSTIPATION 3RD CHOICE 04/04/21 07:00 Multi-Ingredient Ointment (Analgesic [place]) 1 rivka PRN QID PRN TP MUSCLE PAIN 04/04/21 07:00 Pharmacy Consult (C.diff Med Screen By Rx) 1 each 1X ONCE MC 04/04/21 06:45 04/04/21 06:52 DC 04/04/21 06:45 I have reviewed the current psychotropics carefully including drug interactions. Risk benefit ratio favors no change other than as noted in my dictated progress note. Diagnosis: Problems: (1) Impulse control disorder, unspecified (2) Mild cognitive impairment (3) Anxiety disorder, unspecified (4) Dementia, vascular, with depression (5) Dementia, vascular, with delusions (6) Dementia in Alzheimer's disease with depression (7) Dementia in Alzheimer's disease with delusions (8) Dementia of the Alzheimer's type with early onset with behavioral disturbance (9) Major neurocognitive disorder (10) Major depressive disorder with psychotic features JENNY CHEUNG MD Apr 11, 2021 21:40
[2021-04-11 22:27] VITALS: BP 150/76
--- NOTE | 2021-04-11 23:40 | NUR ---
Pt laying calmly in bed. Compliant with whole medications. Pleasant. Pt currently sleeping.
[2021-04-12 06:27] VITALS: BP 140/82
[2021-04-12 08:19] LABS: BASO % 1 % (0-3); EOS # 0.1 x10^3/uL (0.0-0.7); EOS % 3 % (0-3); HEMATOCRIT 34.1 % (39.0-53.0); HEMOGLOBIN 11.6 g/dL (13.0-17.5); LYMPH # 1.1 x10^3/uL (1.0-4.8); LYMPH % 22 % (24-48); MEAN CORPUSCULAR HEMOGLOBIN 35 pg (25-35); MEAN CORPUSCULAR HGB CONC 34 g/dL (31-37); MEAN CORPUSCULAR VOLUME 103 fL (79-100); MONO # 0.5 x10^3/uL (0.0-1.1); MONO % 10 % (0-9); NEUT # 3.3 x10^3uL (1.8-7.7); NEUT % 65 % (31-73); PLATELET COUNT 219 x10^3/uL (140-400); RED BLOOD COUNT 3.31 x10^6/uL (4.30-5.70); RED CELL DISTRIBUTION WIDTH 13.3 % (11.5-14.5); WHITE BLOOD COUNT 5.1 x10^3/uL (4.0-11.0)
--- NOTE | 2021-04-12 08:24 | PDOC ---
Exam Note: Carmelo Note: This note is a late entry for 04/11/2021 covers elements not covered in my initial note. Subjective: The patient seen on telehealth rounds on 04/11/2021 with Joseluis BARRY, discussed and reviewed the chart. Reviewed his interim history and current functioning. The patient has appeared more weak today, confused. We will repeat labs to make sure there is nothing medically to account for the change. Review of Systems: Ambulation impaired. No CV, , pulmonary, eye, ENT system symptoms on review. Mental Status Exam: The patient is reasonably oriented. Speech is moderate latency, low in rate and rhythm, low in volume. Abstraction fair. Computation impaired. Language function intact. Mood and affect withdrawn. Laboratory Data: Reviewed. Impression: Psychotic disorder unspecified. 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 Major depressive disorder with psychotic features. Anxiety disorder unspecified. Impulse control disorder unspecified. Plan: Continue current psychotropics. Assessment: Vital Signs/I&O: Vital Signs Date Time Temp Pulse Resp B/P (MAP) Pulse Ox O2 Delivery O2 Flow Rate FiO2 04/12/21 06:27 97.1 68 16 140/82 (101) 92 04/11/21 21:00 Room Air I & O 04/11/21 04/11/21 04/12/21 15:00 23:00 07:00 Intake Total 720 ml 340 ml Balance 720 ml 340 ml Labs: Laboratory Tests Test 04/12/21 07:34 White Blood Count 5.1 x10^3/uL (4.0-11.0) Red Blood Count 3.31 x10^6/uL (4.30-5.70) L Hemoglobin 11.6 g/dL (13.0-17.5) L Hematocrit 34.1 % (39.0-53.0) L Mean Corpuscular Volume 103 fL (79-100) H Mean Corpuscular Hemoglobin 35 pg (25-35) Mean Corpuscular Hemoglobin Concent 34 g/dL (31-37) Red Cell Distribution Width 13.3 % (11.5-14.5) Platelet Count 219 x10^3/uL (140-400) Neutrophils (%) (Auto) 65 % (31-73) Lymphocytes (%) (Auto) 22 % (24-48) L Monocytes (%) (Auto) 10 % (0-9) H Eosinophils (%) (Auto) 3 % (0-3) Basophils (%) (Auto) 1 % (0-3) Neutrophils # (Auto) 3.3 x10^3uL (1.8-7.7) Lymphocytes # (Auto) 1.1 x10^3/uL (1.0-4.8) Monocytes # (Auto) 0.5 x10^3/uL (0.0-1.1) Eosinophils # (Auto) 0.1 x10^3/uL (0.0-0.7) Basophils # (Auto) 0.0 x10^3/uL (0.0-0.2) Current Medications: Meds: Laboratory Tests Test 04/12/21 07:34 White Blood Count 5.1 x10^3/uL Red Blood Count 3.31 x10^6/uL Hemoglobin 11.6 g/dL Hematocrit 34.1 % Mean Corpuscular Volume 103 fL Mean Corpuscular Hemoglobin 35 pg Mean Corpuscular Hemoglobin Concent 34 g/dL Red Cell Distribution Width 13.3 % Platelet Count 219 x10^3/uL Neutrophils (%) (Auto) 65 % Lymphocytes (%) (Auto) 22 % Monocytes (%) (Auto) 10 % Eosinophils (%) (Auto) 3 % Basophils (%) (Auto) 1 % Neutrophils # (Auto) 3.3 x10^3uL Lymphocytes # (Auto) 1.1 x10^3/uL Monocytes # (Auto) 0.5 x10^3/uL Eosinophils # (Auto) 0.1 x10^3/uL Basophils # (Auto) 0.0 x10^3/uL Current Medications Medications (Trade) Dose Ordered Sig/Joseline Route PRN Reason Start Time Stop Time Status Last Admin Dose Admin Acetaminophen (Tylenol) 650 mg PRN Q6HRS PRN PO PAIN MILD 04/04/21 06:15 Vitamin D (Vitamin D3) 50,000 unit QSA@0900 PO 04/09/21 09:00 04/09/21 07:53 Cyanocobalamin (Vitamin B-12) 1,000 mcg DAILY08 PO 04/04/21 08:00 04/11/21 08:17 Docusate Sodium (Colace) 100 mg PRN DAILY PRN PO constipation -1ST CHOICE 04/04/21 06:15 Lorazepam (Ativan) 0.5 mg PRN Q2HR PRN PO ANXIETY 04/04/21 06:15 04/04/21 20:04 Al Hydroxide/Mg Hydroxide (Mylanta Plus Xs) 15 ml PRN AFTMEALHC PRN PO DYSPEPSIA 04/04/21 06:15 Mirtazapine (Remeron) 15 mg QHS PO 04/04/21 21:00 04/11/21 20:36 Nystatin (Nystop) 1 rivka BID TP 04/04/21 09:00 04/11/21 20:36 Olanzapine (ZyPREXA ZYDIS) 2.5 mg PRN Q2HR PRN PO ANXIETY / AGITATION 04/04/21 06:15 Polyethylene Glycol (miraLAX) 17 gm PRN DAILY PRN PO CONSTIPATION 2ND CHOICE 04/04/21 06:15 Risperidone (RisperDAL) 0.25 mg QHS PO 04/04/21 21:00 04/11/21 20:36 Sertraline HCl (Zoloft) 50 mg DAILY PO 04/04/21 09:00 04/11/21 08:18 Trazodone HCl (Desyrel) 50 mg PRN QHS PRN PO INSOMNIA, MAY REPEAT IN 1HR 04/04/21 06:15 04/04/21 20:04 Cephalexin HCl (Keflex) 500 mg TID PO 04/04/21 09:00 04/05/21 09:38 DC 04/05/21 08:22 Lactobacillus Rhamnosus (Culturelle) 1 cap BID PO 04/04/21 09:00 04/11/21 20:36 Magnesium Hydroxide (Milk Of Magnesia) 2,400 mg PRN QHS PRN PO CONSTIPATION 3RD CHOICE 04/04/21 07:00 Multi-Ingredient Ointment (Analgesic [place]) 1 rivka PRN QID PRN TP MUSCLE PAIN 04/04/21 07:00 Pharmacy Consult (C.diff Med Screen By Rx) 1 each 1X ONCE 04/04/21 06:45 04/04/21 06:52 DC 04/04/21 06:45 I have reviewed the current psychotropics carefully including drug interactions. Risk benefit ratio favors no change other than as noted in my dictated progress note. Diagnosis: Problems: (1) Impulse control disorder, unspecified (2) Mild cognitive impairment (3) Anxiety disorder, unspecified (4) Dementia, vascular, with depression (5) Dementia, vascular, with delusions (6) Dementia in Alzheimer's disease with depression (7) Dementia in Alzheimer's disease with delusions (8) Dementia of the Alzheimer's type with early onset with behavioral disturbance (9) Major neurocognitive disorder (10) Major depressive disorder with psychotic features JENNY CHEUNG MD Apr 12, 2021 08:24
[2021-04-12] MEDS: SERTRALINE 50 MG TABLET. PO SCH (08:40)
[2021-04-12] MEDS: LACTOBACILLUS RHAMNOSUS GG 1 CAPSULE. PO SCH ×2 (08:40→19:26)
[2021-04-12] MEDS: CYANOCOBALAMIN (VITAMIN B-12) 1,000 MCG TABLET. PO SCH (08:40)
[2021-04-12 08:41] LABS: ALBUMIN 2.9 g/dL (3.4-5.0); ALBUMIN/GLOBULIN RATIO 0.8 (1.0-1.7); CALCIUM 8.5 mg/dL (8.5-10.1); POTASSIUM 4.2 mmol/L (3.5-5.1); TOTAL BILIRUBIN 0.4 mg/dL (0.2-1.0); TOTAL PROTEIN 6.6 g/dL (6.4-8.2)
[2021-04-12] MEDS: NYSTATIN TOPICAL POWDER 15GM BOTTLE. TP SCH ×2 (09:00→19:27)
[2021-04-12 12:25] VITALS: BP 90/52
[2021-04-12 15:50] VITALS: BP 118/58
--- NOTE | 2021-04-12 16:08 | NUR ---
Nursing note: Patient is cooperative with assessment. He was compliant with medications taken whole. He is alert and oriented to self only, calm, pleasant, cooperative. At times patient can have some confusion and be unrealistic to limitations. He propels self in w/c independently & self transfers.Patient has been staying in his room due to being in isolation for COVID. Patient denies pain/discomfort at this time. He is currently sitting in his w/c in his room watching TV. Will continue to monitor.
[2021-04-12] MEDS: MIRTAZAPINE 15 MG TABLET PO SCH (19:26)
[2021-04-12] MEDS: risperiDONE 0.25 MG TABLET. PO SCH (19:26)
[2021-04-12 21:12] VITALS: BP 163/82
--- NOTE | 2021-04-12 21:43 | PDOC ---
Exam Note: Carmelo Note: Please also refer to the separate dictated note~for this date of service dictated separately.~Patient seen individually. Discussed the patient with Nursing staff reviewed the chart.~Reviewed interim history and current functioning. Reviewed vital signs,~Labs/ Radiology~and current medications noted below. Continue current treatment with the changes noted in the dictated addendum note Assessment: Vital Signs/I&O: Vital Signs Date Time Temp Pulse Resp B/P (MAP) Pulse Ox O2 Delivery O2 Flow Rate FiO2 04/12/21 21:12 98.2 80 16 163/82 (109) 96 04/12/21 08:00 Room Air I & O 04/11/21 04/11/21 04/12/21 15:00 23:00 07:00 Intake Total 720 ml 340 ml Balance 720 ml 340 ml Labs: Laboratory Tests Test 04/12/21 07:34 White Blood Count 5.1 x10^3/uL (4.0-11.0) Red Blood Count 3.31 x10^6/uL (4.30-5.70) L Hemoglobin 11.6 g/dL (13.0-17.5) L Hematocrit 34.1 % (39.0-53.0) L Mean Corpuscular Volume 103 fL (79-100) H Mean Corpuscular Hemoglobin 35 pg (25-35) Mean Corpuscular Hemoglobin Concent 34 g/dL (31-37) Red Cell Distribution Width 13.3 % (11.5-14.5) Platelet Count 219 x10^3/uL (140-400) Neutrophils (%) (Auto) 65 % (31-73) Lymphocytes (%) (Auto) 22 % (24-48) L Monocytes (%) (Auto) 10 % (0-9) H Eosinophils (%) (Auto) 3 % (0-3) Basophils (%) (Auto) 1 % (0-3) Neutrophils # (Auto) 3.3 x10^3uL (1.8-7.7) Lymphocytes # (Auto) 1.1 x10^3/uL (1.0-4.8) Monocytes # (Auto) 0.5 x10^3/uL (0.0-1.1) Eosinophils # (Auto) 0.1 x10^3/uL (0.0-0.7) Basophils # (Auto) 0.0 x10^3/uL (0.0-0.2) Sodium Level 141 mmol/L (136-145) Potassium Level 4.2 mmol/L (3.5-5.1) Chloride Level 105 mmol/L (98-107) Carbon Dioxide Level 28 mmol/L (21-32) Anion Gap 8 (6-14) Blood Urea Nitrogen 19 mg/dL (8-26) Creatinine 1.0 mg/dL (0.7-1.3) Estimated GFR (Cockcroft-Gault) 71.0 BUN/Creatinine Ratio 19 (6-20) Glucose Level 89 mg/dL (70-99) Calcium Level 8.5 mg/dL (8.5-10.1) Total Bilirubin 0.4 mg/dL (0.2-1.0) Aspartate Amino Transferase (AST) 16 U/L (15-37) Alanine Aminotransferase (ALT) 17 U/L (16-63) Alkaline Phosphatase 100 U/L (46-116) Total Protein 6.6 g/dL (6.4-8.2) Albumin 2.9 g/dL (3.4-5.0) L Albumin/Globulin Ratio 0.8 (1.0-1.7) L Current Medications: Meds: Laboratory Tests Test 04/12/21 07:34 White Blood Count 5.1 x10^3/uL Red Blood Count 3.31 x10^6/uL Hemoglobin 11.6 g/dL Hematocrit 34.1 % Mean Corpuscular Volume 103 fL Mean Corpuscular Hemoglobin 35 pg Mean Corpuscular Hemoglobin Concent 34 g/dL Red Cell Distribution Width 13.3 % Platelet Count 219 x10^3/uL Neutrophils (%) (Auto) 65 % Lymphocytes (%) (Auto) 22 % Monocytes (%) (Auto) 10 % Eosinophils (%) (Auto) 3 % Basophils (%) (Auto) 1 % Neutrophils # (Auto) 3.3 x10^3uL Lymphocytes # (Auto) 1.1 x10^3/uL Monocytes # (Auto) 0.5 x10^3/uL Eosinophils # (Auto) 0.1 x10^3/uL Basophils # (Auto) 0.0 x10^3/uL Sodium Level 141 mmol/L Potassium Level 4.2 mmol/L Chloride Level 105 mmol/L Carbon Dioxide Level 28 mmol/L Anion Gap 8 Blood Urea Nitrogen 19 mg/dL Creatinine 1.0 mg/dL Estimated GFR (Cockcroft-Gault) 71.0 BUN/Creatinine Ratio 19 Glucose Level 89 mg/dL Calcium Level 8.5 mg/dL Total Bilirubin 0.4 mg/dL Aspartate Amino Transf (AST/SGOT) 16 U/L Alanine Aminotransferase (ALT/SGPT) 17 U/L Alkaline Phosphatase 100 U/L Total Protein 6.6 g/dL Albumin 2.9 g/dL Albumin/Globulin Ratio 0.8 Current Medications Medications (Trade) Dose Ordered Sig/Joseline Route PRN Reason Start Time Stop Time Status Last Admin Dose Admin Acetaminophen (Tylenol) 650 mg PRN Q6HRS PRN PO PAIN MILD 04/04/21 06:15 Vitamin D (Vitamin D3) 50,000 unit QSA@0900 PO 04/09/21 09:00 04/09/21 07:53 Cyanocobalamin (Vitamin B-12) 1,000 mcg DAILY08 PO 04/04/21 08:00 04/12/21 08:40 Docusate Sodium (Colace) 100 mg PRN DAILY PRN PO constipation -1ST CHOICE 04/04/21 06:15 Lorazepam (Ativan) 0.5 mg PRN Q2HR PRN PO ANXIETY 04/04/21 06:15 04/04/21 20:04 Al Hydroxide/Mg Hydroxide (Mylanta Plus Xs) 15 ml PRN AFTMEALHC PRN PO DYSPEPSIA 04/04/21 06:15 Mirtazapine (Remeron) 15 mg QHS PO 04/04/21 21:00 04/12/21 19:26 Nystatin (Nystop) 1 rivka BID TP 04/04/21 09:00 04/12/21 19:27 Olanzapine (ZyPREXA ZYDIS) 2.5 mg PRN Q2HR PRN PO ANXIETY / AGITATION 04/04/21 06:15 Polyethylene Glycol (miraLAX) 17 gm PRN DAILY PRN PO CONSTIPATION 2ND CHOICE 04/04/21 06:15 Risperidone (RisperDAL) 0.25 mg QHS PO 04/04/21 21:00 04/12/21 19:26 Sertraline HCl (Zoloft) 50 mg DAILY PO 04/04/21 09:00 04/12/21 08:40 Trazodone HCl (Desyrel) 50 mg PRN QHS PRN PO INSOMNIA, MAY REPEAT IN 1HR 04/04/21 06:15 04/04/21 20:04 Cephalexin HCl (Keflex) 500 mg TID PO 04/04/21 09:00 04/05/21 09:38 DC 04/05/21 08:22 Lactobacillus Rhamnosus (Culturelle) 1 cap BID PO 04/04/21 09:00 04/12/21 19:26 Magnesium Hydroxide (Milk Of Magnesia) 2,400 mg PRN QHS PRN PO CONSTIPATION 3RD CHOICE 04/04/21 07:00 Multi-Ingredient Ointment (Analgesic [place]) 1 rivka PRN QID PRN TP MUSCLE PAIN 04/04/21 07:00 Pharmacy Consult (C.diff Med Screen By Rx) 1 each 1X ONCE MC 04/04/21 06:45 04/04/21 06:52 DC 04/04/21 06:45 I have reviewed the current psychotropics carefully including drug interactions. Risk benefit ratio favors no change other than as noted in my dictated progress note. Diagnosis: Problems: (1) Impulse control disorder, unspecified (2) Mild cognitive impairment (3) Anxiety disorder, unspecified (4) Dementia, vascular, with depression (5) Dementia, vascular, with delusions (6) Dementia in Alzheimer's disease with depression (7) Dementia in Alzheimer's disease with delusions (8) Dementia of the Alzheimer's type with early onset with behavioral disturbance (9) Major neurocognitive disorder (10) Major depressive disorder with psychotic features JENNY CHEUNG MD Apr 12, 2021 21:43
[2021-04-13 06:06] VITALS: BP 136/59
--- NOTE | 2021-04-13 08:25 | PDOC ---
Exam Note: Carmelo Note: This note is a late entry for 04/12/2021 covers elements not covered in my initial note. Subjective: The patient seen on telehealth rounds on 04/12/2021 with Liliana Parada RN, discussed and reviewed the chart. Reviewed his interim history and current functioning. Overall the patient has been less tired today, less paranoid regarding his son but this still persists as I questioned him individually but less than before. Review of Systems: Ambulation impaired. No CV, , pulmonary, eye, ENT system symptoms on review. Mental Status Exam: The patient is reasonably oriented. Speech is coherent, has some latency. Abstraction fair. Computation impaired. Language function intact. Attention span short. Mood and affect somewhat withdrawn. Laboratory Data: Reviewed. Impression: Psychotic disorder unspecified. 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 Major depressive disorder with psychotic features. Anxiety disorder unspecified. Impulse control disorder unspecified. Plan: Continue current psychotropics. The patient is tolerating Risperdal 0.25 mg p.o. h.s. As I questioned him closely during the telehealth visit he indicated that his son was probably not cheating him out of his money but there was no way for him to confirm this till he got back home and he was wanting to return to take appraisal of his properties to confirm that financially he was not being duped by his family. Despite this paranoia was improved. We will continue to monitor and adjust psychotropics as clinically indicated. Assessment: Vital Signs/I&O: Vital Signs Date Time Temp Pulse Resp B/P (MAP) Pulse Ox O2 Delivery O2 Flow Rate FiO2 04/13/21 06:06 97.8 68 18 136/59 (84) 95 04/12/21 20:00 Room Air I & O 04/12/21 04/12/21 04/13/21 15:00 23:00 07:00 Intake Total 700 ml 380 ml 0 ml Balance 700 ml 380 ml 0 ml Current Medications: Meds: Current Medications Medications (Trade) Dose Ordered Sig/Joseline Route PRN Reason Start Time Stop Time Status Last Admin Dose Admin Acetaminophen (Tylenol) 650 mg PRN Q6HRS PRN PO PAIN MILD 04/04/21 06:15 Vitamin D (Vitamin D3) 50,000 unit QSA@0900 PO 04/09/21 09:00 04/09/21 07:53 Cyanocobalamin (Vitamin B-12) 1,000 mcg DAILY08 PO 04/04/21 08:00 04/12/21 08:40 Docusate Sodium (Colace) 100 mg PRN DAILY PRN PO constipation -1ST CHOICE 04/04/21 06:15 Lorazepam (Ativan) 0.5 mg PRN Q2HR PRN PO ANXIETY 04/04/21 06:15 04/04/21 20:04 Al Hydroxide/Mg Hydroxide (Mylanta Plus Xs) 15 ml PRN AFTMEALHC PRN PO DYSPEPSIA 04/04/21 06:15 Mirtazapine (Remeron) 15 mg QHS PO 04/04/21 21:00 04/12/21 19:26 Nystatin (Nystop) 1 rivka BID TP 04/04/21 09:00 04/12/21 19:27 Olanzapine (ZyPREXA ZYDIS) 2.5 mg PRN Q2HR PRN PO ANXIETY / AGITATION 04/04/21 06:15 Polyethylene Glycol (miraLAX) 17 gm PRN DAILY PRN PO CONSTIPATION 2ND CHOICE 04/04/21 06:15 Risperidone (RisperDAL) 0.25 mg QHS PO 04/04/21 21:00 04/12/21 19:26 Sertraline HCl (Zoloft) 50 mg DAILY PO 04/04/21 09:00 04/12/21 08:40 Trazodone HCl (Desyrel) 50 mg PRN QHS PRN PO INSOMNIA, MAY REPEAT IN 1HR 04/04/21 06:15 04/04/21 20:04 Cephalexin HCl (Keflex) 500 mg TID PO 04/04/21 09:00 04/05/21 09:38 DC 04/05/21 08:22 Lactobacillus Rhamnosus (Culturelle) 1 cap BID PO 04/04/21 09:00 04/12/21 19:26 Magnesium Hydroxide (Milk Of Magnesia) 2,400 mg PRN QHS PRN PO CONSTIPATION 3RD CHOICE 04/04/21 07:00 Multi-Ingredient Ointment (Analgesic [place]) 1 rivka PRN QID PRN TP MUSCLE PAIN 04/04/21 07:00 Pharmacy Consult (C.diff Med Screen By Rx) 1 each 1X ONCE MC 04/04/21 06:45 04/04/21 06:52 DC 04/04/21 06:45 I have reviewed the current psychotropics carefully including drug interactions. Risk benefit ratio favors no change other than as noted in my dictated progress note. 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
[2021-04-13] MEDS: LACTOBACILLUS RHAMNOSUS GG 1 CAPSULE. PO SCH ×2 (09:21→21:07)
[2021-04-13] MEDS: SERTRALINE 50 MG TABLET. PO SCH (09:21)
[2021-04-13] MEDS: CYANOCOBALAMIN (VITAMIN B-12) 1,000 MCG TABLET. PO SCH (09:21)
[2021-04-13] MEDS: NYSTATIN TOPICAL POWDER 15GM BOTTLE. TP SCH ×2 (09:22→21:00)
--- NOTE | 2021-04-13 10:20 | NUR ---
Nursing note: Pt is pleasant, med compliant and cooperative. Pt states he "needs to get home so I can go to the bank and get everything done". Pt redirected at that time and has no further concerns. He is currently in bed watching TV. Will continue to monitor.
[2021-04-13 11:40] VITALS: BP 118/63
[2021-04-13 15:18] VITALS: BP 149/71
[2021-04-13] MEDS: MIRTAZAPINE 15 MG TABLET PO SCH (21:07)
[2021-04-13] MEDS: risperiDONE 0.25 MG TABLET. PO SCH (21:07)
[2021-04-13 21:14] VITALS: BP 142/74
--- NOTE | 2021-04-13 21:22 | PN ---
DATE: 04/13/2021 ATTENDING PHYSICIAN: Dr. Taylor. SUBJECTIVE: No new complaints. He is eating well. He has no obvious distress. OBJECTIVE FINDINGS: VITAL SIGNS: He is afebrile. Blood pressure is 118/63 mmHg, oxygen saturation 96% on room air. HEENT: Head is without trauma. Pupils are reactive. Sclerae nonicteric. Oropharynx is clear. NECK: Supple, no bruits identified. LUNGS: Good breath sounds. CARDIOVASCULAR: Regular heart tones. No gallops. ABDOMEN: Soft. EXTREMITIES: Without edema. He has stasis dermatitis. Swelling is down. ASSESSMENT: 1. An 85-year-old gentleman with asymptomatic coronavirus. 2. Kyphoscoliosis with restrictive lung disease. 3. Non-rheumatic aortic valve disease. 4. Benign prostatic hypertrophy. 5. Recurrent falls. PLAN: 1. Psych meds were reviewed and continued. 2. Diet as tolerated. 3. He will finish his quarantine [facility] SMITH DR: Safia TID: [id number]
--- NOTE | 2021-04-13 21:27 | PDOC ---
Exam Note: Carmelo Note: Please also refer to the separate dictated note~for this date of service dictated separately.~Patient seen individually. Discussed the patient with Nursing staff reviewed the chart.~Reviewed interim history and current functioning. Reviewed vital signs,~Labs/ Radiology~and current medications noted below. Continue current treatment with the changes noted in the dictated addendum note Assessment: Vital Signs/I&O: Vital Signs Date Time Temp Pulse Resp B/P (MAP) Pulse Ox O2 Delivery O2 Flow Rate FiO2 04/13/21 21:14 97.3 71 20 142/74 (96) 93 Room Air I & O 04/12/21 04/12/21 04/13/21 15:00 23:00 07:00 Intake Total 700 ml 380 ml 0 ml Balance 700 ml 380 ml 0 ml Current Medications: Meds: Current Medications Medications (Trade) Dose Ordered Sig/Joseline Route PRN Reason Start Time Stop Time Status Last Admin Dose Admin Acetaminophen (Tylenol) 650 mg PRN Q6HRS PRN PO PAIN MILD 04/04/21 06:15 Vitamin D (Vitamin D3) 50,000 unit QSA@0900 PO 04/09/21 09:00 04/09/21 07:53 Cyanocobalamin (Vitamin B-12) 1,000 mcg DAILY08 PO 04/04/21 08:00 04/13/21 09:21 Docusate Sodium (Colace) 100 mg PRN DAILY PRN PO constipation -1ST CHOICE 04/04/21 06:15 Lorazepam (Ativan) 0.5 mg PRN Q2HR PRN PO ANXIETY 04/04/21 06:15 04/04/21 20:04 Al Hydroxide/Mg Hydroxide (Mylanta Plus Xs) 15 ml PRN AFTMEALHC PRN PO DYSPEPSIA 04/04/21 06:15 Mirtazapine (Remeron) 15 mg QHS PO 04/04/21 21:00 04/13/21 21:07 Nystatin (Nystop) 1 rivka BID TP 04/04/21 09:00 04/13/21 21:00 Olanzapine (ZyPREXA ZYDIS) 2.5 mg PRN Q2HR PRN PO ANXIETY / AGITATION 04/04/21 06:15 Polyethylene Glycol (miraLAX) 17 gm PRN DAILY PRN PO CONSTIPATION 2ND CHOICE 04/04/21 06:15 Risperidone (RisperDAL) 0.25 mg QHS PO 04/04/21 21:00 04/13/21 21:07 Sertraline HCl (Zoloft) 50 mg DAILY PO 04/04/21 09:00 04/13/21 09:21 Trazodone HCl (Desyrel) 50 mg PRN QHS PRN PO INSOMNIA, MAY REPEAT IN 1HR 04/04/21 06:15 04/04/21 20:04 Cephalexin HCl (Keflex) 500 mg TID PO 04/04/21 09:00 04/05/21 09:38 DC 04/05/21 08:22 Lactobacillus Rhamnosus (Culturelle) 1 cap BID PO 04/04/21 09:00 04/13/21 21:07 Magnesium Hydroxide (Milk Of Magnesia) 2,400 mg PRN QHS PRN PO CONSTIPATION 3RD CHOICE 04/04/21 07:00 Multi-Ingredient Ointment (Analgesic [place]) 1 rivka PRN QID PRN TP MUSCLE PAIN 04/04/21 07:00 Pharmacy Consult (C.diff Med Screen By Rx) 1 each 1X ONCE MC 04/04/21 06:45 04/04/21 06:52 DC 04/04/21 06:45 I have reviewed the current psychotropics carefully including drug interactions. Risk benefit ratio favors no change other than as noted in my dictated progress note. Diagnosis: Problems: (1) Impulse control disorder, unspecified (2) Mild cognitive impairment (3) Anxiety disorder, unspecified (4) Dementia, vascular, with depression (5) Dementia, vascular, with delusions (6) Dementia in Alzheimer's disease with depression (7) Dementia in Alzheimer's disease with delusions (8) Dementia of the Alzheimer's type with early onset with behavioral disturbance (9) Major neurocognitive disorder (10) Major depressive disorder with psychotic features JENNY CHEUNG MD Apr 13, 2021 21:27
--- NOTE | 2021-04-14 05:41 | NUR ---
Nursing Note The patient was located in his room in his wheel chair for his assessment and medication pass. The patient was pleasant and interactive this shift. The patient took medication whole. The patient was putting his belongings in bags and setting them out in his room during his assessment and when questioned about this the patient said he was leaving. This nurse informed the patient that he would not be leaving this shift and the patient accepted this information and allowed this nurse to place his belongings in his locker. The patient is currently sleeping.
[2021-04-14 06:00] VITALS: BP 173/70
[2021-04-14] MEDS: SERTRALINE 50 MG TABLET. PO SCH (08:13)
[2021-04-14] MEDS: CYANOCOBALAMIN (VITAMIN B-12) 1,000 MCG TABLET. PO SCH (08:13)
[2021-04-14] MEDS: LACTOBACILLUS RHAMNOSUS GG 1 CAPSULE. PO SCH ×2 (08:13→19:20)
[2021-04-14] MEDS: NYSTATIN TOPICAL POWDER 15GM BOTTLE. TP SCH ×2 (08:14→19:21)
[2021-04-14 10:14] VITALS: BP 112/70
--- NOTE | 2021-04-14 10:37 | NUR ---
Nursing note: Pt sitting in bed eating breakfast at time of AM med pass and assessment. He is pleasant, med compliant and cooperative. Pt has no complaints of pain/concerns. He is currently sitting in his wheelchair looking out his window. Will continue to monitor.
--- NOTE | 2021-04-14 11:10 | NUR ---
ANDRE returned call to JAYA Watson at [facility] to give her an update on pt. ANDRE noted that pt does have periods of confusion and some delusional behavior; however, no physical or verbal aggression noted. ANDRE questioned Walter what time she would prefer for transport and Walter noted afternoon would be best so they can ensure that the pharmacy can fill pt meds. ANDRE to also send updated notes over for review. ANDRE will confirm with Walter the transport time once one has been confirmed.
--- NOTE | 2021-04-14 11:30 | NUR ---
ANDRE contacted pt brother/DPOA, Jon, to let him know that pt is going to discharge tomorrow as planned. Yeison questioned if pt medication list would be sent over to the facility. ANDRE noted that the list would be done either today if not tomorrow morning. Yeison will make sure to set up transport with [facility] and suggested a picket [employer] of 1230 so he would be able to make it to [facility] by 1400. If anything changes or needs to be addressed, ANDRE would be in contact.
[2021-04-14 14:15] VITALS: BP 133/70
--- NOTE | 2021-04-14 18:21 | NUR ---
[facility] Social Work Discharge Planning Form Patient Name MALIK NICOLE V Admit Date: 07 March 2021 DISCHARGE PLAN Discharge Destination: Pt to discharge to [facility] Care Assessment: N/A Level II Assessment: N/A Transportation: [facility] to pick pt up between 1230 and 1300. Special Instructions/Notes: Please fax discharge orders, discharge medications and discharge summary the fax number listed below. DISCHARGE TO FACILITY Facility: [facility] Address: [address] [place] [address] Contact Name: CeasarKain/Admissions: Contact Name: JAYA Watson: PCP: Dr. Christiano Mcarthur
[2021-04-14] MEDS: MIRTAZAPINE 15 MG TABLET PO SCH (19:20)
[2021-04-14] MEDS: risperiDONE 0.25 MG TABLET. PO SCH (19:20)
--- NOTE | 2021-04-14 21:49 | PN ---
DATE: 04/14/2021 ATTENDING PHYSICIAN: Dr. Taylor. SUBJECTIVE: No new complaints. He is alert, eating well. He is happy that he is being discharged tomorrow. OBJECTIVE FINDINGS: VITAL SIGNS: Blood pressure this morning is 112/70, pulse is regular. He is afebrile. Oxygen saturation 97% on room air. HEENT: Head is without trauma. Pupils are reactive. Sclerae nonicteric. Oropharynx is clear. NECK: Supple, no bruits. LUNGS: Clear. CARDIOVASCULAR: Regular heart tones. ABDOMEN: Soft. EXTREMITIES: Without edema. ASSESSMENT: 1. An 85-year-old gentleman with a symptomatic coronavirus. 2. Kyphoscoliosis with restrictive lung disease. 3. Non-rheumatic aortic valve disease. 4. Benign prostatic hypertrophy. 5. Recurrent falls. 6. Cellulitis of the lower extremity, improved. PLAN: 1. Meds reviewed and continued. 2. Diet as tolerated. 3. Tentative discharge plans for [facility] in [place], [place] tomorrow. PARMJIT/XIOMARA DR: Safia TID: [id number]
--- NOTE | 2021-04-14 21:51 | PDOC ---
Exam Note: Carmelo Note: Please also refer to the separate dictated note~for this date of service dictated separately.~Patient seen individually. Discussed the patient with Nursing staff reviewed the chart.~Reviewed interim history and current functioning. Reviewed vital signs,~Labs/ Radiology~and current medications noted below. Continue current treatment with the changes noted in the dictated addendum note Assessment: Vital Signs/I&O: Vital Signs Date Time Temp Pulse Resp B/P (MAP) Pulse Ox O2 Delivery O2 Flow Rate FiO2 04/14/21 21:20 Room Air 04/14/21 14:15 97.9 89 16 133/70 (91) 97 I & O 04/13/21 04/13/21 04/14/21 15:00 23:00 07:00 Intake Total 240 ml 240 ml 0 ml Balance 240 ml 240 ml 0 ml Current Medications: Meds: Current Medications Medications (Trade) Dose Ordered Sig/Joseline Route PRN Reason Start Time Stop Time Status Last Admin Dose Admin Acetaminophen (Tylenol) 650 mg PRN Q6HRS PRN PO PAIN MILD 04/04/21 06:15 Vitamin D (Vitamin D3) 50,000 unit QSA@0900 PO 04/09/21 09:00 04/09/21 07:53 Cyanocobalamin (Vitamin B-12) 1,000 mcg DAILY08 PO 04/04/21 08:00 04/14/21 08:13 Docusate Sodium (Colace) 100 mg PRN DAILY PRN PO constipation -1ST CHOICE 04/04/21 06:15 Lorazepam (Ativan) 0.5 mg PRN Q2HR PRN PO ANXIETY 04/04/21 06:15 04/04/21 20:04 Al Hydroxide/Mg Hydroxide (Mylanta Plus Xs) 15 ml PRN AFTMEALHC PRN PO DYSPEPSIA 04/04/21 06:15 Mirtazapine (Remeron) 15 mg QHS PO 04/04/21 21:00 04/14/21 19:20 Nystatin (Nystop) 1 rivka BID TP 04/04/21 09:00 04/14/21 19:21 Olanzapine (ZyPREXA ZYDIS) 2.5 mg PRN Q2HR PRN PO ANXIETY / AGITATION 04/04/21 06:15 Polyethylene Glycol (miraLAX) 17 gm PRN DAILY PRN PO CONSTIPATION 2ND CHOICE 04/04/21 06:15 Risperidone (RisperDAL) 0.25 mg QHS PO 04/04/21 21:00 04/14/21 19:20 Sertraline HCl (Zoloft) 50 mg DAILY PO 04/04/21 09:00 04/14/21 08:13 Trazodone HCl (Desyrel) 50 mg PRN QHS PRN PO INSOMNIA, MAY REPEAT IN 1HR 04/04/21 06:15 04/04/21 20:04 Cephalexin HCl (Keflex) 500 mg TID PO 04/04/21 09:00 04/05/21 09:38 DC 04/05/21 08:22 Lactobacillus Rhamnosus (Culturelle) 1 cap BID PO 04/04/21 09:00 04/14/21 19:20 Magnesium Hydroxide (Milk Of Magnesia) 2,400 mg PRN QHS PRN PO CONSTIPATION 3RD CHOICE 04/04/21 07:00 Multi-Ingredient Ointment (Analgesic [place]) 1 rivka PRN QID PRN TP MUSCLE PAIN 04/04/21 07:00 Pharmacy Consult (C.diff Med Screen By Rx) 1 each 1X ONCE MC 04/04/21 06:45 04/04/21 06:52 DC 04/04/21 06:45 I have reviewed the current psychotropics carefully including drug interactions. Risk benefit ratio favors no change other than as noted in my dictated progress note. Diagnosis: Problems: (1) Impulse control disorder, unspecified (2) Mild cognitive impairment (3) Anxiety disorder, unspecified (4) Dementia, vascular, with depression (5) Dementia, vascular, with delusions (6) Dementia in Alzheimer's disease with depression (7) Dementia in Alzheimer's disease with delusions (8) Dementia of the Alzheimer's type with early onset with behavioral disturbance (9) Major neurocognitive disorder (10) Major depressive disorder with psychotic features JENNY CHEUNG MD Apr 14, 2021 21:51
--- NOTE | 2021-04-15 03:51 | NUR ---
Patient has been calm and pleasant. He is compliant with medications taken whole. Patient stated he is looking forward to going home in the morning. He slept well.
[2021-04-15 05:21] VITALS: BP 137/61
--- NOTE | 2021-04-15 07:47 | PDOC ---
Exam Note: Carmelo Note: This note is a late entry for 04/13/2021 covers elements not covered in my initial note. Subjective: The patient seen on telehealth rounds on 04/13/2021 with Jennie BARRY, discussed and reviewed the chart. Reviewed his interim history and current functioning. 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 He is less obsessed with this today. He still has some paranoia about his on stealing money from him but not as evident today during the telehealth visit. Review of Systems: Ambulation impaired. No CV, , pulmonary, eye, ENT system symptoms on review. Mental Status Exam: The patient is oriented to himself and situation. Speech is coherent. Abstraction fair. Computation impaired. Language function intact. Attention span short. Mood and affect somewhat withdrawn but he was still animated, verbal and interactive, less paranoid as I met with him. Laboratory Data: Reviewed. Impression: Mild cognitive impairment versus major neurocognitive disorder, early Alzheimer, vascular with delusions. Major depressive disorder with psychotic features. Anxiety disorder unspecified. Impulse control disorder unspecified. Plan: Continue current psychotropics. The patient may transition back to [facility] on 04/14/21 following completion of his quarantine. Assessment: Vital Signs/I&O: Vital Signs Date Time Temp Pulse Resp B/P (MAP) Pulse Ox O2 Delivery O2 Flow Rate FiO2 04/15/21 05:21 97.9 68 16 137/61 (86) 94 Room Air I & O 04/14/21 04/14/21 04/15/21 15:00 23:00 07:00 Intake Total 240 ml 340 ml Balance 240 ml 340 ml Current Medications: Meds: Current Medications Medications (Trade) Dose Ordered Sig/Joseline Route PRN Reason Start Time Stop Time Status Last Admin Dose Admin Acetaminophen (Tylenol) 650 mg PRN Q6HRS PRN PO PAIN MILD 04/04/21 06:15 Vitamin D (Vitamin D3) 50,000 unit QSA@0900 PO 04/09/21 09:00 04/09/21 07:53 Cyanocobalamin (Vitamin B-12) 1,000 mcg DAILY08 PO 04/04/21 08:00 04/14/21 08:13 Docusate Sodium (Colace) 100 mg PRN DAILY PRN PO constipation -1ST CHOICE 04/04/21 06:15 Lorazepam (Ativan) 0.5 mg PRN Q2HR PRN PO ANXIETY 04/04/21 06:15 04/04/21 20:04 Al Hydroxide/Mg Hydroxide (Mylanta Plus Xs) 15 ml PRN AFTMEALHC PRN PO DYSPEPSIA 04/04/21 06:15 Mirtazapine (Remeron) 15 mg QHS PO 04/04/21 21:00 04/14/21 19:20 Nystatin (Nystop) 1 rivka BID TP 04/04/21 09:00 04/14/21 19:21 Olanzapine (ZyPREXA ZYDIS) 2.5 mg PRN Q2HR PRN PO ANXIETY / AGITATION 04/04/21 06:15 Polyethylene Glycol (miraLAX) 17 gm PRN DAILY PRN PO CONSTIPATION 2ND CHOICE 04/04/21 06:15 Risperidone (RisperDAL) 0.25 mg QHS PO 04/04/21 21:00 04/14/21 19:20 Sertraline HCl (Zoloft) 50 mg DAILY PO 04/04/21 09:00 04/14/21 08:13 Trazodone HCl (Desyrel) 50 mg PRN QHS PRN PO INSOMNIA, MAY REPEAT IN 1HR 04/04/21 06:15 04/04/21 20:04 Cephalexin HCl (Keflex) 500 mg TID PO 04/04/21 09:00 04/05/21 09:38 DC 04/05/21 08:22 Lactobacillus Rhamnosus (Culturelle) 1 cap BID PO 04/04/21 09:00 04/14/21 19:20 Magnesium Hydroxide (Milk Of Magnesia) 2,400 mg PRN QHS PRN PO CONSTIPATION 3RD CHOICE 04/04/21 07:00 Multi-Ingredient Ointment (Analgesic [place]) 1 rivka PRN QID PRN TP MUSCLE PAIN 04/04/21 07:00 Pharmacy Consult (C.diff Med Screen By Rx) 1 each 1X ONCE 04/04/21 06:45 04/04/21 06:52 DC 04/04/21 06:45 I have reviewed the current psychotropics carefully including drug interactions. Risk benefit ratio favors no change other than as noted in my dictated progress note. Diagnosis: Problems: (1) Impulse control disorder, unspecified (2) Mild cognitive impairment (3) Anxiety disorder, unspecified (4) Dementia, vascular, with depression (5) Dementia, vascular, with delusions (6) Dementia in Alzheimer's disease with depression (7) Dementia in Alzheimer's disease with delusions (8) Dementia of the Alzheimer's type with early onset with behavioral disturbance (9) Major neurocognitive disorder (10) Major depressive disorder with psychotic features JENNY CHEUNG MD Apr 15, 2021 07:47
--- NOTE | 2021-04-15 08:04 | PDOC ---
Exam Note: Carmelo Note: This note is a late entry for 04/14/2021 covers elements not covered in my initial note. Subjective: The patient was reviewed with nursing staff Marlee BARRY on 04/14/2021, discussed and reviewed the chart. Reviewed his interim history and current functioning. Plan is to transition the patient back to [facility] in [place] tomorrow on 04/15/21. Review of Systems: Per nursing report, ambulation impaired, in wheelchair. No CV, , pulmonary, eye, ENT system symptoms on review. Mental Status Exam: The patient is reasonably oriented. Speech is coherent. Abstraction fair. Computation impaired. Language function intact. Attention span short. Mood and affect less paranoid. No suicidal or homicidal ideation. Laboratory Data: Reviewed. Impression: Psychotic disorder unspecified. 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 Major depressive disorder with psychotic features. Anxiety disorder unspecified. Impulse control disorder unspecified. Plan: Continue current psychotropics. Plan is to transition the patient back to [facility] in [place] tomorrow on 04/15/21. Assessment: Vital Signs/I&O: Vital Signs Date Time Temp Pulse Resp B/P (MAP) Pulse Ox O2 Delivery O2 Flow Rate FiO2 04/15/21 05:21 97.9 68 16 137/61 (86) 94 Room Air I & O 04/14/21 04/14/21 04/15/21 15:00 23:00 07:00 Intake Total 240 ml 340 ml Balance 240 ml 340 ml Current Medications: Meds: Current Medications Medications (Trade) Dose Ordered Sig/Joseline Route PRN Reason Start Time Stop Time Status Last Admin Dose Admin Acetaminophen (Tylenol) 650 mg PRN Q6HRS PRN PO PAIN MILD 04/04/21 06:15 Vitamin D (Vitamin D3) 50,000 unit QSA@0900 PO 04/09/21 09:00 04/09/21 07:53 Cyanocobalamin (Vitamin B-12) 1,000 mcg DAILY08 PO 04/04/21 08:00 04/14/21 08:13 Docusate Sodium (Colace) 100 mg PRN DAILY PRN PO constipation -1ST CHOICE 04/04/21 06:15 Lorazepam (Ativan) 0.5 mg PRN Q2HR PRN PO ANXIETY 04/04/21 06:15 04/04/21 20:04 Al Hydroxide/Mg Hydroxide (Mylanta Plus Xs) 15 ml PRN AFTMEALHC PRN PO DYSPEPSIA 04/04/21 06:15 Mirtazapine (Remeron) 15 mg QHS PO 04/04/21 21:00 04/14/21 19:20 Nystatin (Nystop) 1 rivka BID TP 04/04/21 09:00 04/14/21 19:21 Olanzapine (ZyPREXA ZYDIS) 2.5 mg PRN Q2HR PRN PO ANXIETY / AGITATION 04/04/21 06:15 Polyethylene Glycol (miraLAX) 17 gm PRN DAILY PRN PO CONSTIPATION 2ND CHOICE 04/04/21 06:15 Risperidone (RisperDAL) 0.25 mg QHS PO 04/04/21 21:00 04/14/21 19:20 Sertraline HCl (Zoloft) 50 mg DAILY PO 04/04/21 09:00 04/14/21 08:13 Trazodone HCl (Desyrel) 50 mg PRN QHS PRN PO INSOMNIA, MAY REPEAT IN 1HR 04/04/21 06:15 04/04/21 20:04 Cephalexin HCl (Keflex) 500 mg TID PO 04/04/21 09:00 04/05/21 09:38 DC 04/05/21 08:22 Lactobacillus Rhamnosus (Culturelle) 1 cap BID PO 04/04/21 09:00 04/14/21 19:20 Magnesium Hydroxide (Milk Of Magnesia) 2,400 mg PRN QHS PRN PO CONSTIPATION 3RD CHOICE 04/04/21 07:00 Multi-Ingredient Ointment (Analgesic [place]) 1 rivka PRN QID PRN TP MUSCLE PAIN 04/04/21 07:00 Pharmacy Consult (C.diff Med Screen By Rx) 1 each 1X ONCE MC 04/04/21 06:45 04/04/21 06:52 DC 04/04/21 06:45 I have reviewed the current psychotropics carefully including drug interactions. Risk benefit ratio favors no change other than as noted in my dictated progress note. Diagnosis: Problems: (1) Psychotic disorder (2) Impulse control disorder, unspecified (3) Mild cognitive impairment (4) Anxiety disorder, unspecified (5) Dementia, vascular, with depression (6) Dementia, vascular, with delusions (7) Dementia in Alzheimer's disease with depression (8) Dementia in Alzheimer's disease with delusions (9) Dementia of the Alzheimer's type with early onset with behavioral disturbance (10) Major neurocognitive disorder (11) Major depressive disorder with psychotic features JENNY CHEUNG MD Apr 15, 2021 08:04
[2021-04-15] MEDS: CYANOCOBALAMIN (VITAMIN B-12) 1,000 MCG TABLET. PO SCH (08:16)
[2021-04-15] MEDS: SERTRALINE 50 MG TABLET. PO SCH (08:16)
[2021-04-15] MEDS: NYSTATIN TOPICAL POWDER 15GM BOTTLE. TP SCH (08:16)
[2021-04-15] MEDS: LACTOBACILLUS RHAMNOSUS GG 1 CAPSULE. PO SCH (08:16)
--- NOTE | 2021-04-15 12:34 | NUR ---
Discharge Note: MALIK NICOLE V Discharge instructions and discharge home medications reviewed with ASHA Watson at [facility] and a copy given. All questions have been answered and understanding verbalized. The following instructions and handouts were given: D/C med list and instructions to continue all meds as prescribed. Patient discharged to [facility] with all his belongings via w/c accompanied by [facility] transportation.
--- NOTE | 2021-04-15 20:14 | DS ---
DATE OF DISCHARGE: 04/15/2021 ATTENDING PHYSICIAN: Dr. Taylor. FINAL DISCHARGE DIAGNOSES: 1. An 85-year-old gentleman from the [facility] Unit with asymptomatic coronavirus. 2. Kyphoscoliosis with restrictive lung disease. 3. Non-rheumatic aortic valve disease. 4. Benign prostatic hypertrophy. 5. Recurrent falls. 6. Cellulitis, improved. HISTORY AND PHYSICAL: The patient is a pleasant gentleman from the [facility] unit. He tested positive for coronavirus. He was asymptomatic. He has been fully vaccinated. He was sent to the medical floor for quarantine. PHYSICAL EXAMINATION: Please see the dictated note. PERTINENT LABORATORY AND DATA STUDIES: Are on the database. Please refer to it. COURSE IN THE HOSPITAL: He had an eventful a 10-day course of quarantine. Diet was advanced and home meds continued. Psychiatry recommendation on the chart. On the 11 hospital day, arrangements were made for the patient to go to [facility] in [place], [place]. His discharge meds have been simplified. He will continue his Tylenol, cholecalciferol, docusate, lorazepam p.r.n., magnesium hydroxide, Remeron, nystatin, olanzapine, risperidone, MiraLax, Zoloft and trazodone doses unchanged. His prognosis is guarded. He was discharged then from our hospital in stable condition with explicit drug and followup care. JUAN DR: PARMJIT/steph TID: [id number] CC: JENNY CHEUNG MD
== END 2021-04-15 12:47 | DRG 178 ==
LOC: 1 SOUTH 06:10 → LND 04-05 15:28
PROVIDERS: ADMIT Hospitalist; ATTEND Hospitalist
DX: U07.1 COVID-19 (principal); F01.51 Vascular dementia, unspecified severity, with behavioral disturbance; F02.81 Dementia in other diseases classified elsewhere, unspecified severity, with behavioral disturbance; F32.3 Major depressive disorder, single episode, severe with psychotic features; L03.119 Cellulitis of unspecified part of limb; F41.9 Anxiety disorder, unspecified; F63.9 Impulse disorder, unspecified; G30.9 Alzheimer's disease, unspecified; H90.5 Unspecified sensorineural hearing loss; I35.9 Nonrheumatic aortic valve disorder, unspecified; I87.2 Venous insufficiency (chronic) (peripheral); J98.4 Other disorders of lung; M19.90 Unspecified osteoarthritis, unspecified site; M41.9 Scoliosis, unspecified; N40.0 Benign prostatic hyperplasia without lower urinary tract symptoms; R29.6 Repeated falls
CPT/HCPCS: 36415; 80053; 85025